=== PATIENT | male | born 1960 | race Caucasian/White ===

== ENCOUNTER 2018-07-15 12:39 | Observation (INO) | payer BC, OTHER ==
[2018-07-15] MEDS ORDERED: NS 0.9% 1000 ML* 1,000 ML IV ONE (12:48)
--- NOTE | 2018-07-15 12:48 | ED ---
Complex/Multi-Sys Presentation - HPI Summary HPI Summary: Patient is a 57 y/o M w/ c/o body aches, chest "ache" for the past three days. He describes present Sx as "like the flu times 100". Patient also notes that he felt constipated this morning. He endorses tremors, chills, diaphoresis which has progressively worsened since Sx onset three days ago. He states oral temp taken at home was 99 F. He denies sore throat, rhinorrhea, and cough. Patient endorses some abdominal pain and decreased appetite. No diarrhea or rashes reported. PMHx of mesothelioma, last chemo was in April. Oncologist is in [place]. On triage, pain is rated 4/10, nothing is noted aggravate/alleviate Sx. Home medications and allergies are reviewed. - History Of Current Complaint Time Seen by Provider: 07/15/18 12:42 Hx Obtained From: Patient Onset/Duration: Lasting Days - three days, Still Present, Worse Since Timing: Constant, Days - three days Severity Currently: Moderate - 4/10 Severity Initially: Mild Character: Dull - "aches" Aggravating Factor(s): nothing Alleviating Factor(s): nothing Associated Signs And Symptoms: Positive: Chest Pain - "ache", Abdominal Pain, Diaphoresis, Other - POSITIVE - BODY ACHES, CONSTIPATION, TREMORS, CHILLS, DECREASED APPETITE; NEGATIVE - SORE THROAT, RHINORRHEA, RASHES. Negative: Cough , Diarrhea, Fever - Allergies/Home Medications Allergies/Adverse Reactions: Allergies Allergy/AdvReac Type Severity Reaction Status Date / Time No Known Allergies Allergy Verified 06/17/16 14:02 Home Medications: Home Medications ALPRAZolam TAB* [Xanax TAB*] 2 mg PO DAILY PRN 07/15/18 [History Confirmed 07/15] Docusate CAP* [Colace Cap*] 100 mg PO DAILY PRN 07/15/18 [History Confirmed 11/27] Hydromorphone HCl [Dilaudid] 4 - 6 mg PO Q4HR PRN 07/15/18 [History Confirmed ] Meclizine TAB* [Antivert 12.5 TAB*] 25 mg PO TID PRN 07/15/18 [History Confirmed 07/15/18] OLANzapine TAB* [Zyprexa 5 MG TAB*] 5 mg PO DAILY 07/15/18 [History Confirmed ] Omeprazole CAP* [Prilosec CAP* 20 MG] 40 mg PO BID 07/15/18 [History Confirmed 07/15/18] Rivaroxaban TAB(*) [Xarelto 20 mg] 20 mg PO DAILY 07/15/18 [History Confirmed ] fentaNYL PATCHs 100 MCG/HR* [Duragesic Patch 100 Mcg/Hr *] 100 mcg TRANSDERM Q72H 07/15/18 [History Confirmed 07/15/18] PMH/Surg Hx/FS Hx/Imm Hx Endocrine/Hematology History: Denies: Hx Diabetes, Hx Thyroid Disease Cardiovascular History: Denies: Hx Hypertension, Hx Pacemaker/ICD Respiratory History: Denies: Hx Asthma History: Denies: Hx Dialysis, Hx Renal Disease Sensory History: Denies: Hx Hearing Aid Psychiatric History: Denies: Hx Panic Disorder - Cancer History Cancer Type, Location and Year: Mesothelioma - Surgical History Surgery Procedure, Year, and Place: APPENDECTOMY - Family History Known Family History: Positive: Hypertension, Other - No FHx aneurysm, DVT Negative: Cardiac Disease, Diabetes - Social History Alcohol Use: Occasionally Substance Use Type: Reports: None Smoking Status (MU): Never Smoked Tobacco Review of Systems Positive: Chills, Skin Diaphoresis, Other - POSITIVE - BODY ACHES, TREMORS . Negative: Fever Positive: Nasal Discharge - NEGATIVE - RHINORRHEA . Negative: Sore Throat Positive: Chest Pain - ACHES Negative: Cough Positive: Abdominal Pain, Other - POSITIVE - DECREASED APPETITE . Negative: Diarrhea Negative: Rash All Other Systems Reviewed And Are Negative: Yes Physical Exam - Summary Physical Exam Summary: Appearance: Pale-appearing, Well-nourished, lying in bed Skin: Warm, dry, no obvious rash Eyes: sclera anicteric, no conjunctival pallor ENT: mucous membranes moist, pharynx appears normal Neck: Supple, nontender Respiratory: Clear to auscultation, no signs of respiratory distress Cardiovascular: Normal S1, S2. No murmurs. Normal distal pulses in tibial and radial bilaterally. Abdomen: Soft, nontender, normal active bowel sounds present Musculoskeletal: Normal, Strength/ROM Intact Neurological: A&Ox3, awake and alert, mentation is normal, speech is fluent and appropriate Psychiatric: affect is normal, does not appear anxious or depressed Triage Information Reviewed: Yes Vital Signs On Initial Exam: Initial Vitals Temp Pulse Resp BP Pulse Ox 98.3 F 88 16 140/84 98 07/15/18 12:45 07/15/18 12:45 07/15/18 12:45 07/15/18 12:45 07/15/18 12:45 Vital Signs Reviewed: Yes Diagnostics - Laboratory Result Diagrams: 07/16/18 05:00 07/16/18 05:00 Lab Statement: Any lab studies that have been ordered have been reviewed, and results considered in the medical decision making process. - Radiology CXR Radiology Interpretation Completed By: Radiologist Summary of Radiographic Findings: IMPRESSION: There is likely some right pleural effusion with some scarring in the right. lung base. Surgical clips are noted in the right hilum. Central line is in the superior. vena cava. This report was reviewed by ED physician. - EKG 1300 Cardiac Rate: NL - rate of 88 bpm EKG Rhythm: Sinus Rhythm Summary of EKG Findings: Normal EKG: NSR at 88 BPM, P waves, QRS complex, and T waves are within normal limits, T waves and intervals are normal, no ischemic changes. This is a normal EKG Re-Evaluation - Re-Evaluation First Eval Re-Evaluation Time: 14:48 Comment: Results of labs and tests were discussed. Second Eval Re-Evaluation Time: 16:05 Change: Worse Comment: Patient is incapable of ambulation at this time, patient to be admitted. He notes that he was diagnosed with mesothelioma in April, was treated at [facility]. He states treatment was going well at first but he eventually developed a fever. Patient was admitted to [facility] and treated there. Complex Multi-Symp Course/Dx Course Of Treatment: Patient is a 57 y/o M w/ c/o body aches, chest "ache" for the past three days. He describes present Sx as "like the flu times 100". Patient also notes that he felt constipated this morning. He endorses tremors, chills, diaphoresis which has progressively worsened since Sx onset three days ago. He states oral temp taken at home was 99 F. He denies sore throat, rhinorrhea, and cough. Patient endorses some abdominal pain and decreased appetite. No diarrhea or rashes reported. PMHx of mesothelioma, last chemo was in April. Oncologist is in [place]. On physical exam, patient is noted to be pale-appearing. CXR IMPRESSION: There is likely some right pleural effusion with some scarring in the right. lung base. Surgical clips are noted in the right hilum. Central line is in the superior. vena cava. Normal EKG: NSR at 88 BPM, P waves, QRS complex, and T waves are within normal limits, T waves and intervals are normal, no ischemic changes. This is a normal EKG. Labs showed RBC 3.42, Hgb 10.4, Hct 32, RDW 18, absolute lymphs 0.5, creatinine 1.33, glucose 107, lactic acid 1.1, alk phos 113, globulin 4.1, albumin/globulin 0.9. UA was negative. Influenza A, B was negative. 1605 - Patient is incapable of ambulation at this time, patient to be admitted. He notes that he was diagnosed with mesothelioma in April, was treated at [facility]. He states treatment was going well at first but he eventually developed a fever. Patient was admitted to [facility] and treated there. Patient's case was discussed with Dr. Fernandez at 1622, Dr. Fernandez accepts for admission. 173 - , patient's oncologist, was reached. He recommends Chest CT and checking iron of patient. - Diagnoses Provider Diagnoses: Generalized weakness, Failure to thrive in adult, Mesothelioma - Physician Notifications Discussed Care Of Patient With: Leia Fernandez Time Discussed With Above Provider: 16:22 Instructed by Provider To: Other - Patient's case was discussed with Dr. Fernandez at 1622, Dr. Fernandez accepts for admission. 173 - , patient's oncologist, was reached. He recommends Chest CT and checking iron of patient. Discharge - Sign-Out/Discharge Documenting (check all that apply): Patient Departure - admit - Discharge Plan Condition: Good Disposition: ADMITTED TO [facility] - Billing Disposition and Condition Condition: GOOD Disposition: Admitted to [facility] - Attestation Statements Document Initiated by Scribe: Yes Documenting Scribe: LADY ROBLES Provider For Whom Scribe is Documenting (Include Credential): SHAREE LOWE MD Scribe Attestation: I, LADY ROBLES , scribed for SHAREE LOWE MD on 07/16/18 at 1009. Scribe Documentation Reviewed: Yes Provider Attestation: The documentation as recorded by the scribeLADY accurately reflects the service I personally performed and the decisions made by me, SHAREE LOWE MD Status of Scribe Document: Viewed
--- OUTSIDE RECORDS SUMMARY | 2018-07-15 12:59 | XMS REPORT ---
:1960 External Reference #:[id number] Author Organization [facility] 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 Bridgett uAstin PA Primary Care Physician Unavailable Payers Type Date Identification Numbers Payment Provider Subscriber Commercial Policy Number: [id number] [facility] Alber Pollack PayID: [id number] [address] [place] [address] Problems Date Description Provider Status Onset: 09/20/2017 Heartburn Angelo Nuñez MD Active Onset: 09/20/2017 Gastrointestinal tract finding Angelo Nuñez MD Active Onset: 09/20/2017 Screening for malignant neoplasm of Angelo Nuñez MD Active colon Onset: 09/20/2017 Right upper quadrant pain Angelo Nuñez MD Active Onset: 09/27/2017 Malignant mesothelioma of pleura Jasiel Sofia DO Active Onset: 09/27/2017 Anxiety state Jasiel Sofia DO Active Onset: 09/27/2017 Pleural effusion, not elsewhere Jasiel Sofia DO Active classified Onset: 09/27/2017 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) Onset: 10/23/2017 Vitamin B deficiency Jasiel Sofia DO Active Onset: 10/23/2017 Nausea and vomiting Jasiel Sofia DO Active Onset: 10/23/2017 Chemotherapy-induced neutropenia Jasiel Sofia DO Active Onset: 10/23/2017 Anemia Jasiel Sofia DO Active Onset: 10/30/2017 Stomatitis Jasiel Sofia DO Active Onset: 12/16/2017 Neoplastic pleural effusion Jasiel Sofia DO Active Onset: 01/17/2018 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 Jasiel Sofia DO Active Onset: 01/27/2018 Dehydration Jasiel Sofia DO Active Onset: 01/30/2018 Stomatitis due to cytotoxic therapy Jasiel Sofia DO Active Onset: 02/19/2018 Acute renal failure syndrome Jasiel Sofia DO Active Onset: 02/19/2018 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 Onset: 05/22/2018 Abscess of lung Jasiel Sofia DO Active Onset: 06/04/2018 Iron deficiency Jasiel Sofia DO Active Onset: 06/09/2018 Mood disorder Jasiel Sofia DO Active Onset: 06/24/2018 Pulmonary embolism Jasiel Sofia DO Active Onset: 06/24/2018 Long-term current use of anticoagulant Jasiel Sofia DO Active Onset: 06/24/2018 Dizziness and giddiness Jasiel Sofia DO Active Family History Date Family Member(s) Problem(s) Comments General Non Contributory First Brother Malignant Lymphoma (Clinical) Social History Type Date Description Comments Marital Status Single Home Environment Lives Alone Occupation Currently Working [employer] Work Status Currently Working Smokeless Tobacco Never Used Smokeless Tobacco ETOH Use Rarely consumes alcohol Smoking Patient denies history of smoking Recreational Drug Use Denies Drug Use Daily Caffeine Consumes on average 4 cups of regular coffee per day Exercise Type/Frequency Exercises sporadically Allergies, Adverse Reactions, Alerts Date Description Reaction Status Severity Comments 09/06/2017 NKDA active Medications Medication Date Status Form Strength Qnty SIG Indications Ordering Provider Meclizine HCL 06/24/ Active Tablets 25mg 120ta 1 tablet by R42 Mele Sofia bs mouth every 8 Jasiel hours when DO necessary dizziness or vertigo Fentanyl 06/24/ Active Patches 100mcg/HR 10uni 1 patch every G89.3 Mele Sofia 72HR ts 72 hours DO Jasiel Zyprexa 06/09/ Active Tablets 5mg 30tab 1 tablet by F06.31 Bismark 2017 s mouth Jasiel, everyday DO Fentanyl 05/22/ Active Patches 100mcg/HR 10uni 1 patch every G89.3 Bismark2017 72HR ts 72 hours Jasiel, DO Dilaudid 05/22/ Active Tablets 4mg 120ta 1-2 tablet G89.3 [email or web address] bs by mouth Jasiel, every 4 hours DO as needed for pain Alprazolam 03/03/ Active Tablets 1mg 75tab 1/2 tablet po Bismark2017 s qAM,1 tab po Jasiel, prn anxiety DO in the afternoon, 1 po qhs Docusate Sodium 10/25/ Active Capsules 100mg 60cap take 1 2017 s capsule by Lauren mouth twice DO daily as needed for constipation Zofran Odt 10/23/ Active Tablets 8mg 30tab 1 on the , 2017 Dispers s tongue every Lauren, 8 hours as DO needed for nausea Compazine 10/23/ Active Tablets 10mg 90tab 10 mg by Bismark 2017 s mouth q6prn Jasiel, for nausea DO Omeprazole 09/13/ Active Capsules 40mg 60cap take [address]arian[address] pinedo twice daily. MD Jerald Vancomycin HCL / Active Solution 1gm once daily Unknown 0000 Rec Xarelto / Active Tablets 20mg 30tab take 1 tablet Karpenko, 0000 s by mouth once Jasiel, daily With DO Dinner Gabapentin / Active Capsules 300mg 90cap Take One Karpenko, 0000 s Capsule Jasiel, (300MG) 3 DO (Three) Times A Day( per pt 2 times) Hydromorphone / Active Tablets 4mg Take 1 To 1 Unknown HCL 0000 And 1/2 Tablets (4-6MG Total) Every 4 (Four) Hours as Need Levaquin 06/16/ Hx Tablets 500mg 7tabs 1 by mouth J90 Bismark 2017 - every day Jasiel, 06/23/ DO 2017 Magnesium Oxide 02/24/ Hx Tablets 400mg 60tab 1 tablet by Bismark 2017 - s mouth twice a Jasiel, 06/24/ day DO 2017 Ciprofloxacin 01/30/ Hx Tablets 500mg 14tab 1 tablet by K12.31 BERENICE Sofia 2017 - s mouth twice a Jasiel, day DO 2017 Fluconazole 01/30/ Hx Tablets 100mg 7tabs 1 tablet by K12.31 Bismark, 2017 - mouth daily Jasiel, 2017 Zyprexa 12/27/ Hx Tablets 5mg 30tab 1 tablet PO Bismark, 2017 - s qday Jasiel, 2017 Zoloft 12/27/ Hx Tablets 50mg 30tab 1 tablet by Bismark, 2017 - s mouth daily Jasiel, 2017 Haloperidol 11/19/ Hx Tablets 1mg 90tab prn 1 tablet Bismark, 2017 - s by mouth Jasiel, 06/09/ every 6 hours DO 2017 when necessary for hiccups Sertraline HCL 11/18/ Hx Tablets 50mg 30tab 1 by mouth Lawrence, 2017 - s every day Lauren, 2017 Oxycodone HCL 10/23/ Hx Tablets 10mg 120ta 1 tablet by Bismark, 2017 - bs mouth every Jasiel, 06/24/ 6-8 hours as DO 2017 needed pain Oxycontin 10/23/ Hx Tab ER 20mg 60tab 1 tablet PO Q Bismark, 2017 - 12H s 12Hrs Jasiel, 12/09/ Abuse-Det 2017 Xanax 14/ Hx Tablets 1mg 60tab 1 tablet by F06.4 Lawrence, 2017 - s mouth every 8 Lauren, 02/24/ hours as DO 2017 needed anxiety Folic Acid 10/23/ Hx Tablets 1mg 30tab 1 by mouth Bismark 2017 - s every day Jasiel, 2017 Lorazepam 10/23/ Hx Tablets 0.5mg 90tab take 1 tablet Bimsark 2017 - s by mouth Jasiel, 03/03/ three times a DO 2017 day as needed for nausea after chemo Tramadol HCL 09/27/ Hx Tablets 50mg 90tab Take 1 tablet C45.0 Dariana 2017 - s by mouth MD Jerald 10/09/ every 8 hours 2017 as needed for moderate pain. Tussionex 09/27/ Hx Suer 10-8mg/5M 115ml 1 teaspoon by Vern Sofiakinemarga 2018 - L mouth q12prn Jasiel, Extended 10/09/ cough DO Release 2017 [place] 09/27/ Hx Tablets 10-325mg 120ta 1 tablet by Bismark 2018 - bs mouth every 6 Jasiel, 02/24/ hours when DO 2018 necessary pain Xanax 09/27/ Hx Tablets 0.5mg 90tab 1 tablet by Bismark 2018 - s mouth every 8 Jasiel, 12/12/ hours as DO 2018 needed for anxiety Pleural Fluid 09/06/ Hx J90 [place], Cytology 2017 MD Jerald Omeprazole / Hx Capsules 10mg 1 tab by Unknown 0000 - DR mouth every day 2017 Fentanyl / Hx Patches 75mcg/HR Apply One Unknown 0000 - 72HR Patch Every 3 2017 Furosemide / Hx Tablets 40mg Take 1 Tablet Unknown 0000 - (40MG) Every Morning 2017 Medications Administered in Office Medication Date Status Form Strength Qnty SIG Indications Ordering Provider Vitamin B12 Administered Injection Oncology Injection 1000 018 Nurse mcg/Ml Theraputic Or Administered Injection Oncology Diagnostic 018 Nurse Injection Vital Signs Date Vital Result Comment 06/24/2018 BP Systolic 109 mmHg BP Diastolic 72 mmHg Body Temperature 97.8 F Heart Rate 96 /min Respiratory Rate 18 /min O2 % BldC Oximetry 95 % Pain Level 4 06/23/2018 BP Systolic Lying Down Resting Right Arm 122 mmHg P 94 BP Diastolic Lying Down Resting Right Arm 80 mmHg P 94 BP Systolic Sitting Resting Right Arm 135 mmHg P 94 BP Diastolic Sitting Resting Right Arm 75 mmHg P 94 BP Systolic Standing Resting Right Arm 114 mmHg P 112 BP Diastolic Standing Resting Right Arm 72 mmHg P 112 Body Temperature 98.6 F Respiratory Rate 20 /min Weight 172.00 lb O2 % BldC Oximetry 96 % Pain Level 7 right ribs 06/23/2018 BP Systolic Lying Down Resting Right Arm 132 mmHg P 98 BP Diastolic Lying Down Resting Right Arm 77 mmHg P 98 BP Systolic Sitting Resting Right Arm 135 mmHg P 99 BP Diastolic Sitting Resting Right Arm 75 mmHg P 99 BP Systolic Standing Resting Right Arm 98 mmHg P 112 BP Diastolic Standing Resting Right Arm 56 mmHg P 112 Body Temperature 9.2 F Respiratory Rate 20 /min Weight 172.00 lb O2 % BldC Oximetry 95 % Pain Level 0 06/09/2018 BP Systolic Sitting Left Arm 102 mmHg BP Diastolic Sitting Left Arm 72 mmHg Heart Rate 102 /min Respiratory Rate 14 /min Weight 178.00 lb O2 % BldC Oximetry 94 % Room air 05/22/2018 BP Systolic 111 mmHg BP Diastolic 69 mmHg Body Temperature 97.4 F Heart Rate 98 /min Weight 181.50 lb O2 % BldC Oximetry 99 % Pain Level 0 04/04/2018 BP Systolic 116 mmHg BP Diastolic 67 mmHg Body Temperature 97.1 F Heart Rate 88 /min Respiratory Rate 20 /min Height 72 inches 6'0" Weight 195.00 lb BMI (Body Mass Index) 26.4 kg/m2 BSA (Body Surface Area) 2.11 m2 [place] body weight in kilograms 81 O2 % BldC Oximetry 99 % Ra Pain Level 0 03/31/2018 BP Systolic 104 mmHg Left BP Diastolic 74 mmHg Left Body Temperature 97.8 F Heart Rate 80 /min Respiratory Rate 20 /min Weight 198.25 lb O2 % BldC Oximetry 99 % Pain Level 0 03/28/2018 BP Systolic 119 mmHg Left BP Diastolic 73 mmHg Left Body Temperature 97.8 F Heart Rate 91 /min Respiratory Rate 19 /min Weight 199.00 lb O2 % BldC Oximetry 100 % Pain Level 0 03/24/2018 BP Systolic 122 mmHg Left BP Diastolic 67 mmHg Left Body Temperature 97.8 F Heart Rate 76 /min Respiratory Rate 20 /min Weight 195.38 lb O2 % BldC Oximetry 98 % Pain Level 3 Low Back 03/18/2018 BP Systolic 119 mmHg BP Diastolic 79 mmHg Body Temperature 97.2 F Heart Rate 73 /min Respiratory Rate 18 /min Weight 196.00 lb O2 % BldC Oximetry 100 % Pain Level 3 lower back 03/14/2018 BP Systolic 117 mmHg Left BP Diastolic 67 mmHg Left Body Temperature 97.5 F Heart Rate 85 /min Respiratory Rate 20 /min Weight 195.38 lb O2 % BldC Oximetry 100 % Ra Pain Level 2 Back 03/12/2018 BP Systolic 107 mmHg Left BP Diastolic 83 mmHg Left Body Temperature 97.3 F Heart Rate 86 /min Respiratory Rate 20 /min O2 % BldC Oximetry 95 % Pain Level 4 Back 03/06/2018 BP Systolic Sitting Right Arm 123 mmHg 0758 BP Diastolic Sitting Right Arm 83 mmHg 0758 BP Systolic Lying Down Resting Right Arm 128 mmHg 0756 BP Diastolic Lying Down Resting Right Arm 80 mmHg 0756 BP Systolic Standing Resting Right Arm 119 mmHg 0800 BP Diastolic Standing Resting Right Arm 87 mmHg 0800 03/06/2018 BP Systolic 108 mmHg BP Diastolic 66 mmHg Body Temperature 98.0 F Heart Rate 85 /min Respiratory Rate 18 /min Weight 199.50 lb O2 % BldC Oximetry 97 % Pain Level 0 03/03/2018 BP Systolic 139 mmHg L BP Diastolic 85 mmHg L Body Temperature 98.2 F Heart Rate 76 /min Respiratory Rate 20 /min Weight 201.25 lb O2 % BldC Oximetry 99 % Pain Level 0 02/27/2018 BP Systolic 109 mmHg Left BP Diastolic 78 mmHg Left Body Temperature 98.0 F Heart Rate 83 /min Respiratory Rate 20 /min Weight 199.12 lb Pain Level 0 02/24/2018 BP Systolic 132 mmHg BP Diastolic 83 mmHg Body Temperature 97.7 F Heart Rate 89 /min Respiratory Rate 20 /min Weight 199.12 lb O2 % BldC Oximetry 97 % Pain Level 0 02/18/2018 BP Systolic 112 mmHg Left BP Diastolic 62 mmHg Left Body Temperature 98.2 F Heart Rate 82 /min Respiratory Rate 20 /min Weight 201.38 lb O2 % BldC Oximetry 98 % Pain Level 0 02/17/2018 BP Systolic 115 mmHg Left BP Diastolic 73 mmHg Left Body Temperature 98.0 F Heart Rate 92 /min Respiratory Rate 20 /min Weight 199.12 lb O2 % BldC Oximetry 97 % Pain Level 0 02/14/2018 BP Systolic 130 mmHg BP Diastolic 74 mmHg Body Temperature 98.6 F Heart Rate 92 /min Respiratory Rate 20 /min Weight 203.25 lb O2 % BldC Oximetry 97 % Pain Level 0 02/13/2018 BP Systolic 111 mmHg BP Diastolic 68 mmHg Body Temperature 98.6 F Heart Rate 92 /min Respiratory Rate 18 /min Weight 204.25 lb O2 % BldC Oximetry 95 % Pain Level 0 02/10/2018 BP Systolic 129 mmHg Left BP Diastolic 73 mmHg Left Body Temperature 97.8 F Heart Rate 85 /min Respiratory Rate 20 /min Weight 201.12 lb O2 % BldC Oximetry 97 % Pain Level 0 01/30/2018 BP Systolic 129 mmHg BP Diastolic 78 mmHg Body Temperature 96.6 F Heart Rate 70 /min Respiratory Rate 16 /min Weight 197.38 lb O2 % BldC Oximetry 99 % Pain Level 0 01/27/2018 BP Systolic 98 mmHg BP Diastolic 61 mmHg Body Temperature 96.7 F Heart Rate 83 /min Respiratory Rate 16 /min Weight 199.00 lb O2 % BldC Oximetry 98 % 01/23/2018 BP Systolic 119 mmHg BP Diastolic 71 mmHg Body Temperature 98.2 F Heart Rate 97 /min Respiratory Rate 18 /min Weight 202.50 lb O2 % BldC Oximetry 97 % Pain Level 0 01/20/2018 BP Systolic 123 mmHg Right BP Diastolic 73 mmHg Right Body Temperature 97.8 F Heart Rate 83 /min Respiratory Rate 20 /min Weight 200.50 lb O2 % BldC Oximetry 98 % Pain Level 0 01/17/2018 BP Systolic 128 mmHg BP Diastolic 89 mmHg Body Temperature 96.4 F Heart Rate 84 /min Respiratory Rate 16 /min Weight 199.00 lb O2 % BldC Oximetry 100 % 01/09/2018 BP Systolic 108 mmHg BP Diastolic 71 mmHg Body Temperature 97.9 F Heart Rate 80 /min Respiratory Rate 18 /min Weight 194.38 lb O2 % BldC Oximetry 97 % Pain Level 2 12/30/2017 BP Systolic 120 mmHg Left BP Diastolic 82 mmHg Left Body Temperature 98.0 F Heart Rate 80 /min Respiratory Rate 20 /min Weight 200.12 lb O2 % BldC Oximetry 96 % Pain Level 0 12/16/2017 BP Systolic 117 mmHg BP Diastolic 74 mmHg Body Temperature 96.8 F Heart Rate 82 /min Weight 197.00 lb O2 % BldC Oximetry 98 % 12/12/2017 BP Systolic 124 mmHg Left BP Diastolic 75 mmHg Left Body Temperature 98.2 F Heart Rate 94 /min Respiratory Rate 20 /min Weight 198.50 lb O2 % BldC Oximetry 98 % Pain Level 0 12/09/2017 BP Systolic 114 mmHg BP Diastolic 72 mmHg Body Temperature 98.2 F Heart Rate 85 /min Respiratory Rate 18 /min Weight 195.12 lb O2 % BldC Oximetry 97 % Pain Level 0 11/25/2017 BP Systolic 114 mmHg BP Diastolic 73 mmHg Body Temperature 97.8 F Heart Rate 89 /min Respiratory Rate 16 /min Weight 197.00 lb O2 % BldC Oximetry 95 % Pain Level 0 11/21/2017 BP Systolic 110 mmHg Left BP Diastolic 68 mmHg Left Body Temperature 98.2 F Heart Rate 95 /min Respiratory Rate 18 /min Weight 199.12 lb O2 % BldC Oximetry 99 % Pain Level 0 11/18/2017 BP Systolic 114 mmHg BP Diastolic 82 mmHg Body Temperature 98.0 F Heart Rate 91 /min Respiratory Rate 18 /min Weight 196.25 lb O2 % BldC Oximetry 97 % Pain Level 0 10/30/2017 BP Systolic 113 mmHg BP Diastolic 70 mmHg Body Temperature 98.2 F Heart Rate 90 /min Respiratory Rate 17 /min Weight 192.00 lb O2 % BldC Oximetry 97 % Pain Level 0 10/25/2017 BP Systolic 118 mmHg BP Diastolic 85 mmHg Body Temperature 98.0 F Heart Rate 105 /min Respiratory Rate 18 /min Height 72.5 inches 6'0.50" Weight 201.00 lb BMI (Body Mass Index) 26.9 kg/m2 BSA (Body Surface Area) 2.15 m2 [place] body weight in kilograms 82 O2 % BldC Oximetry 95 % Pain Level 3 10/22/2017 BP Systolic 128 mmHg BP Diastolic 88 mmHg Height 72 inches 6'0" Weight 201.00 lb BMI (Body Mass Index) 27.3 kg/m2 BSA (Body Surface Area) 2.14 m2 [place] body weight in kilograms 81 2017 BP Systolic 133 mmHg BP Diastolic 89 mmHg Body Temperature 98.5 F Heart Rate 84 /min Respiratory Rate 16 /min Weight 203.00 lb O2 % BldC Oximetry 98 % Pain Level 8 nerve pain 09/30/2017 BP Systolic 122 mmHg BP Diastolic 82 mmHg Height 72 inches 6'0" Weight 203.00 lb BMI (Body Mass Index) 27.5 kg/m2 BSA (Body Surface Area) 2.14 m2 [place] body weight in kilograms 81 09/27/2017 BP Systolic Sitting Left Arm 126 mmHg BP Diastolic Sitting Left Arm 82 mmHg Heart Rate 90 /min Respiratory Rate 16 /min Weight 207.00 lb O2 % BldC Oximetry 95 % Ora 09/20/2017 BP Systolic Sitting Left Arm 100 mmHg BP Diastolic Sitting Left Arm 70 mmHg Heart Rate 100 /min Respiratory Rate 16 /min Height 72 inches 6'0" Weight 207.38 lb BMI (Body Mass Index) 28.1 kg/m2 BSA (Body Surface Area) 2.16 m2 [place] body weight in kilograms 81 09/06/2017 BP Systolic Sitting Right Arm 122 mmHg BP Diastolic Sitting Right Arm 78 mmHg Heart Rate 87 /min Respiratory Rate 14 /min Weight 206.00 lb O2 % BldC Oximetry 94 % Room air Results Test Date Test Result H/L Range Note CBC W/Automated Diff 06/23/2018 White Blood Count 5.4 K/uL 3.4-10.5 1 Red Blood Count 2.99 M/uL Low 4.20-5.80 1 Hemoglobin 9.0 gm/dL Low 12.8-17.0 1 Hematocrit 29.6 % Low 38.0-48.0 1 Mean Cell Volume 99.0 fl High 80.0-96.0 1 Mean Corpuscular HGB 30.1 pg 27.0-33.0 1 Mean Corpuscular HGB Conc 30.4 g/dL Low 31.7-36.0 1 Platelet Count 264 K/uL 155-360 1 Red Cell Distri Width SD 57.4 fl High 36-51 1 Red Cell Distri Width %CV 16.3 % High 11.6-15.8 1 Mean Platelet Volume 9.9 fL 6.6-10.6 1 Neut% 74.5 % High 33.0-73.0 1 Lymph % 8.6 % Low 20.0-42.0 1 [place] % 13.4 % High 0.0-10.0 1 Eo% 2.9 % 0.0-6.6 1 Bas% 0.6 % 0.0-1.1 1 Neut# 4.05 K/uL 1.8-7.0 1 Lymph # 0.47 K/uL Low 1.0-4.0 1 [place] # 0.73 K/uL 0.0-0.8 1 Eos # 0.16 K/uL 0.0-0.5 1 Baso # 0.03 K/uL 0.0-0.1 1 Comprehensive Metabolic Panel 06/23/2018 Glucose 252 mg/dL High 74-106 1 BUN 19 mg/dL High 7-18 1 Creatinine 2.0 mg/dL High 0.6-1.3 1 Glom Filtration Rate, Estimate 37 mL/min >60 1 If 45 mL/min >60 1, 2 BUN/Creat 9.5 ratio 1 Sodium 133 mmol/L Low 136-145 1 Potassium 3.6 mmol/L 3.5-5.1 1 Chloride 94 mmol/L Low 98-107 1 Carbon Dioxide 32 mmol/L 21-32 1 Anion Gap 7 mEq/L Low 8-16 1 Calcium 8.8 mg/dL 8.5-10.1 1 Total Protein 8.1 g/dL 6.4-8.2 1 Albumin 2.8 g/dL Low 3.4-5.0 1 Globulin 5.3 g/dL High 1.9-4.3 1 Alb/Glob 0.5 ratio 1 Bilirubin,Total 0.3 mg/dL 0.2-1.0 1 Sgot/Ast 14 U/L Low 15-37 1, 3 SGPT/Alt 10 U/L Low 12-78 1, 4 Alkaline Phosphatase 118 U/L High 45-117 1 Iron-Tibc-%Sat 06/23/2018 Serum Iron 20 g/dL Low 65-175 1 Total Iron Binding Capacity 199 g/dL Low 250-450 1 Transferrin %Saturation 10 % Low 12-57 1 Laboratory test finding 06/23/2018 Ferritin 826 ng/mL High 26-388 1 Magnesium 2.1 mg/dL 1.8-2.4 1 CBC W/Automated Diff 06/05/2018 White Blood Count 4.3 K/uL 3.4-10.5 5 Red Blood Count 2.61 M/uL Low 4.20-5.80 5 Hemoglobin 8.1 gm/dL Low 12.8-17.0 5 Hematocrit 26.7 % Low 38.0-48.0 5 Mean Cell Volume 102.3 fl High 80.0-96.0 5 Mean Corpuscular HGB 31.0 pg 27.0-33.0 5 Mean Corpuscular HGB Conc 30.3 g/dL Low 31.7-36.0 5 Platelet Count 303 K/uL 155-360 5 Red Cell Distri Width SD 60.2 fl High 36-51 5 Red Cell Distri Width %CV 16.6 % High 11.6-15.8 5 Mean Platelet Volume 9.6 fL 6.6-10.6 5 Neut% 59.6 % 33.0-73.0 5 Lymph % 17.6 % Low 20.0-42.0 5 [place] % 18.1 % High 0.0-10.0 5 Eo% 4.0 % 0.0-6.6 5 Bas% 0.7 % 0.0-1.1 5 Neut# 2.53 K/uL 1.8-7.0 5 Lymph # 0.75 K/uL Low 1.0-4.0 5 [place] # 0.77 K/uL 0.0-0.8 5 Eos # 0.17 K/uL 0.0-0.5 5 Baso # 0.03 K/uL 0.0-0.1 5 Aot Request 06/05/2018 Aot Request Test(s) added 5, 6 Tests to be added: CRP to admission <SEE NOTE> 5, 7 Basic Metabolic Panel 06/05/2018 Glucose 97 mg/dL 74-106 5 BUN 14 mg/dL 7-18 5 Creatinine 1.7 mg/dL High 0.6-1.3 5 Glom Filtration Rate, Estimate 45 mL/min >60 5 If 54 mL/min >60 5, 8 BUN/Creat 8.2 ratio 5 Sodium 138 mmol/L 136-145 5 Potassium 3.8 mmol/L 3.5-5.1 5 Chloride 98 mmol/L 98-107 5 Carbon Dioxide 32 mmol/L 21-32 5 Anion Gap 8 mEq/L 8-16 5 Calcium 9.1 mg/dL 8.5-10.1 5 Laboratory test 06/05/2018 C-Reactive 72.8 mg/L High <3.0 5 finding Protein,Quant Blood Culture 06/04/2018 Blood Culture Aerobic NO GROWTH: 5, 9 FINAL <SEE NOTE> Blood Culture Anaerobic NO GROWTH: FINAL <SEE NOTE> 5, 10 Blood Culture 06/04/2018 Blood Culture Aerobic NO GROWTH: FINAL <SEE NOTE> 5, 11 Blood Culture Anaerobic NO GROWTH: FINAL <SEE NOTE> 5, 12 CBC W/Automated Diff 05/22/2018 White Blood Count 8.7 K/uL 3.4-10.5 13 Red Blood Count 2.97 M/uL Low 4.20-5.80 13 Hemoglobin 9.5 gm/dL Low 12.8-17.0 13 Hematocrit 30.4 % Low 38.0-48.0 13 Mean Cell Volume 102.4 fl High 80.0-96.0 13 Mean Corpuscular HGB 32.0 pg 27.0-33.0 13 Mean Corpuscular HGB Conc 31.3 g/dL Low 31.7-36.0 13 Platelet Count 438 K/uL High 155-360 13 Red Cell Distri Width SD 60.4 fl High 36-51 13 Red Cell Distri Width %CV 16.6 % High 11.6-15.8 13 Mean Platelet Volume 10.0 fL 6.6-10.6 13 Neut% 74.9 % High 33.0-73.0 13 Lymph % 10.3 % Low 20.0-42.0 13 [place] % 13.1 % High 0.0-10.0 13 Eo% 1.0 % 0.0-6.6 13 Bas% 0.7 % 0.0-1.1 13 Neut# 6.50 K/uL 1.8-7.0 13 Lymph # 0.89 K/uL Low 1.0-4.0 13 [place] # 1.14 K/uL High 0.0-0.8 13 Eos # 0.09 K/uL 0.0-0.5 13 Baso # 0.06 K/uL 0.0-0.1 13 Comprehensive Metabolic Panel 05/22/2018 Glucose 101 mg/dL 74-106 13 BUN 18 mg/dL 7-18 13 Creatinine 1.9 mg/dL High 0.6-1.3 13 Glom Filtration Rate, Estimate 39 mL/min >60 13 If 48 mL/min >60 13, 14 BUN/Creat 9.4 ratio 13 Sodium 137 mmol/L 136-145 13 Potassium 4.6 mmol/L 3.5-5.1 13 Chloride 97 mmol/L Low 98-107 13 Carbon Dioxide 31 mmol/L 21-32 13 Anion Gap 9 mEq/L 8-16 13 Calcium 9.8 mg/dL 8.5-10.1 13 Total Protein 8.6 g/dL High 6.4-8.2 13 Albumin 2.8 g/dL Low 3.4-5.0 13 Globulin 5.8 g/dL High 1.9-4.3 13 Alb/Glob 0.5 ratio 13 Bilirubin,Total 0.3 mg/dL 0.2-1.0 13 Sgot/Ast 18 U/L 15-37 13 SGPT/Alt 17 U/L 12-78 13 Alkaline Phosphatase 161 U/L High 45-117 13 Iron-Tibc-%Sat 05/22/2018 Serum Iron 23 g/dL Low 65-175 13 Total Iron Binding Capacity 204 g/dL Low 250-450 13 Transferrin %Saturation 11 % Low 12-57 13 Laboratory test finding 04/02/2018 Point of Care Glucose 93 mg/dL 70-100 15 Ua RFX Micro & Culture II 03/31/2018 Urine Color YELLOW Yellow 16 Urine Clarity CLEAR Clear 16 Urine Glucose - Dipstick NEGATIVE mg/dL Negative 16 Urine Bilirubin - Dipstick NEGATIVE Negative 16 Urine Ketone NEGATIVE mg/dL Negative 16 Urine Specific [place] 1.015 1.010-1.030 16 Urine Blood NEGATIVE Negative 16 Urine PH 6.0 Low 6.5-7.5 16 Urine Protein - Dipstick NEGATIVE mg/dL Negative 16 Urine Urobilinogen - Dipstick 0.2 E.U./dL 0.2-1.0 16 Urine Nitrite - Dipstick NEGATIVE Negative 16 Urine Leuk Esterase NEGATIVE Negative 16 Basic Metabolic Panel 03/31/2018 Glucose 77 mg/dL 74-106 16 BUN 26 mg/dL High 7-18 16 Creatinine 1.2 mg/dL 0.6-1.3 16 Glom Filtration Rate, Estimate >60 mL/min >60 16 If >60 mL/min >60 16, 17 BUN/Creat 21.6 ratio 16 Sodium 144 mmol/L 136-145 16 Potassium 5.0 mmol/L 3.5-5.1 16 Chloride 107 mmol/L 98-107 16 Carbon Dioxide 26 mmol/L 21-32 16 Anion Gap 11 mEq/L 8-16 16 Calcium 8.6 mg/dL 8.5-10.1 16 CBS W/Automated Diff 03/24/2018 White Blood Count 6.0 K/uL 3.4-10.5 16 Red Blood Count 2.86 M/uL Low 4.20-5.80 16 Hemoglobin 10.6 gm/dL Low 12.8-17.0 16 Hematocrit 32.9 % Low 38.0-48.0 16 Mean Cell Volume 115.0 fl High 80.0-96.0 16 Mean Corpuscular HGB 37.1 pg High 27.0-33.0 16 Mean Corpuscular HGB Conc 32.2 g/dL 31.7-36.0 16 Platelet Count 216 K/uL 155-360 16 Red Cell Distri Width SD 56.6 fl High 36-51 16 Red Cell Distri Width %CV 14.1 % 11.6-15.8 16 Mean Platelet Volume 10.9 fL High 6.6-10.6 16 Neut% 70.7 % 33.0-73.0 16 Lymph % 11.8 % Low 20.0-42.0 16 [place] % 16.0 % High 0.0-10.0 16 Eo% 1.2 % 0.0-6.6 16 Bas% 0.3 % 0.0-1.1 16 Neut# 4.24 K/uL 1.8-7.0 16 Lymph # 0.71 K/uL Low 1.0-4.0 16 [place] # 0.96 K/uL High 0.0-0.8 16 Eos # 0.07 K/uL 0.0-0.5 16 Baso # 0.02 K/uL 0.0-0.1 16 RBC Morphology Only 03/24/2018 Anisocytosis 1+ 16 Macrocytosis 1+ 16 Toxic Granulation 0-1+ 16 Comment . 16 Comprehensive Metabolic Panel 03/24/2018 Glucose 81 mg/dL 74-106 16 BUN 21 mg/dL High 7-18 16 Creatinine 1.5 mg/dL High 0.6-1.3 16 Glom Filtration Rate, Estimate 52 mL/min >60 16 If >60 mL/min >60 16, 18 BUN/Creat 14.0 ratio 16 Sodium 144 mmol/L 136-145 16 Potassium 4.6 mmol/L 3.5-5.1 16 Chloride 109 mmol/L High 98-107 16 Carbon Dioxide 29 mmol/L 21-32 16 Anion Gap 6 mEq/L Low 8-16 16 Calcium 8.5 mg/dL 8.5-10.1 16 Total Protein 7.1 g/dL 6.4-8.2 16 Albumin 3.2 g/dL Low 3.4-5.0 16 Globulin 3.9 g/dL 1.9-4.3 16 Alb/Glob 0.8 ratio 16 Bilirubin,Total 0.1 mg/dL Low 0.2-1.0 16 Sgot/Ast 13 U/L Low 15-37 16, 19 SGPT/Alt 21 U/L 12-78 16 Alkaline Phosphatase 142 U/L High 45-117 16 Laboratory test 03/24/2018 Magnesium 2.1 mg/dL 1.8-2.4 16 finding Slide Review 03/24/2018 Slide Review (SEE NOTE) 16, 20 Laboratory test 03/24/2018 Path Review: <pending> 16 finding Xray 03/12/2018 Ultrasound, Venous <pending> Doppler Arm/Leg Unilateral Limited CBS W/Automated Diff 03/12/2018 White Blood Count 13.8 K/uL High 3.4-10.5 21 Red Blood Count 2.94 M/uL Low 4.20-5.80 21 Hemoglobin 11.0 gm/dL Low 12.8-17.0 21 Hematocrit 33.1 % Low 38.0-48.0 21 Mean Cell Volume 112.6 fl High 80.0-96.0 21 Mean Corpuscular HGB 37.4 pg High 27.0-33.0 21 Mean Corpuscular HGB Conc 33.2 g/dL 31.7-36.0 21 Platelet Count 178 K/uL 155-360 21 Red Cell Distri Width SD 53.7 fl High 36-51 21 Red Cell Distri Width %CV 13.4 % 11.6-15.8 21 Mean Platelet Volume 11.3 fL High 6.6-10.6 21 Neut% 86.1 % High 33.0-73.0 21 Lymph % 3.9 % Low 20.0-42.0 21 [place] % 9.6 % 0.0-10.0 21 Eo% 0.2 % 0.0-6.6 21 Bas% 0.2 % 0.0-1.1 21 Neut# 11.87 K/uL High 1.8-7.0 21 Lymph # 0.54 K/uL Low 1.0-4.0 21 [place] # 1.33 K/uL High 0.0-0.8 21 Eos # 0.03 K/uL 0.0-0.5 21 Baso # 0.03 K/uL 0.0-0.1 21 Comprehensive Metabolic Panel 03/12/2018 Glucose 110 mg/dL High 74-106 21 BUN 20 mg/dL High 7-18 21 Creatinine 1.4 mg/dL High 0.6-1.3 21 Glom Filtration Rate, Estimate 56 mL/min >60 21 If >60 mL/min >60 21, 22 BUN/Creat 14.2 ratio 21 Sodium 142 mmol/L 136-145 21 Potassium 4.9 mmol/L 3.5-5.1 21 Chloride 108 mmol/L High 98-107 21 Carbon Dioxide 26 mmol/L 21-32 21 Anion Gap 8 mEq/L 8-16 21 Calcium 9.1 mg/dL 8.5-10.1 21 Total Protein 7.4 g/dL 6.4-8.2 21 Albumin 3.5 g/dL 3.4-5.0 21 Globulin 3.9 g/dL 1.9-4.3 21 Alb/Glob 0.9 ratio 21 Bilirubin,Total 0.4 mg/dL 0.2-1.0 21 Sgot/Ast 21 U/L 15-37 21 SGPT/Alt 21 U/L 12-78 21 Alkaline Phosphatase 234 U/L High 45-117 21 Laboratory test finding 03/12/2018 Magnesium 1.9 mg/dL 1.8-2.4 21, 23 Slide Review 03/12/2018 Slide Review DIFF ORDERED 21 Laboratory test finding 03/12/2018 Path Review: <pending> 21, 24 Differential-WBC 03/12/2018 Total Cells Counted 100 #CELLS 21 Confirm Band% 4 % 0-8 21 Neutrophils% 80 % High 33-73 21 Lymph% 4 % Low 20-42 21 Monocyte% 10 % 0-10 21 Eosinophil% 1 % 0-5 21 Basophil% 1 % 0-2 21 Platelet Estimate NORMAL 21 Anisocytosis 0-1+ 21 Macrocytosis 1+ 21 Xray 03/06/2018 CT, Head/Brain Without Contrast <pending> Differential-WBC Confirm 03/06/2018 Total Cells Counted 100 #CELLS 25 Band% 5 % 0-8 25 Neutrophils% 92 % High 33-73 25 Lymph% 2 % Low 20-42 25 Monocyte% 1 % 0-10 25 Platelet Estimate NORMAL 25 Anisocytosis 1+ 25 Macrocytosis 2+ 25 Stomatocyte 0-1+ 25 Basic Metabolic Panel 03/06/2018 Glucose 111 mg/dL High 74-106 26 BUN 21 mg/dL High 7-18 26 Creatinine 1.6 mg/dL High 0.6-1.3 26 Glom Filtration Rate, Estimate 48 mL/min >60 26 If 58 mL/min >60 26, 27 BUN/Creat 13.1 ratio 26 Sodium 141 mmol/L 136-145 26 Potassium 4.4 mmol/L 3.5-5.1 26 Chloride 105 mmol/L 98-107 26 Carbon Dioxide 27 mmol/L 21-32 26 Anion Gap 9 mEq/L 8-16 26 Calcium 8.8 mg/dL 8.5-10.1 26 Laboratory test finding 03/06/2018 Path Review: <pending> 28, 29 Slide Review 03/06/2018 Slide Review DIFF ORDERED 28 Laboratory test finding 03/06/2018 Magnesium 1.7 mg/dL Low 1.8-2.4 30, 31 Comprehensive Metabolic 03/06/2018 Glucose 111 mg/dL High 74-106 30 Panel BUN 21 mg/dL High 7-18 30 Creatinine 1.6 mg/dL High 0.6-1.3 30 Glom Filtration Rate, Estimate 48 mL/min >60 30 If 58 mL/min >60 30, 32 BUN/Creat 13.1 ratio 30 Sodium 141 mmol/L 136-145 30 Potassium 4.4 mmol/L 3.5-5.1 30 Chloride 105 mmol/L 98-107 30 Carbon Dioxide 27 mmol/L 21-32 30 Anion Gap 9 mEq/L 8-16 30 Calcium 8.8 mg/dL 8.5-10.1 30 Total Protein 7.1 g/dL 6.4-8.2 30 Albumin 3.2 g/dL Low 3.4-5.0 30 Globulin 3.9 g/dL 1.9-4.3 30 Alb/Glob 0.8 ratio 30 Bilirubin,Total 0.3 mg/dL 0.2-1.0 30 Sgot/Ast 19 U/L 15-37 30 SGPT/Alt 17 U/L 12-78 30 Alkaline Phosphatase 164 U/L High 45-117 30 CBS W/Automated Diff 03/06/2018 White Blood Count 60.5 K/uL High 3.4-10.5 33 Red Blood Count 3.07 M/uL Low 4.20-5.80 33 Hemoglobin 11.6 gm/dL Low 12.8-17.0 33 Hematocrit 35.0 % Low 38.0-48.0 33 Mean Cell Volume 114.0 fl High 80.0-96.0 33 Mean Corpuscular HGB 37.8 pg High 27.0-33.0 33 Mean Corpuscular HGB Conc 33.1 g/dL 31.7-36.0 33 Platelet Count 342 K/uL 155-360 33 Red Cell Distri Width SD 60.2 fl High 36-51 33 Red Cell Distri Width %CV 14.8 % 11.6-15.8 33 Mean Platelet Volume 11.0 fL High 6.6-10.6 33 Neut% 96.8 % High 33.0-73.0 33 Lymph % 1.4 % Low 20.0-42.0 33 [place] % 1.5 % 0.0-10.0 33 Eo% 0.1 % 0.0-6.6 33 Bas% 0.2 % 0.0-1.1 33 Neut# 58.56 K/uL High 1.8-7.0 33 Lymph # 0.87 K/uL Low 1.0-4.0 33 [place] # 0.90 K/uL High 0.0-0.8 33 Eos # 0.05 K/uL 0.0-0.5 33 Baso # 0.12 K/uL High 0.0-0.1 33 Differential-WBC Confirm 03/03/2018 Total Cells Counted 100 #CELLS 34 Band% 1 % 0-8 34 Neutrophils% 71 % 33-73 34 Lymph% 15 % Low 20-42 34 Monocyte% 11 % High 0-10 34 Eosinophil% 1 % 0-5 34 Basophil% 1 % 0-2 34 Platelet Estimate NORMAL 34 Anisocytosis 0-1+ 34 Macrocytosis 2+ 34 Comprehensive Metabolic Panel 03/03/2018 Glucose 108 mg/dL High 74-106 34 BUN 15 mg/dL 7-18 34 Creatinine 1.6 mg/dL High 0.6-1.3 34 Glom Filtration Rate, Estimate 48 mL/min >60 34 If 58 mL/min >60 34, 35 BUN/Creat 9.3 ratio 34 Sodium 142 mmol/L 136-145 34 Potassium 4.4 mmol/L 3.5-5.1 34 Chloride 108 mmol/L High 98-107 34 Carbon Dioxide 28 mmol/L 21-32 34 Anion Gap 6 mEq/L Low 8-16 34 Calcium 8.9 mg/dL 8.5-10.1 34 Total Protein 7.2 g/dL 6.4-8.2 34 Albumin 3.1 g/dL Low 3.4-5.0 34 Globulin 4.1 g/dL 1.9-4.3 34 Alb/Glob 0.8 ratio 34 Bilirubin,Total 0.1 mg/dL Low 0.2-1.0 34 Sgot/Ast 12 U/L Low 15-37 34, 36 SGPT/Alt 13 U/L 12-78 34 Alkaline Phosphatase 136 U/L High 45-117 34 Laboratory test finding 03/03/2018 Path Review: <pending> 34 CBS W/Automated Diff 03/03/2018 White Blood Count 5.6 K/uL 3.4-10.5 34 Red Blood Count 3.16 M/uL Low 4.20-5.80 34 Hemoglobin 11.7 gm/dL Low 12.8-17.0 34 Hematocrit 35.3 % Low 38.0-48.0 34 Mean Cell Volume 111.7 fl High 80.0-96.0 34 Mean Corpuscular HGB 37.0 pg High 27.0-33.0 34 Mean Corpuscular HGB Conc 33.1 g/dL 31.7-36.0 34 Platelet Count 266 K/uL 155-360 34 Red Cell Distri Width SD 57.1 fl High 36-51 34 Red Cell Distri Width %CV 14.5 % 11.6-15.8 34 Mean Platelet Volume 10.3 fL 6.6-10.6 34 Neut% 70.5 % 33.0-73.0 34 Lymph % 12.7 % Low 20.0-42.0 34 [place] % 14.5 % High 0.0-10.0 34 Eo% 1.8 % 0.0-6.6 34 Bas% 0.5 % 0.0-1.1 34 Neut# 3.93 K/uL 1.8-7.0 34 Lymph # 0.71 K/uL Low 1.0-4.0 34 [place] # 0.81 K/uL High 0.0-0.8 34 Eos # 0.10 K/uL 0.0-0.5 34 Baso # 0.03 K/uL 0.0-0.1 34 Slide Review 03/03/2018 Slide Review DIFF ORDERED 34 Laboratory test finding 03/03/2018 Magnesium 1.6 mg/dL Low 1.8-2.4 34 Basic Metabolic Panel 02/27/2018 Glucose 106 mg/dL 74-106 37 BUN 19 mg/dL High 7-18 37 Creatinine 1.7 mg/dL High 0.6-1.3 37 Glom Filtration Rate, Estimate 45 mL/min >60 37 If 54 mL/min >60 37, 38 BUN/Creat 11.1 ratio 37 Sodium 144 mmol/L 136-145 37 Potassium 4.7 mmol/L 3.5-5.1 37 Chloride 111 mmol/L High 98-107 37 Carbon Dioxide 27 mmol/L 21-32 37 Anion Gap 6 mEq/L Low 8-16 37 Calcium 8.8 mg/dL 8.5-10.1 37 Laboratory test finding 02/27/2018 Magnesium 1.6 mg/dL Low 1.8-2.4 37, 39 Differential-WBC Confirm 02/24/2018 Total Cells Counted 100 #CELLS 40 Band% 12 % High 0-8 40 Neutrophils% 62 % 33-73 40 Lymph% 12 % Low 20-42 40 Monocyte% 11 % High 0-10 40 Eosinophil% 3 % 0-5 40 Platelet Estimate NORMAL 40 Anisocytosis 1+ 40 Macrocytosis 2+ 40 Toxic Granulation 2+ 40 Path Review: 02/24/2018 Path Review: INDICATED,SLIDE <SEE 40, 41 NOTE> CBS W/Automated 02/24/2018 White Blood 6.6 K/uL 3.4-10.5 40 Diff Count Red Blood Count 3.09 M/uL Low 4.20-5.80 40 Hemoglobin 11.5 gm/dL Low 12.8-17.0 40 Hematocrit 34.2 % Low 38.0-48.0 40 Mean Cell Volume 110.7 fl High 80.0-96.0 40 Mean Corpuscular HGB 37.2 pg High 27.0-33.0 40 Mean Corpuscular HGB Conc 33.6 g/dL 31.7-36.0 40 Platelet Count 143 K/uL Low 155-360 40 Red Cell Distri Width SD 58.8 fl High 36-51 40 Red Cell Distri Width %CV 15.0 % 11.6-15.8 40 Mean Platelet Volume 11.7 fL High 6.6-10.6 40 Neut% 69.0 % 33.0-73.0 40 Lymph % 14.3 % Low 20.0-42.0 40 [place] % 14.9 % High 0.0-10.0 40 Eo% 1.5 % 0.0-6.6 40 Bas% 0.3 % 0.0-1.1 40 Neut# 4.54 K/uL 1.8-7.0 40 Lymph # 0.94 K/uL Low 1.0-4.0 40 [place] # 0.98 K/uL High 0.0-0.8 40 Eos # 0.10 K/uL 0.0-0.5 40 Baso # 0.02 K/uL 0.0-0.1 40 Comprehensive Metabolic Panel 02/24/2018 Glucose 106 mg/dL 74-106 40 BUN 17 mg/dL 7-18 40 Creatinine 1.7 mg/dL High 0.6-1.3 40 Glom Filtration Rate, Estimate 45 mL/min >60 40 If 54 mL/min >60 40, 42 BUN/Creat 10.0 ratio 40 Sodium 143 mmol/L 136-145 40 Potassium 4.7 mmol/L 3.5-5.1 40 Chloride 108 mmol/L High 98-107 40 Carbon Dioxide 28 mmol/L 21-32 40 Anion Gap 7 mEq/L Low 8-16 40 Calcium 8.6 mg/dL 8.5-10.1 40 Total Protein 7.1 g/dL 6.4-8.2 40 Albumin 3.3 g/dL Low 3.4-5.0 40 Globulin 3.8 g/dL 1.9-4.3 40 Alb/Glob 0.9 ratio 40 Bilirubin,Total 0.2 mg/dL 0.2-1.0 40 Sgot/Ast 12 U/L Low 15-37 40, 43 SGPT/Alt 14 U/L 12-78 40 Alkaline Phosphatase 168 U/L High 45-117 40 Laboratory test finding 02/24/2018 Magnesium 1.5 mg/dL Low 1.8-2.4 40 Slide Review 02/24/2018 Slide Review DIFF ORDERED 40 Comprehensive Metabolic Panel 02/19/2018 Glucose 102 mg/dL 74-106 44 BUN 15 mg/dL 7-18 44 Creatinine 1.4 mg/dL High 0.6-1.3 44 Glom Filtration Rate, Estimate 56 mL/min >60 44 If >60 mL/min >60 44, 45 BUN/Creat 10.7 ratio 44 Sodium 143 mmol/L 136-145 44 Potassium 4.7 mmol/L 3.5-5.1 44 Chloride 109 mmol/L High 98-107 44 Carbon Dioxide 28 mmol/L 21-32 44 Anion Gap 6 mEq/L Low 8-16 44 Calcium 8.5 mg/dL 8.5-10.1 44 Total Protein 6.8 g/dL 6.4-8.2 44 Albumin 3.0 g/dL Low 3.4-5.0 44 Globulin 3.8 g/dL 1.9-4.3 44 Alb/Glob 0.8 ratio 44 Bilirubin,Total 0.2 mg/dL 0.2-1.0 44 Sgot/Ast 10 U/L Low 15-37 44, 46 SGPT/Alt 13 U/L 12-78 44 Alkaline Phosphatase 208 U/L High 45-117 44 Basic Metabolic Panel 02/18/2018 Glucose 108 mg/dL High 74-106 47 BUN 17 mg/dL 7-18 47 Creatinine 1.6 mg/dL High 0.6-1.3 47 Glom Filtration Rate, Estimate 48 mL/min >60 47 If 58 mL/min >60 47, 48 BUN/Creat 10.6 ratio 47 Sodium 143 mmol/L 136-145 47 Potassium 4.8 mmol/L 3.5-5.1 47 Chloride 107 mmol/L 98-107 47 Carbon Dioxide 31 mmol/L 21-32 47 Anion Gap 5 mEq/L Low 8-16 47 Calcium 8.6 mg/dL 8.5-10.1 47 Laboratory test finding 02/18/2018 Magnesium 1.7 mg/dL Low 1.8-2.4 47 Basic Metabolic Panel 02/17/2018 Glucose 115 mg/dL High 74-106 49 BUN 21 mg/dL High 7-18 49 Creatinine 1.7 mg/dL High 0.6-1.3 49 Glom Filtration Rate, Estimate 45 mL/min >60 49 If 54 mL/min >60 49, 50 BUN/Creat 12.3 ratio 49 Sodium 143 mmol/L 136-145 49 Potassium 4.4 mmol/L 3.5-5.1 49 Chloride 107 mmol/L 98-107 49 Carbon Dioxide 28 mmol/L 21-32 49 Anion Gap 8 mEq/L 8-16 49 Calcium 8.3 mg/dL Low 8.5-10.1 49 Laboratory test finding 02/17/2018 Magnesium 1.4 mg/dL Low 1.8-2.4 49 Basic Metabolic Panel 02/14/2018 Glucose 86 mg/dL 74-106 51 BUN 19 mg/dL High 7-18 51 Creatinine 1.5 mg/dL High 0.6-1.3 51 Glom Filtration Rate, Estimate 52 mL/min >60 51 If >60 mL/min >60 51, 52 BUN/Creat 12.6 ratio 51 Sodium 142 mmol/L 136-145 51 Potassium 4.4 mmol/L 3.5-5.1 51 Chloride 106 mmol/L 98-107 51 Carbon Dioxide 28 mmol/L 21-32 51 Anion Gap 8 mEq/L 8-16 51 Calcium 8.7 mg/dL 8.5-10.1 51 Laboratory test finding 02/14/2018 Magnesium 1.6 mg/dL Low 1.8-2.4 51 Basic Metabolic Panel 02/13/2018 Glucose 85 mg/dL 74-106 53 BUN 23 mg/dL High 7-18 53 Creatinine 1.6 mg/dL High 0.6-1.3 53 Glom Filtration Rate, Estimate 48 mL/min >60 53 If 58 mL/min >60 53, 54 BUN/Creat 14.3 ratio 53 Sodium 142 mmol/L 136-145 53 Potassium 4.4 mmol/L 3.5-5.1 53 Chloride 107 mmol/L 98-107 53 Carbon Dioxide 26 mmol/L 21-32 53 Anion Gap 9 mEq/L 8-16 53 Calcium 8.5 mg/dL 8.5-10.1 53 Laboratory test finding 02/13/2018 Magnesium 1.4 mg/dL Low 1.8-2.4 53 CBS W/Automated Diff 02/10/2018 White Blood Count 5.7 K/uL 3.4-10.5 55 Red Blood Count 3.37 M/uL Low 4.20-5.80 55 Hemoglobin 12.2 gm/dL Low 12.8-17.0 55 Hematocrit 36.9 % Low 38.0-48.0 55 Mean Cell Volume 109.5 fl High 80.0-96.0 55 Mean Corpuscular HGB 36.2 pg High 27.0-33.0 55 Mean Corpuscular HGB Conc 33.1 g/dL 31.7-36.0 55 Platelet Count 327 K/uL 155-360 55 Red Cell Distri Width SD 64.0 fl High 36-51 55 Red Cell Distri Width %CV 16.3 % High 11.6-15.8 55 Mean Platelet Volume 9.7 fL 6.6-10.6 55 Neut% 68.4 % 33.0-73.0 55 Lymph % 14.2 % Low 20.0-42.0 55 [place] % 14.7 % High 0.0-10.0 55 Eo% 1.6 % 0.0-6.6 55 Bas% 1.1 % 0.0-1.1 55 Neut# 3.87 K/uL 1.8-7.0 55 Lymph # 0.80 K/uL Low 1.0-4.0 55 [place] # 0.83 K/uL High 0.0-0.8 55 Eos # 0.09 K/uL 0.0-0.5 55 Baso # 0.06 K/uL 0.0-0.1 55 Comprehensive Metabolic Panel 02/10/2018 Glucose 88 mg/dL 74-106 55 BUN 21 mg/dL High 7-18 55 Creatinine 1.4 mg/dL High 0.6-1.3 55 Glom Filtration Rate, Estimate 56 mL/min >60 55 If >60 mL/min >60 55, 56 BUN/Creat 15.0 ratio 55 Sodium 143 mmol/L 136-145 55 Potassium 4.4 mmol/L 3.5-5.1 55 Chloride 110 mmol/L High 98-107 55 Carbon Dioxide 28 mmol/L 21-32 55 Anion Gap 5 mEq/L Low 8-16 55 Calcium 8.6 mg/dL 8.5-10.1 55 Total Protein 7.3 g/dL 6.4-8.2 55 Albumin 3.1 g/dL Low 3.4-5.0 55 Globulin 4.2 g/dL 1.9-4.3 55 Alb/Glob 0.7 ratio 55 Bilirubin,Total 0.1 mg/dL Low 0.2-1.0 55 Sgot/Ast 10 U/L Low 15-37 55, 57 SGPT/Alt 11 U/L Low 12-78 55, 58 Alkaline Phosphatase 141 U/L High 45-117 55 Laboratory test finding 02/10/2018 Magnesium 1.6 mg/dL Low 1.8-2.4 55 Slide Review . 55, 59 Xray 01/20/2018 PET Scan <pending> CBS W/Automated Diff 01/20/2018 White Blood Count 5.3 K/uL 3.4-10.5 60 Red Blood Count 3.22 M/uL Low 4.20-5.80 60 Hemoglobin 11.6 gm/dL Low 12.8-17.0 60 Hematocrit 34.3 % Low 38.0-48.0 60 Mean Cell Volume 106.5 fl High 80.0-96.0 60 Mean Corpuscular HGB 36.0 pg High 27.0-33.0 60 Mean Corpuscular HGB Conc 33.8 g/dL 31.7-36.0 60 Platelet Count 223 K/uL 155-360 60 Red Cell Distri Width SD 67.1 fl High 36-51 60 Red Cell Distri Width %CV 17.2 % High 11.6-15.8 60 Mean Platelet Volume 10.4 fL 6.6-10.6 60 Neut% 68.7 % 33.0-73.0 60 Lymph % 11.6 % Low 20.0-42.0 60 [place] % 17.8 % High 0.0-10.0 60 Eo% 1.3 % 0.0-6.6 60 Bas% 0.6 % 0.0-1.1 60 Neut# 3.62 K/uL 1.8-7.0 60 Lymph # 0.61 K/uL Low 1.0-4.0 60 [place] # 0.94 K/uL High 0.0-0.8 60 Eos # 0.07 K/uL 0.0-0.5 60 Baso # 0.03 K/uL 0.0-0.1 60 Comprehensive Metabolic Panel 01/20/2018 Glucose 68 mg/dL Low 74-106 60 BUN 18 mg/dL 7-18 60 Creatinine 1.3 mg/dL 0.6-1.3 60 Glom Filtration Rate, Estimate >60 mL/min >60 60 If >60 mL/min >60 60, 61 BUN/Creat 13.8 ratio 60 Sodium 142 mmol/L 136-145 60 Potassium 4.4 mmol/L 3.5-5.1 60 Chloride 108 mmol/L High 98-107 60 Carbon Dioxide 28 mmol/L 21-32 60 Anion Gap 6 mEq/L Low 8-16 60 Calcium 8.3 mg/dL Low 8.5-10.1 60 Total Protein 6.8 g/dL 6.4-8.2 60 Albumin 3.2 g/dL Low 3.4-5.0 60 Globulin 3.6 g/dL 1.9-4.3 60 Alb/Glob 0.9 ratio 60 Bilirubin,Total 0.3 mg/dL 0.2-1.0 60 Sgot/Ast 15 U/L 15-37 60 SGPT/Alt 16 U/L 12-78 60 Alkaline Phosphatase 121 U/L High 45-117 60 Laboratory test finding 01/20/2018 Magnesium 1.8 mg/dL 1.8-2.4 60, 62 Laboratory test finding 01/15/2018 Point of Care Glucose 87 mg/dL 70-100 63 CBS W/Automated Diff 12/30/2017 White Blood Count 8.0 K/uL 3.4-10.5 64 Red Blood Count 3.61 M/uL Low 4.20-5.80 64 Hemoglobin 12.5 gm/dL Low 12.8-17.0 64 Hematocrit 37.9 % Low 38.0-48.0 64 Mean Cell Volume 105.0 fl High 80.0-96.0 64 Mean Corpuscular HGB 34.6 pg High 27.0-33.0 64 Mean Corpuscular HGB Conc 33.0 g/dL 31.7-36.0 64 Platelet Count 314 K/uL 155-360 64 Red Cell Distri Width SD 62.3 fl High 36-51 64 Red Cell Distri Width %CV 16.7 % High 11.6-15.8 64 Mean Platelet Volume 10.1 fL 6.6-10.6 64 Neut% 73.9 % High 33.0-73.0 64 Lymph % 12.4 % Low 20.0-42.0 64 [place] % 11.6 % High 0.0-10.0 64 Eo% 1.5 % 0.0-6.6 64 Bas% 0.6 % 0.0-1.1 64 Neut# 5.92 K/uL 1.8-7.0 64 Lymph # 0.99 K/uL Low 1.0-4.0 64 [place] # 0.93 K/uL High 0.0-0.8 64 Eos # 0.12 K/uL 0.0-0.5 64 Baso # 0.05 K/uL 0.0-0.1 64 Comprehensive Metabolic Panel 12/30/2017 Glucose 117 mg/dL High 74-106 64 BUN 21 mg/dL High 7-18 64 Creatinine 1.3 mg/dL 0.6-1.3 64 Glom Filtration Rate, Estimate >60 mL/min >60 64 If >60 mL/min >60 64, 65 BUN/Creat 16.1 ratio 64 Sodium 141 mmol/L 136-145 64 Potassium 3.8 mmol/L 3.5-5.1 64 Chloride 107 mmol/L 98-107 64 Carbon Dioxide 26 mmol/L 21-32 64 Anion Gap 8 mEq/L 8-16 64 Calcium 8.6 mg/dL 8.5-10.1 64 Total Protein 7.1 g/dL 6.4-8.2 64 Albumin 3.2 g/dL Low 3.4-5.0 64 Globulin 3.9 g/dL 1.9-4.3 64 Alb/Glob 0.8 ratio 64 Bilirubin,Total 0.3 mg/dL 0.2-1.0 64 Sgot/Ast 11 U/L Low 15-37 64, 66 SGPT/Alt 13 U/L 12-78 64 Alkaline Phosphatase 132 U/L High 45-117 64 Laboratory test finding 12/30/2017 Magnesium 1.7 mg/dL Low 1.8-2.4 64 Slide Review DIFF ORDERED 64 Differential-WBC Confirm 12/30/2017 Total Cells Counted 100 #CELLS 64 Neutrophils% 77 % High 33-73 64 Lymph% 13 % Low 20-42 64 Atypical Lymph% 2 % 0-7 64 Monocyte% 7 % 0-10 64 Eosinophil% 1 % 0-5 64 Platelet Estimate NORMAL 64 RBC Morphology NORMAL 64 Differential Comment FEW PLATELET CLU <SEE NOTE> 64, 67 CBS W/Automated Diff 12/09/2017 White Blood Count 9.0 K/uL 3.4-10.5 68 Red Blood Count 3.96 M/uL Low 4.20-5.80 68 Hemoglobin 13.6 gm/dL 12.8-17.0 68 Hematocrit 40.6 % 38.0-48.0 68 Mean Cell Volume 102.5 fl High 80.0-96.0 68 Mean Corpuscular HGB 34.3 pg High 27.0-33.0 68 Mean Corpuscular HGB Conc 33.5 g/dL 31.7-36.0 68 Platelet Count 361 K/uL High 155-360 68 Red Cell Distri Width SD 55.3 fl High 36-51 68 Red Cell Distri Width %CV 15.2 % 11.6-15.8 68 Mean Platelet Volume 10.1 fL 6.6-10.6 68 Neut% 77.3 % High 33.0-73.0 68 Lymph % 9.8 % Low 20.0-42.0 68 [place] % 11.1 % High 0.0-10.0 68 Eo% 1.4 % 0.0-6.6 68 Bas% 0.4 % 0.0-1.1 68 Neut# 6.94 K/uL 1.8-7.0 68 Lymph # 0.88 K/uL Low 1.0-4.0 68 [place] # 1.00 K/uL High 0.0-0.8 68 Eos # 0.13 K/uL 0.0-0.5 68 Baso # 0.04 K/uL 0.0-0.1 68 Comprehensive Metabolic Panel 12/09/2017 Glucose 93 mg/dL 74-106 68 BUN 15 mg/dL 7-18 68 Creatinine 1.2 mg/dL 0.6-1.3 68 Glom Filtration Rate, Estimate >60 mL/min >60 68 If >60 mL/min >60 68, 69 BUN/Creat 12.5 ratio 68 Sodium 141 mmol/L 136-145 68 Potassium 4.0 mmol/L 3.5-5.1 68 Chloride 106 mmol/L 98-107 68 Carbon Dioxide 29 mmol/L 21-32 68 Anion Gap 6 mEq/L Low 8-16 68 Calcium 8.7 mg/dL 8.5-10.1 68 Total Protein 7.2 g/dL 6.4-8.2 68 Albumin 3.0 g/dL Low 3.4-5.0 68 Globulin 4.2 g/dL 1.9-4.3 68 Alb/Glob 0.7 ratio 68 Bilirubin,Total 0.2 mg/dL 0.2-1.0 68 Sgot/Ast 12 U/L Low 15-37 68, 70 SGPT/Alt 11 U/L Low 12-78 68, 71 Alkaline Phosphatase 131 U/L High 45-117 68 Laboratory test finding 12/09/2017 Magnesium 2.0 mg/dL 1.8-2.4 68 Slide Review (SEE NOTE) 68, 72 Xray 11/28/2017 CT, Chest, With Contrast Materials <pending> CT, Abdomen & Pelvis W Contrast <pending> CBS W/Automated Diff 11/25/2017 White Blood Count 18.3 K/uL High 3.4-10.5 73 Red Blood Count 4.13 M/uL Low 4.20-5.80 73 Hemoglobin 13.7 gm/dL 12.8-17.0 73 Hematocrit 41.9 % 38.0-48.0 73 Mean Cell Volume 101.5 fl High 80.0-96.0 73 Mean Corpuscular HGB 33.2 pg High 27.0-33.0 73 Mean Corpuscular HGB Conc 32.7 g/dL 31.7-36.0 73 Platelet Count 275 K/uL 155-360 73 Red Cell Distri Width SD 50.2 fl 36-51 73 Red Cell Distri Width %CV 14.1 % 11.6-15.8 73 Mean Platelet Volume 11.4 fL High 6.6-10.6 73 Neut% 84.3 % High 33.0-73.0 73 Lymph % 4.3 % Low 20.0-42.0 73 [place] % 10.6 % High 0.0-10.0 73 Eo% 0.5 % 0.0-6.6 73 Bas% 0.3 % 0.0-1.1 73 Neut# 15.42 K/uL High 1.8-7.0 73 Lymph # 0.79 K/uL Low 1.0-4.0 73 [place] # 1.95 K/uL High 0.0-0.8 73 Eos # 0.10 K/uL 0.0-0.5 73 Baso # 0.05 K/uL 0.0-0.1 73 Comprehensive Metabolic Panel 11/25/2017 Glucose 88 mg/dL 74-106 73 BUN 11 mg/dL 7-18 73 Creatinine 1.2 mg/dL 0.6-1.3 73 Glom Filtration Rate, Estimate >60 mL/min >60 73 If >60 mL/min >60 73, 74 BUN/Creat 9.1 ratio 73 Sodium 140 mmol/L 136-145 73 Potassium 4.1 mmol/L 3.5-5.1 73 Chloride 100 mmol/L 98-107 73 Carbon Dioxide 30 mmol/L 21-32 73 Anion Gap 10 mEq/L 8-16 73 Calcium 8.6 mg/dL 8.5-10.1 73 Total Protein 7.4 g/dL 6.4-8.2 73 Albumin 3.1 g/dL Low 3.4-5.0 73 Globulin 4.3 g/dL 1.9-4.3 73 Alb/Glob 0.7 ratio 73 Bilirubin,Total 0.3 mg/dL 0.2-1.0 73 Sgot/Ast 16 U/L 15-37 73 SGPT/Alt 20 U/L 12-78 73 Alkaline Phosphatase 234 U/L High 45-117 73 Slide Review 11/25/2017 Slide Review DIFF ORDERED 73 Differential-WBC Confirm 11/25/2017 Total Cells Counted 100 #CELLS 73 Band% 6 % 0-8 73 Neutrophils% 78 % High 33-73 73 Lymph% 5 % Low 20-42 73 Monocyte% 9 % 0-10 73 Eosinophil% 2 % 0-5 73 Platelet Estimate NORMAL 73 Macrocytosis 0-1+ 73 Dohle Bodies 0-1+ 73 CBS W/Automated Diff 11/18/2017 White Blood Count 7.1 K/uL 3.4-10.5 75 Red Blood Count 4.23 M/uL 4.20-5.80 75 Hemoglobin 13.9 gm/dL 12.8-17.0 75 Hematocrit 42.3 % 38.0-48.0 75 Mean Cell Volume 100.0 fl High 80.0-96.0 75 Mean Corpuscular HGB 32.9 pg 27.0-33.0 75 Mean Corpuscular HGB Conc 32.9 g/dL 31.7-36.0 75 Platelet Count 427 K/uL High 155-360 75 Red Cell Distri Width SD 47.3 fl 36-51 75 Red Cell Distri Width %CV 13.6 % 11.6-15.8 75 Mean Platelet Volume 9.7 fL 6.6-10.6 75 Neut% 75.3 % High 33.0-73.0 75 Lymph % 11.2 % Low 20.0-42.0 75 [place] % 12.0 % High 0.0-10.0 75 Eo% 0.7 % 0.0-6.6 75 Bas% 0.8 % 0.0-1.1 75 Neut# 5.33 K/uL 1.8-7.0 75 Lymph # 0.79 K/uL Low 1.0-4.0 75 [place] # 0.85 K/uL High 0.0-0.8 75 Eos # 0.05 K/uL 0.0-0.5 75 Baso # 0.06 K/uL 0.0-0.1 75 Comprehensive Metabolic Panel 11/18/2017 Glucose 83 mg/dL 74-106 75 BUN 13 mg/dL 7-18 75 Creatinine 1.0 mg/dL 0.6-1.3 75 Glom Filtration Rate, Estimate >60 mL/min >60 75 If >60 mL/min >60 75, 76 BUN/Creat 13.0 ratio 75 Sodium 141 mmol/L 136-145 75 Potassium 4.5 mmol/L 3.5-5.1 75 Chloride 108 mmol/L High 98-107 75 Carbon Dioxide 27 mmol/L 21-32 75 Anion Gap 6 mEq/L Low 8-16 75 Calcium 8.8 mg/dL 8.5-10.1 75 Total Protein 7.1 g/dL 6.4-8.2 75 Albumin 2.7 g/dL Low 3.4-5.0 75 Globulin 4.4 g/dL High 1.9-4.3 75 Alb/Glob 0.6 ratio 75 Bilirubin,Total 0.2 mg/dL 0.2-1.0 75 Sgot/Ast 15 U/L 15-37 75 SGPT/Alt 14 U/L 12-78 75 Alkaline Phosphatase 133 U/L High 45-117 75 Laboratory test finding 11/18/2017 Magnesium 1.7 mg/dL Low 1.8-2.4 75 Slide Review (SEE NOTE) 75, 77 CBS W/Automated Diff 10/30/2017 White Blood Count 14.8 K/uL High 3.4-10.5 78 Red Blood Count 4.69 M/uL 4.20-5.80 78 Hemoglobin 15.5 gm/dL 12.8-17.0 78 Hematocrit 45.3 % 38.0-48.0 78 Mean Cell Volume 96.6 fl High 80.0-96.0 78 Mean Corpuscular HGB 33.0 pg 27.0-33.0 78 Mean Corpuscular HGB Conc 34.2 g/dL 31.7-36.0 78 Platelet Count 276 K/uL 155-360 78 Red Cell Distri Width SD 43.0 fl 36-51 78 Red Cell Distri Width %CV 12.4 % 11.6-15.8 78 Mean Platelet Volume 10.8 fL High 6.6-10.6 78 Neut% 84.3 % High 33.0-73.0 78 Lymph % 5.4 % Low 20.0-42.0 78 [place] % 9.3 % 0.0-10.0 78 Eo% 0.8 % 0.0-6.6 78 Bas% 0.2 % 0.0-1.1 78 Neut# 12.49 K/uL High 1.8-7.0 78 Lymph # 0.80 K/uL Low 1.0-4.0 78 [place] # 1.38 K/uL High 0.0-0.8 78 Eos # 0.12 K/uL 0.0-0.5 78 Baso # 0.03 K/uL 0.0-0.1 78 Comprehensive Metabolic Panel 10/30/2017 Glucose 105 mg/dL 74-106 78 BUN 13 mg/dL 7-18 78 Creatinine 1.0 mg/dL 0.6-1.3 78 Glom Filtration Rate, Estimate >60 mL/min >60 78 If >60 mL/min >60 78, 79 BUN/Creat 13.0 ratio 78 Sodium 135 mmol/L Low 136-145 78 Potassium 3.6 mmol/L 3.5-5.1 78 Chloride 101 mmol/L 98-107 78 Carbon Dioxide 27 mmol/L 21-32 78 Anion Gap 7 mEq/L Low 8-16 78 Calcium 9.1 mg/dL 8.5-10.1 78 Total Protein 7.3 g/dL 6.4-8.2 78 Albumin 3.0 g/dL Low 3.4-5.0 78 Globulin 4.3 g/dL 1.9-4.3 78 Alb/Glob 0.7 ratio 78 Bilirubin,Total 0.5 mg/dL 0.2-1.0 78 Sgot/Ast 17 U/L 15-37 78 SGPT/Alt 37 U/L 12-78 78 Alkaline Phosphatase 203 U/L High 45-117 78 Slide Review 10/30/2017 Slide Review DIFF ORDERED 78 Differential-WBC Confirm 10/30/2017 Total Cells Counted 100 #CELLS 78 Band% 15 % High 0-8 78 Neutrophils% 67 % 33-73 78 Lymph% 5 % Low 20-42 78 Atypical Lymph% 2 % 0-7 78 Monocyte% 10 % 0-10 78 Eosinophil% 1 % 0-5 78 Platelet Estimate NORMAL 78 RBC Morphology NORMAL 78 Differential Comment LARGE PLATELETS <SEE NOTE> 78, 80 CBS W/Automated Diff 10/25/2017 White Blood Count 6.9 K/uL 3.4-10.5 81 Red Blood Count 4.54 M/uL 4.20-5.80 81 Hemoglobin 15.2 gm/dL 12.8-17.0 81 Hematocrit 44.8 % 38.0-48.0 81 Mean Cell Volume 98.7 fl High 80.0-96.0 81 Mean Corpuscular HGB 33.5 pg High 27.0-33.0 81 Mean Corpuscular HGB Conc 33.9 g/dL 31.7-36.0 81 Platelet Count 374 K/uL High 155-360 81 Red Cell Distri Width SD 44.7 fl 36-51 81 Red Cell Distri Width %CV 12.5 % 11.6-15.8 81 Mean Platelet Volume 9.6 fL 6.6-10.6 81 Neut% 72.9 % 33.0-73.0 81 Lymph % 10.8 % Low 20.0-42.0 81 [place] % 12.4 % High 0.0-10.0 81 Eo% 3.2 % 0.0-6.6 81 Bas% 0.7 % 0.0-1.1 81 Neut# 5.06 K/uL 1.8-7.0 81 Lymph # 0.75 K/uL Low 1.0-4.0 81 [place] # 0.86 K/uL High 0.0-0.8 81 Eos # 0.22 K/uL 0.0-0.5 81 Baso # 0.05 K/uL 0.0-0.1 81 Comprehensive Metabolic Panel 10/25/2017 Glucose 92 mg/dL 74-106 81 BUN 8 mg/dL 7-18 81 Creatinine 0.9 mg/dL 0.6-1.3 81 Glom Filtration Rate, Estimate >60 mL/min >60 81 If >60 mL/min >60 81, 82 BUN/Creat 8.8 ratio 81 Sodium 139 mmol/L 136-145 81 Potassium 4.0 mmol/L 3.5-5.1 81 Chloride 104 mmol/L 98-107 81 Carbon Dioxide 28 mmol/L 21-32 81 Anion Gap 7 mEq/L Low 8-16 81 Calcium 8.9 mg/dL 8.5-10.1 81 Total Protein 7.0 g/dL 6.4-8.2 81 Albumin 2.7 g/dL Low 3.4-5.0 81 Globulin 4.3 g/dL 1.9-4.3 81 Alb/Glob 0.6 ratio 81 Bilirubin,Total 0.3 mg/dL 0.2-1.0 81 Sgot/Ast 18 U/L 15-37 81 SGPT/Alt 21 U/L 12-78 81 Alkaline Phosphatase 149 U/L High 45-117 81 Laboratory test finding 10/25/2017 Magnesium 1.8 mg/dL 1.8-2.4 81 Protime 10/15/2017 Protime 12.6 seconds 12.0-14.4 83 Inr 0.9 0.9-1.1 83, 84 Laboratory test finding 10/03/2017 Point of Care Glucose 97 mg/dL 70-100 85 CBC 10/02/2017 White Blood Count 4.8 K/uL 3.4-10.5 86 Red Blood Count 4.34 M/uL 4.20-5.80 86 Hemoglobin 14.4 gm/dL 12.8-17.0 86 Hematocrit 43.7 % 38.0-48.0 86 Mean Cell Volume 100.7 fl High 80.0-96.0 86 Mean Corpuscular HGB 33.2 pg High 27.0-33.0 86 Mean Corpuscular HGB Conc 33.0 g/dL 31.7-36.0 86 Platelet Count 231 K/uL 155-360 86 Red Cell Distri Width %CV 13.0 % 11.6-15.8 86 Mean Platelet Volume 10.4 fL 6.6-10.6 86 Liver Function Tests 10/02/2017 Total Protein 6.8 g/dL 6.4-8.2 86 Albumin 2.6 g/dL Low 3.4-5.0 86 Globulin 4.2 g/dL 1.9-4.3 86 Alb/Glob 0.6 ratio 86 Bilirubin,Total 0.4 mg/dL 0.2-1.0 86 Bilirubin,Direct < 0.1 mg/dL 0.0-0.2 86 Bilirubin,Indirect 0.3 mg/dL 0.0-0.9 86 Sgot/Ast 11 U/L Low 15-37 86, 87 SGPT/Alt 16 U/L 12-78 86 Alkaline Phosphatase 106 U/L 45-117 86 Aot Request 10/02/2017 Aot Request Test(s) added 86, 88 Tests to be added: liver function t <SEE NOTE> 86, 89 Laboratory test finding 10/02/2017 Lipase 97 U/L 56-289 86 Troponin-I < 0.015 ng/mL 86, 90 Comprehensive Metabolic Panel 10/02/2017 Glucose 91 mg/dL 74-106 86 BUN 10 mg/dL 7-18 86 Creatinine 0.8 mg/dL 0.6-1.3 86 Glom Filtration Rate, Estimate >60 mL/min >60 86 If >60 mL/min >60 86, 91 BUN/Creat 12.5 ratio 86 Sodium 141 mmol/L 136-145 86 Potassium 4.0 mmol/L 3.5-5.1 86 Chloride 108 mmol/L High 98-107 86 Carbon Dioxide 29 mmol/L 21-32 86 Anion Gap 4 mEq/L Low 8-16 86 Calcium 8.5 mg/dL 8.5-10.1 86 Aot Request 10/01/2017 Aot Request Test(s) added 86, 92 Tests to be added: LFTS 86 Liver Function Tests 10/01/2017 Total Protein 7.0 g/dL 6.4-8.2 86 Albumin 2.8 g/dL Low 3.4-5.0 86 Globulin 4.2 g/dL 1.9-4.3 86 Alb/Glob 0.7 ratio 86 Bilirubin,Total 0.5 mg/dL 0.2-1.0 86 Bilirubin,Direct 0.1 mg/dL 0.0-0.2 86 Bilirubin,Indirect 0.4 mg/dL 0.0-0.9 86 Sgot/Ast 15 U/L 15-37 86 SGPT/Alt 20 U/L 12-78 86 Alkaline Phosphatase 110 U/L 45-117 86 Basic Metabolic Panel 10/01/2017 Glucose 129 mg/dL High 74-106 86 BUN 13 mg/dL 7-18 86 Creatinine 0.9 mg/dL 0.6-1.3 86 Glom Filtration Rate, Estimate >60 mL/min >60 86 If >60 mL/min >60 86, 93 BUN/Creat 14.4 ratio 86 Sodium 139 mmol/L 136-145 86 Potassium 4.3 mmol/L 3.5-5.1 86 Chloride 106 mmol/L 98-107 86 Carbon Dioxide 25 mmol/L 21-32 86 Anion Gap 8 mEq/L 8-16 86 Calcium 8.8 mg/dL 8.5-10.1 86 CBC 10/01/2017 White Blood Count 7.8 K/uL 3.4-10.5 86 Red Blood Count 4.45 M/uL 4.20-5.80 86 Hemoglobin 14.9 gm/dL 12.8-17.0 86 Hematocrit 44.0 % 38.0-48.0 86 Mean Cell Volume 98.9 fl High 80.0-96.0 86 Mean Corpuscular HGB 33.5 pg High 27.0-33.0 86 Mean Corpuscular HGB Conc 33.9 g/dL 31.7-36.0 86 Platelet Count 305 K/uL 155-360 86 Red Cell Distri Width %CV 12.6 % 11.6-15.8 86 Mean Platelet Volume 11.0 fL High 6.6-10.6 86 Laboratory test 09/30/2017 Troponin-I < 0.015 ng/mL 86, 94 finding Laboratory test 09/12/2017 Adenosine 2.1 U/L 0.0-9.4 95, 96 finding Deaminase,Pleural Pleural FLD Glucose 40 95, 97 Pleural FLD LDH 369 IU 95, 98 Pleural Fluid pH 7.4 Not Estab. 95, 99 Pleural FLD Total Protein 4.5 g/dL 95, 100 Pleural FLD cc/Diff 09/12/2017 Color RED 95 Pleural FLD Appearance BLOODY 95 Pleural FLD WBC 1720 /uL High 0-1000 95 Pleural FLD RBC 01212 /uL High 0-06404 95 Pleural FLD Poly 23 % 0-25 95 Pleural Fluid Lymphs 40 % 95 Pleural Fluid Monocytes 3 % 95 Pleural Fluid Eosinophils 3 % 95 Pleural FLD Other Cell 31 % 95, 101 Pleural FLD Diff Comment . 95, 102 Fluid Culture W/ Gram 09/12/2017 Gram Stain MODERATE WHITE B <SEE 95, 103 Stain NOTE> Gram Stain NO ORGANISMS SEE <SEE NOTE> 95, 104 Gram Stain FEW EPITHELIAL C <SEE NOTE> 95, 105 Fluid Culture NO GROWTH: FINAL <SEE NOTE> 95, 106 Protime 09/12/2017 Protime 12.8 seconds 12.0-14.4 107 Inr 1.0 0.9-1.1 107, 108 Anticoagulant Therapy? NO 107 Act Partial Thrombo 09/12/2017 Act Partial Thrombo 32.3 seconds 23.4- 35.0 107 Time Time Anticoagulant Therapy? NO 107 Blood hemoglobin 08/29/2017 Blood hemoglobin 15.3 12.8-17.0 measurement measurement (mass/volume) (mass/volume) Blood erythrocytes 08/29/2017 Blood erythrocytes 4.59 4.20-5.80 automated count automated count (number/volume) (number/volume) Basophils/leuk NFr Bld 08/29/2017 Basophils/leuk NFr Bld 0.5 0.0-1.1 Auto Auto BUN/Creat SerPl 08/29/2017 BUN/Creat SerPl 8.1 Automated erythrocyte 08/29/2017 Automated erythrocyte 100.7 High 80.0- 96.0 mean corpuscular volume mean corpuscular volume Automated erythrocyte 08/29/2017 Automated erythrocyte 33.1 31.7-36.0 mean corpuscular mean corpuscular hemoglobin hemoglobin concentration measurement (mass/volume) Automated erythrocyte 08/29/2017 Automated erythrocyte 33.3 High 27.0- 33.0 mean corpuscular mean corpuscular hemoglobin hemoglobin (mass per erythrocyte) Automated blood 08/29/2017 Automated blood 10.5 6.6-10.6 platelet mean volume platelet mean volume measurement measurement Automated blood 08/29/2017 Automated blood 271 155-360 platelet count platelet count Automated blood 08/29/2017 Automated blood 0.75 Low 1.0-4.0 lymphocyte count lymphocyte count (number/volume) (number/volume) Automated blood 08/29/2017 Automated blood 46.2 38.0-48.0 hematocrit (volume hematocrit (volume fraction) fraction) Automated blood 08/29/2017 Automated blood 0.09 0.0-0.5 eosinophil count eosinophil count Automated blood 08/29/2017 Automated blood 0.03 0.0-0.1 basophil count basophil count (count/volume) (count/volume) Anion Gap SerPl-sCnc 08/29/2017 Anion Gap SerPl-sCnc 7 Low 8-16 Lymphocytes/leuk NFr 08/29/2017 Lymphocytes/leuk NFr 13.3 Low 20.0-42.0 Bld Auto Bld Auto Monocytes/leuk NFr Bld 08/29/2017 Monocytes/leuk NFr Bld 9.9 0.0-10.0 Auto Auto Neutrophils # Bld Auto 08/29/2017 Neutrophils # Bld Auto 4.23 1.8-7.0 Neutrophils/leuk NFr 08/29/2017 Neutrophils/leuk NFr 74.7 High 33.0-73.0 Bld Auto Bld Auto Potassium SerPl-sCnc 08/29/2017 Potassium SerPl-sCnc 3.8 3.5-5.1 RDW RBC Auto 08/29/2017 RDW RBC Auto 47.4 36-51 RDW RBC Auto-Rto 08/29/2017 RDW RBC Auto-Rto 13.0 11.6-15.8 Serum carbon dioxide 08/29/2017 Serum carbon dioxide 27 21-32 measurement measurement Serum or plasma calcium 08/29/2017 Serum or plasma 8.6 8.5-10.1 measurement calcium measurement (mass/volume) (mass/volume) Serum or plasma 08/29/2017 Serum or plasma 1.1 0.6-1.3 creatinine measurement creatinine measurement (mass/volum (mass/volume) Serum or plasma glucose 08/29/2017 Serum or plasma 161 High 74-106 measurement glucose measurement (mass/volume) (mass/volume) Serum or plasma urea 08/29/2017 Serum or plasma urea 9 7-18 nitrogen measurement nitrogen measurement (mass/vo (mass/volume) Serum sodium 08/29/2017 Serum sodium 138 136-145 measurement measurement WBC # Bld Auto 08/29/2017 WBC # Bld Auto 5.7 3.4-10.5 Eosinophil/leuk NFr Bld 08/29/2017 Eosinophil/leuk NFr 1.6 0.0-6.6 Auto Bld Auto Chloride SerPl-sCnc 08/29/2017 Chloride SerPl-sCnc 104 98-107 Blood monocytes 08/29/2017 Blood monocytes 0.56 0.0-0.8 automated count automated count (number/volume) (number/volume) Aerobic blood culture 08/28/2017 Aerobic blood culture No Growth Anaerobic blood culture 08/28/2017 Anaerobic blood No Growth culture Bacteria identification 08/27/2017 Bacteria No Growth by sterile body fluid identification by cult sterile body fluid culture Cells type percentage 08/27/2017 Cells type percentage 17 Color of Pleural fluid 08/27/2017 Color of Pleural fluid Yellow Manual differential 08/27/2017 Manual differential . comment comment [Interpretation] in Jesse [Interpretation] in Body fluid Narrative Manual pleural fluid 08/27/2017 Manual pleural fluid 54 lymphocytes/100 lymphocytes/100 leukocytes leukocytes Manual pleural fluid 08/27/2017 Manual pleural fluid 29 monocytes/100 monocytes/100 leukocytes leukocytes Pleural fluid 08/27/2017 Pleural fluid Hazy appearance appearance Pleural fluid 08/27/2017 Pleural fluid 2076 High 0-1000 leukocytes count leukocytes count (number/volume) (number/volume) * Miscellaneous studies 08/27/2017 * Miscellaneous Test(s) (set) studies (set) added Alt SerPl-cCnc 08/27/2017 Alt SerPl-cCnc 30 12-78 Albumin/Glob SerPl 08/27/2017 Albumin/Glob SerPl 0.9 Globulin Ser Calc-mCnc 08/27/2017 Globulin Ser Calc-mCnc 4.3 1.9-4.3 Serum or plasma albumin 08/27/2017 Serum or plasma 3.7 3.4-5.0 measurement albumin measurement (mass/volume) (mass/volume) Serum or plasma 08/27/2017 Serum or plasma 112 45-117 alkaline phosphatase alkaline phosphatase measurement ( measurement (enzymatic activity/volume) Serum or plasma 08/27/2017 Serum or plasma 19 15-37 aspartate aspartate aminotransferase aminotransferase measure measurement (enzymatic activity/volume) Serum or plasma 08/27/2017 Serum or plasma 98 39-308 creatine kinase creatine kinase measurement (enzym measurement (enzymatic activity/volume) Serum or plasma lactate 08/27/2017 Serum or plasma 149 87-241 dehydrogenase lactate dehydrogenase measurement measurement (enzymatic activity/volume) Serum or plasma 08/27/2017 Serum or plasma 33.0 <125 natriuretic peptide B natriuretic peptide B prohormone N prohormone N-terminal measurement (mass/volume) Serum or plasma protein 08/27/2017 Serum or plasma 8.0 6.4-8.2 measurement protein measurement (mass/volume) (mass/volume) Serum or plasma total 08/27/2017 Serum or plasma total 0.8 0.2-1.0 bilirubin measurement bilirubin measurement (mass/ (mass/volume) Activated partial 08/27/2017 Activated partial 33.8 23.4-35.0 thromboplastin time thromboplastin time (aPTT) in pl (aPTT) in platelet poor plasma by coagulation assay Platelet poor plasma 08/27/2017 Platelet poor plasma 1.0 0.9-1.1 international international normalized rati normalized ratio (Inr) by coagulation assay (relative time) Prothrombin time (PT) 08/27/2017 Prothrombin time (PT) 13.3 12.0-14.4 in platelet poor plasma in platelet poor plasma 1 C45.0 E61.1 J85.1 J90 2 Note: Persistent reduction for 3 months or more in an eGFR <60 mL/min/1.73 m2 defines CKD. Patients with eGFR values >/=60 mL/min/1.73 m2 may also have CKD if evidence of persistent proteinuria is present. The original MDRD equation for estimated GFR is not valid for patients less than 18 years of age. Additional information may be found at [email or web address]. 3 Values below the stated reference ranges of AST and ALT can be seen in normal populations. Clinical correlation is suggested. 4 Values below the stated reference ranges of AST and ALT can be seen in normal populations. Clinical correlation is suggested. 5 FEVER 6 Tests: CRP to admission labs Instructions: 7 CRP to admission labs 8 Note: Persistent reduction for 3 months or more in an eGFR <60 mL/min/1.73 m2 defines CKD. Patients with eGFR values >/=60 mL/min/1.73 m2 may also have CKD if evidence of persistent proteinuria is present. The original MDRD equation for estimated GFR is not valid for patients less than 18 years of age. Additional information may be found at [email or web address]. 9 NO GROWTH: FINAL REPORT 10 NO GROWTH: FINAL REPORT 11 NO GROWTH: FINAL REPORT 12 NO GROWTH: FINAL REPORT 13 D64.9 14 Note: Persistent reduction for 3 months or more in an eGFR <60 mL/min/1.73 m2 defines CKD. Patients with eGFR values >/=60 mL/min/1.73 m2 may also have CKD if evidence of persistent proteinuria is present. The original MDRD equation for estimated GFR is not valid for patients less than 18 years of age. Additional information may be found at [email or web address]. 15 [employer]: [id number] 16 C45.0 J91.0 E86.0 E53.9 Z51.11 17 Note: Persistent reduction for 3 months or more in an eGFR <60 mL/min/1.73 m2 defines CKD. Patients with eGFR values >/=60 mL/min/1.73 m2 may also have CKD if evidence of persistent proteinuria is present. The original MDRD equation for estimated GFR is not valid for patients less than 18 years of age. Additional information may be found at [email or web address]. 18 Note: Persistent reduction for 3 months or more in an eGFR <60 mL/min/1.73 m2 defines CKD. Patients with eGFR values >/=60 mL/min/1.73 m2 may also have CKD if evidence of persistent proteinuria is present. The original MDRD equation for estimated GFR is not valid for patients less than 18 years of age. Additional information may be found at [email or web address]. 19 Values below the stated reference ranges of AST and ALT can be seen in normal populations. Clinical correlation is suggested. 20 Instrument flagged sample for slide review. Less than 10% Bands seen, no other immature WBC's seen. Platelet estimate=NORMAL 21 Z51.11 C45.0 J91.0E86.0 E53.9 22 Note: Persistent reduction for 3 months or more in an eGFR <60 mL/min/1.73 m2 defines CKD. Patients with eGFR values >/=60 mL/min/1.73 m2 may also have CKD if evidence of persistent proteinuria is present. The original MDRD equation for estimated GFR is not valid for patients less than 18 years of age. Additional information may be found at [email or web address]. 23 DRAWN FROM PORT 24 DRAWN FROM PORT 25 Z51.11 C45.0 J91.0 E86.0 E53.9 26 C45.0 E83.42 N17.9 27 Note: Persistent reduction for 3 months or more in an eGFR <60 mL/min/1.73 m2 defines CKD. Patients with eGFR values >/=60 mL/min/1.73 m2 may also have CKD if evidence of persistent proteinuria is present. The original MDRD equation for estimated GFR is not valid for patients less than 18 years of age. Additional information may be found at [email or web address]. 28 Z51.11 C45.0 J91.0 E86.0 E53.9 29 CALLED WBC TO FLORENCIA Silva AT 1020 03/06/18 by [facility].LIONEL 30 C45.0 E83.42 N17.9 31 STAT PER JIM DP CMP VS BMP 32 Note: Persistent reduction for 3 months or more in an eGFR <60 mL/min/1.73 m2 defines CKD. Patients with eGFR values >/=60 mL/min/1.73 m2 may also have CKD if evidence of persistent proteinuria is present. The original MDRD equation for estimated GFR is not valid for patients less than 18 years of age. Additional information may be found at [email or web address]. 33 Z51.11 C45.0 J91.0 E86.0 E53.9 34 C45.0 E86.0 J91.0 Z51.11 E53.9 35 Note: Persistent reduction for 3 months or more in an eGFR <60 mL/min/1.73 m2 defines CKD. Patients with eGFR values >/=60 mL/min/1.73 m2 may also have CKD if evidence of persistent proteinuria is present. The original MDRD equation for estimated GFR is not valid for patients less than 18 years of age. Additional information may be found at [email or web address]. 36 Values below the stated reference ranges of AST and ALT can be seen in normal populations. Clinical correlation is suggested. 37 C45.0 J91.0 Z51.11 E53.9 D64.9 38 Note: Persistent reduction for 3 months or more in an eGFR <60 mL/min/1.73 m2 defines CKD. Patients with eGFR values >/=60 mL/min/1.73 m2 may also have CKD if evidence of persistent proteinuria is present. The original MDRD equation for estimated GFR is not valid for patients less than 18 years of age. Additional information may be found at [email or web address]. 39 STAT JESIKA PEPE [phone] FAX [phone] PORT DRAW 40 C45.0 E86.0 E83.42 Z51.11 R11.0 E53.9 D64.9 41 INDICATED,SLIDE SENT Hematology Consultation Final Report Case# [id number] Review of peripheral blood smear shows very mild macrocytic anemia and mild absolute lymphocytopenia. No Pelgeroid neutrophils are present. No blasts or immature granulocytes are present. Rule out B12/folic acid deficiency. Absolute lymphocytopenia can be seen in corticosteroid therapy, viral infections and congestive heart failure. Gross Description Peripheral blood smear Clinical Data Cytopenias Sy Olivera MD, Pathologist Reported 02/25/2018 at 8:24 PM, Report electronically signed Performed at: [id number] [id number] 03/01/18 1126: PATH REVIEW: previously reported as: INDICATED,SLIDE SENT Amended result called to: Kathy Olson - 03/01/18 at 1126 42 Note: Persistent reduction for 3 months or more in an eGFR <60 mL/min/1.73 m2 defines CKD. Patients with eGFR values >/=60 mL/min/1.73 m2 may also have CKD if evidence of persistent proteinuria is present. The original MDRD equation for estimated GFR is not valid for patients less than 18 years of age. Additional information may be found at [email or web address]. 43 Values below the stated reference ranges of AST and ALT can be seen in normal populations. Clinical correlation is suggested. 44 C45.0 J91.0 E86.0 Z51.11 E53.9 D64.9 45 Note: Persistent reduction for 3 months or more in an eGFR <60 mL/min/1.73 m2 defines CKD. Patients with eGFR values >/=60 mL/min/1.73 m2 may also have CKD if evidence of persistent proteinuria is present. The original MDRD equation for estimated GFR is not valid for patients less than 18 years of age. Additional information may be found at [email or web address]. 46 Values below the stated reference ranges of AST and ALT can be seen in normal populations. Clinical correlation is suggested. 47 C45.0 E86.0 Z51.11 D64.9 48 Note: Persistent reduction for 3 months or more in an eGFR <60 mL/min/1.73 m2 defines CKD. Patients with eGFR values >/=60 mL/min/1.73 m2 may also have CKD if evidence of persistent proteinuria is present. The original MDRD equation for estimated GFR is not valid for patients less than 18 years of age. Additional information may be found at [email or web address]. 49 C45.0 E86.0 Z51.11 E53.9 D64.9 50 Note: Persistent reduction for 3 months or more in an eGFR <60 mL/min/1.73 m2 defines CKD. Patients with eGFR values >/=60 mL/min/1.73 m2 may also have CKD if evidence of persistent proteinuria is present. The original MDRD equation for estimated GFR is not valid for patients less than 18 years of age. Additional information may be found at [email or web address]. 51 C45.0 J91.0 E86.0 Z51.11 E53.9 D64.9 52 Note: Persistent reduction for 3 months or more in an eGFR <60 mL/min/1.73 m2 defines CKD. Patients with eGFR values >/=60 mL/min/1.73 m2 may also have CKD if evidence of persistent proteinuria is present. The original MDRD equation for estimated GFR is not valid for patients less than 18 years of age. Additional information may be found at [email or web address]. 53 C45.0 J91.0 E86.0 Z51.11 R11.0 54 Note: Persistent reduction for 3 months or more in an eGFR <60 mL/min/1.73 m2 defines CKD. Patients with eGFR values >/=60 mL/min/1.73 m2 may also have CKD if evidence of persistent proteinuria is present. The original MDRD equation for estimated GFR is not valid for patients less than 18 years of age. Additional information may be found at [email or web address]. 55 C45.0 J91.0 E86.0 Z51.11 E53.9 D64.9 56 Note: Persistent reduction for 3 months or more in an eGFR <60 mL/min/1.73 m2 defines CKD. Patients with eGFR values >/=60 mL/min/1.73 m2 may also have CKD if evidence of persistent proteinuria is present. The original MDRD equation for estimated GFR is not valid for patients less than 18 years of age. Additional information may be found at [email or web address]. 57 Values below the stated reference ranges of AST and ALT can be seen in normal populations. Clinical correlation is suggested. 58 Values below the stated reference ranges of AST and ALT can be seen in normal populations. Clinical correlation is suggested. 59 Instrument flagged sample for slide review. Less than 10% Bands seen, no other immature WBC's seen. RBC morphology essentially normal. Platelet estimate=NORMAL 60 C45.0 D70.1 J91.0 E53.9 Z51.11 E86.0 61 Note: Persistent reduction for 3 months or more in an eGFR <60 mL/min/1.73 m2 defines CKD. Patients with eGFR values >/=60 mL/min/1.73 m2 may also have CKD if evidence of persistent proteinuria is present. The original MDRD equation for estimated GFR is not valid for patients less than 18 years of age. Additional information may be found at [email or web address]. 62 STAT JESIKA PEPE NP 63 [employer]: [id number] 64 C45.0 D70.1 Z51.11 J91.0 65 Note: Persistent reduction for 3 months or more in an eGFR <60 mL/min/1.73 m2 defines CKD. Patients with eGFR values >/=60 mL/min/1.73 m2 may also have CKD if evidence of persistent proteinuria is present. The original MDRD equation for estimated GFR is not valid for patients less than 18 years of age. Additional information may be found at [email or web address]. 66 Values below the stated reference ranges of AST and ALT can be seen in normal populations. Clinical correlation is suggested. 67 FEW PLATELET CLUMPS 68 C45.0 E53.9 D70.1 E86.0 G89.3 69 Note: Persistent reduction for 3 months or more in an eGFR <60 mL/min/1.73 m2 defines CKD. Patients with eGFR values >/=60 mL/min/1.73 m2 may also have CKD if evidence of persistent proteinuria is present. The original MDRD equation for estimated GFR is not valid for patients less than 18 years of age. Additional information may be found at [email or web address]. 70 Values below the stated reference ranges of AST and ALT can be seen in normal populations. Clinical correlation is suggested. 71 Values below the stated reference ranges of AST and ALT can be seen in normal populations. Clinical correlation is suggested. 72 Instrument flagged sample for slide review. Less than 10% Bands seen, no other immature WBC's seen. RBC morphology essentially normal. Platelet estimate=NORMAL 73 C45.0 74 Note: Persistent reduction for 3 months or more in an eGFR <60 mL/min/1.73 m2 defines CKD. Patients with eGFR values >/=60 mL/min/1.73 m2 may also have CKD if evidence of persistent proteinuria is present. The original MDRD equation for estimated GFR is not valid for patients less than 18 years of age. Additional information may be found at [email or web address]. 75 C45.0 Z51.11 76 Note: Persistent reduction for 3 months or more in an eGFR <60 mL/min/1.73 m2 defines CKD. Patients with eGFR values >/=60 mL/min/1.73 m2 may also have CKD if evidence of persistent proteinuria is present. The original MDRD equation for estimated GFR is not valid for patients less than 18 years of age. Additional information may be found at [email or web address]. 77 Instrument flagged sample for slide review. Less than 10% Bands seen, no other immature WBC's seen. RBC morphology essentially normal. Platelet estimate=SLIGHT INCREASE 78 C45.0 79 Note: Persistent reduction for 3 months or more in an eGFR <60 mL/min/1.73 m2 defines CKD. Patients with eGFR values >/=60 mL/min/1.73 m2 may also have CKD if evidence of persistent proteinuria is present. The original MDRD equation for estimated GFR is not valid for patients less than 18 years of age. Additional information may be found at [email or web address]. 80 LARGE PLATELETS PRESENT. 81 C45.0 Z51.11 D70.01 82 Note: Persistent reduction for 3 months or more in an eGFR <60 mL/min/1.73 m2 defines CKD. Patients with eGFR values >/=60 mL/min/1.73 m2 may also have CKD if evidence of persistent proteinuria is present. The original MDRD equation for estimated GFR is not valid for patients less than 18 years of age. Additional information may be found at [email or web address]. 83 C45.0 84 THERAPEUTIC INR RANGE: 2.0 - 3.0 DVT, Pulmonary embolus, prophylaxis against venous thrombosis or systemic embolization in high risk patients. 2.5 - 3.5 Mechanical heart valves 85 [employer]: [id number] 87 Values below the stated reference ranges of AST and ALT can be seen in normal populations. Clinical correlation is suggested. 88 LIPASE ALREADY ORDERED FOR 0500 MORNING LABS Tests: liver function tests and lipase Instructions: 89 liver function tests and lipase 90 0.0 - 0.045 ng/mL: Normal 0.046 - 0.5 ng/mL: Suggestive 0.6 - 1.5 ng/mL: Consistent 91 Note: Persistent reduction for 3 months or more in an eGFR <60 mL/min/1.73 m2 defines CKD. Patients with eGFR values >/=60 mL/min/1.73 m2 may also have CKD if evidence of persistent proteinuria is present. The original MDRD equation for estimated GFR is not valid for patients less than 18 years of age. Additional information may be found at [email or web address]. 92 Tests: LFTS Instructions: 93 Note: Persistent reduction for 3 months or more in an eGFR <60 mL/min/1.73 m2 defines CKD. Patients with eGFR values >/=60 mL/min/1.73 m2 may also have CKD if evidence of persistent proteinuria is present. The original MDRD equation for estimated GFR is not valid for patients less than 18 years of age. Additional information may be found at www.kdoqi.org. 94 0.0 - 0.045 ng/mL: Normal 0.046 - 0.5 ng/mL: Suggestive 0.6 - 1.5 ng/mL: Consistent 95 J90 96 TEST INFORMATION: Adenosine Deaminase, Pleural Fluid Test developed and characteristics determined by [facility]. See Compliance Statement B: [employer] Performed at: [facility] [address] [id number] [place]: Axel Song MD, Phone: [phone] Performed at: [address] [id number] [place]: Kimberly Palomo MD, Phone: [phone] 97 : Peritoneal : Pleural : Synovial : : : : : : : Transudate : Exudate : : : : : : : : Not Estab. : Equal to simultaneously drawn plasma : : : : The method performance specifications have not been established for this test in body fluid. The test result should be integrated into clinical context for interpretation. The reference intervals and other method performance specifications have not been established for this test. The test result should be integrated into the clinical context for interpretation. Performed at: [address] [id number] [place]: Kimberly Palomo MD, Phone: [phone] 98 : Peritoneal : Pleural : Synovial : CSF : : : : : : : : Transudate: Exudate : : : : : : : : : : : Not Estab. : <200 U/L : >200 U/L : <240 U/L : Not Estab.: : : : : : The method performance specifications have not been established for this test in body fluid. The test result should be integrated into the clinical context for interpretation. The reference intervals and other method performance specifications have not been established for this test. The test result should be integrated into the clinical context for interpretation. 99 This test was developed and its performance characteristics determined by [facility]. It has not been cleared or approved by the Food and Drug Administration. 100 : Peritoneal : Pleural : Synovial : : : : : : Transudate : Exudate : : : : : : : : Not Estab. : <3 g/dL : >3 g/dL : <2.5 g/dL : : : : : The method performance specifications have not been established for this test in body fluid. The test result should be integrated into the clinical context for interpretation. The method performance specifications have not been established for this test in body fluid. The test result should be integrated into the clinical context for interpretation. 101 31% OTHER CELLS CONSISTS OF 5% MACROPHAGES AND 26% MESOTHELIAL CELLS. 102 DIFFERENTIAL CHECKED BY REPEAT COUNT LAB.EMM1 BINUCLEATED MESOTHELIAL CELLS AND LARGE CLUSTERS OF ABNORMAL CELLS PRESENT. Hematology Consultation Final Report Case# [id number] Final Diagnosis Specimen labeled pleural fluid, cytospin: -The specimen shows atypical cells, mesothelial cells, monocytes, lymphocytes, neutrophils and red blood cells. Comment: This case was correlated with cytology case ([id number]) which has a diagnosis of highly suspicious of malignant mesothelioma. GY 10/01/17 Gross Discription: Pleural fluid CORBIN SERRANO MD, Pathologist Reported 10/01/2017 at 9:19 PM, Report electronically signed Performed at: [facility] [place] [id number] 10/02/17 0748: COMMENT: previously reported as: . DIFFERENTIAL CHECKED BY REPEAT COUNT LAB.EMM1 BINUCLEATED MESOTHELIAL CELLS AND LARGE CLUSTERS OF ABNORMAL CELLS PRESENT. Amended result called to: n a - 10/02/17 at 0748 103 MODERATE WHITE BLOOD CELLS 104 NO ORGANISMS SEEN 105 FEW EPITHELIAL CELLS 106 NO GROWTH: FINAL REPORT 107 J90 Z01.812 108 THERAPEUTIC INR RANGE: 2.0 - 3.0 DVT, Pulmonary embolus, prophylaxis against venous thrombosis or systemic embolization in high risk patients. 2.5 - 3.5 Mechanical heart valves Procedures Date CPT Code Description Status 10/18/2017 37820 Theraputic Or Diagnostic Injection Completed 09/30/2017 84385 EKG Interpretation And Report Only Completed 09/30/2017 37450 Insertion Tunneled Cent Venous Cathr W Subcut Port 5 Completed Yrs Or Oldr 09/30/2017 19683 Insert indewelling tunneled pleural catheter with cuff Completed 09/24/2017 20561 EGD With Biopsy Completed Encounters Type Date Location Provider CPT E/M Dx Office Visit 06/24/2018 11:30a [place] [address] E61.1 I26.99 C45.0 J85.1 E86.0 Z79.01 G89.3 R42 Office Visit 06/16/2018 11:00a [place] [address] C45.0 E61.1 J85.1 J90 Office Visit 06/09/2018 10:15a Oncology Office Karpenko, [place] [address] C45.0 E61.1 J85.1 E86.0 F06.31 Office Visit 06/04/2018 1:00p [place] [address] C45.0 J85.1 E61.1 R11.2 G89.3 Office Visit 05/22/2018 2:30p [place] [address] C45.0 J91.0 J85.1 D64.9 G89.3 Office Visit 04/04/2018 8:30a [place] [address] C45.0 D70.1 E53.9 Office Visit 03/31/2018 10:00a Infusion Center Jesika Pepe, SHIPPING ASSOCIATE [address]4879 E86.0 R11.0 J91.0 C45.0 Office Visit 03/28/2018 8:00a Infusion Center Jesika Pepe, SHIPPING ASSOCIATE 54808 R11.0 C45.0 J91.0 E86.0 Office Visit 03/24/2018 7:30a Infusion Center Jesika Pepe, HEENA 479[address] Z51.11 C45.0 J91.0 N17.9 D70.1 Office Visit 03/18/2018 11:00a [place] [address] C45.0 J91.0 N17.9 D70.1 E86.0 R11.2 E53.9 Office Visit 03/14/2018 9:00a Infusion Center Jesika Pepe, HEENA [address]2872 R94.4 R11.0 C45.0 Office Visit 03/12/2018 12:00p Infusion Center Jesika Pepe, SHIPPING ASSOCIATE 77935 R94.4 R11.0 C45.0 I82.621 Office Visit 03/06/2018 7:30a Infusion Center Jesika Pepe, HEENA 18152 R94.4 C45.0 E83.42 R11.0 J91.0 W01.10xA Office Visit 03/03/2018 7:30a Infusion Center Jesika Pepe, HEENA [address]238 Z51.11 C45.0 E83.42 N17.9 J91.0 F06.4 R11.0 D70.1 Office Visit 02/27/2018 8:30a Infusion Center Jesika Pepe, SHIPPING ASSOCIATE 65211 C45.0 E83.42 R94.4 J91.0 R11.0 Office Visit 02/24/2018 8:00a [place] [address] N17.9 C45.0 E83.42 E86.0 J91.0 Office Visit 02/19/2018 8:00a [place] [address] N17.9 C45.0 E86.0 E83.42 Office Visit 02/18/2018 7:30a Infusion Center Jesika Pepe, SHIPPING ASSOCIATE 57407 R94.4 E83.42 C45.0 Office Visit 02/17/2018 7:00a Infusion Center Jesika Pepe, SHIPPING ASSOCIATE 99771 R94.4 R11.0 E83.42 C45.0 Office Visit 02/14/2018 12:30p Infusion Center Jesika Pepe, SHIPPING ASSOCIATE 15910 R94.4 E83.42 C45.0 Office Visit 02/13/2018 12:30p Infusion Center Jesika Pepe, SHIPPING ASSOCIATE 01180 R94.4 R11.2 Office Visit 02/10/2018 7:30a Infusion Center Jesika Pepe, SHIPPING ASSOCIATE 98838 Z51.11 C45.0 E83.42 R94.4 J91.0 Office Visit 01/30/2018 1:00p [place] [address] K12.31 C45.0 Office Visit 01/27/2018 9:45a [place] [address] C45.0 J91.0 F41.9 D70.1 E86.0 Office Visit 01/23/2018 9:30a Infusion Center Jesika Pepe, SHIPPING ASSOCIATE 97130 E86.0 R11.0 C45.0 Office Visit 01/20/2018 7:30a Infusion Center Jesika Pepe, SHIPPING ASSOCIATE 05827 Z51.11 C45.0 J91.0 D70.1 Office Visit 01/17/2018 10:00a [place] [address] C45.0 D70.1 F41.9 J91.0 E53.9 H54.3 Office Visit 01/09/2018 1:30p [place] [address] C45.0 D70.1 F41.9 J91.0 E53.9 Office Visit 12/30/2017 7:30a Infusion Center Jesika Pepe, SHIPPING ASSOCIATE 73292 Z51.11 C45.0 D70.1 R11.2 F41.9 J91.0 H53.8 E83.42 Office Visit 12/16/2017 2:45p [place] [address] C45.0 D70.1 E53.9 R11.2 F41.9 G89.3 J91.0 Office Visit 12/12/2017 9:00a Infusion Center Jesika Pepe, HEENA 60255 C45.0 R11.2 J91.0 E86.0 Office Visit 12/09/2017 7:30a Infusion Center Jesika Pepe, SHIPPING ASSOCIATE 65297 Z51.11 C45.0 D70.1 R11.0 F06.31 J90 K12.31 E53.9 Office Visit 11/25/2017 9:30a Oncology Office Jasiel Sofia, [address]000 E53.9 R11.2 C45.0 F41.9 D70.1 Office Visit 11/21/2017 11:30[place] [address] R11.0 F06.31 C45.0 K12.31 E86.0 Office Visit 11/18/2017 7:15a Infusion Center Jesika Pepe, SHIPPING ASSOCIATE 94187 Z51.11 C45.0 E53.9 F06.31 R11.2 K12.31 J90 Office Visit 10/30/2017 1:15p [place] [address] C45.0 E53.9 F41.9 R11.2 D70.1 G89.3 K12.30 Office Visit 10/25/2017 7:00a Infusion Center Jesika Pepe, SHIPPING ASSOCIATE 87260 Z51.11 C45.0 F41.9 R11.2 D70.1 G89.3 Office Visit 10/23/2017 10:00a [place] [address] C45.0 E53.9 F41.9 G89.3 R11.2 D70.1 D64.9 Office Visit 10/22/2017 11:30a Surgical Office Danie Huynh MD,FACS 32930 C45.0 Office Visit 2017 11:00a [place] [address] C45.0 F41.9 J90 G89.3 Office Visit 09/27/2017 2:00p [place] [address] C45.0 J90 G89.3 F41.9 Office Visit 09/27/2017 1:15p [place] [address] C45.0 R07.9 Office Visit 09/20/2017 9:15a GI Angelo Nuñ[place] [address] R12 R93.3 Z12.11 R10.11 Office Visit 09/06/2017 11:30a [place] [address] J90 R06.02 Z01.812 Office Visit 12/29/2015 12:45p [place] [address] I20.0 Plan of Care 06/23/2018 - Jesika Pepe, NPC45.9 Mesothelioma, unspecifiedComments:No active treatment at this time per Dr. Sofia. Continue to follow with Dr. WalshFollow up:As scheduled with Dr. UGALDE.99 Other pulmonary embolism without acute cor pulmonaleComments:Continues WsgnwsiU89.1 Abscess of lung with pneumoniaComments:Chest tube has been removed. Pt continues to IV antibiotics per infectious qjuupdsH48.1 Orthostatic hypotensionComments:Secondary to poor oral intake. 1000ml NS IV eekmjG58.00 Constipation, unspecifiedComments: Secondary to narcotics. Abdominal assessment benign. Continue current bowel regimen. Dulcolax given in infusion suite
--- OUTSIDE RECORDS SUMMARY | 2018-07-15 13:00 | XMS REPORT ---
:1960 External Reference #:[id number] Author Organization [facility] 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 Bridgett Austin PA Primary Care Physician Unavailable Payers Type Date Identification Numbers Payment Provider Subscriber Commercial Policy Number: [id number] [facility] Alber Pollack PayID: [id number] [address] [place] [address] Problems Date Description Provider Status Onset: 09/20/2017 [...] Home Environment Lives Alone Occupation Currently Working [employer] Work Status Currently Working Smokeless Tobacco [...] Tablets 5mg 30tab 1 tablet by F06.31 Bismark2017 s mouth Jasiel, everyday DO Fentanyl 05/22/ Active Patches 100mcg/HR 10uni 1 patch every G89.3 Bismark2017 72HR ts 72 hours Jasiel, DO Dilaudid 05/22/ Active Tablets 4mg 120ta 1-2 tablet G89.3 Rossy2017 bs by mouth Jasiel, every 4 hours DO as needed for pain Alprazolam 03/03/ Active Tablets 1mg 90tab 1 tablet by Bismark 2017 s mouth every 8 Jasiel, hours as DO needed for anxiety Docusate Sodium 10/25/ Active Capsules 100mg 60cap take 1 2017 s capsule by Lauren, mouth twice DO daily as needed for constipation Zofran Odt 10/23/ Active Tablets 8mg 30tab 1 on the 2017 Dispers s tongue every Lauren, 8 [...] Active Tablets 20mg 30tab take 1 tablet Karpen, 0000 s by mouth once , daily With DO Dinner Furosemide / Active Tablets 40mg Take 1 Tablet Unknown 0000 (40MG) Every Morning Gabapentin / Active Capsules 300mg 90cap Take One Karpenko, s Capsule Jasiel (300MG) 3 DO (Three) Times A Day( per pt 2 times) Hydromorphone / Active Tablets 4mg Take 1 To 1 Unknown HCL 0000 And 1/2 Tablets (4-6MG Total) Every 4 (Four) Hours as Need Levaquin 06/16/ Hx Tablets 500mg 7tabs 1 by mouth J90 Bismark2017 - every day Jasiel, 06/23/ DO 2017 [...] Hx Tablets 50mg 30tab 1 by mouth Lawrence 2017 - s every day Lauren, 2017 Oxycodone HCL 10/23/ Hx Tablets 10mg 120ta 1 tablet by Bismark 2017 - bs mouth every Jasiel, 06/24/ [...] - s every day Jasiel, 2017 Lorazepam 14/ Hx Tablets 0.5mg 90tab take 1 tablet Bismark 2017 - s by mouth Jasiel, 03/03/ three times a DO 2017 day as needed for nausea after chemo Tramadol HCL 09/27/ Hx Tablets 50mg 90tab Take 1 tablet C45.0 Dariana 2017 - s by mouth MD Jerald 10/09/ every 8 hours 2017 as needed for moderate pain. Tussionex 09/27/ Hx Suer 10-8mg/5M 115ml 1 teaspoon by Shelley Sofia 2018 - L mouth q12prn Jasiel, Extended 10/09/ cough DO Release 2017 [place] 09/27/ Hx Tablets 10-325mg 120ta 1 tablet by Bismark 2018 - bs mouth every 6 Jasiel, 02/24/ hours when DO 2018 necessary pain Xanax 09/27/ Hx Tablets 0.5mg 90tab 1 tablet by Bismark 2017 - s mouth every 8 Jasiel, 12/12/ hours as DO 2018 needed for anxiety Pleural Fluid 09/06/ Hx J90 [place], Cytology 2017 MD Jerald Omeprazole / Hx Capsules 10mg 1 tab by Unknown 0000 - DR mouth every day 2017 Fentanyl / Hx Patches 75mcg/HR Apply One Unknown 0000 - 72HR Patch Every 3 2017 Medications Administered in Office Medication Date [...] kg/m2 BSA (Body Surface Area) 2.11 m2 [place] body weight in kilograms 81 O2 % [...] kg/m2 BSA (Body Surface Area) 2.15 m2 [place] body weight in kilograms 82 O2 % BldC Oximetry 95 % Pain Level 3 10/22/2017 BP Systolic 128 mmHg BP Diastolic 88 mmHg Height 72 inches 6'0" Weight 201.00 lb BMI (Body Mass Index) 27.3 kg/m2 BSA (Body Surface Area) 2.14 m2 [place] body weight in kilograms 81 2017 BP [...] kg/m2 BSA (Body Surface Area) 2.14 m2 [place] body weight in kilograms 81 09/27/2017 BP [...] kg/m2 BSA (Body Surface Area) 2.16 m2 [place] body weight in kilograms 81 09/06/2017 BP [...] Lymph % 8.6 % Low 20.0-42.0 1 Fleming % 13.4 % High 0.0-10.0 1 Eo% 2.9 % 0.0-6.6 1 Bas% 0.6 % 0.0-1.1 1 Neut# 4.05 K/uL 1.8-7.0 1 Lymph # 0.47 K/uL Low 1.0-4.0 1 Fleming # 0.73 K/uL 0.0-0.8 1 Eos # [...] Lymph % 17.6 % Low 20.0-42.0 5 Fleming % 18.1 % High 0.0-10.0 5 Eo% 4.0 % 0.0-6.6 5 Bas% 0.7 % 0.0-1.1 5 Neut# 2.53 K/uL 1.8-7.0 5 Lymph # 0.75 K/uL Low 1.0-4.0 5 Fleming # 0.77 K/uL 0.0-0.8 5 Eos # [...] Lymph % 10.3 % Low 20.0-42.0 13 Fleming % 13.1 % High 0.0-10.0 13 Eo% 1.0 % 0.0-6.6 13 Bas% 0.7 % 0.0-1.1 13 Neut# 6.50 K/uL 1.8-7.0 13 Lymph # 0.89 K/uL Low 1.0-4.0 13 Fleming # 1.14 K/uL High 0.0-0.8 13 Eos [...] Ketone NEGATIVE mg/dL Negative 16 Urine Specific [place] 1.015 1.010-1.030 16 Urine Blood NEGATIVE Negative [...] Lymph % 11.8 % Low 20.0-42.0 16 Fleming % 16.0 % High 0.0-10.0 16 Eo% 1.2 % 0.0-6.6 16 Bas% 0.3 % 0.0-1.1 16 Neut# 4.24 K/uL 1.8-7.0 16 Lymph # 0.71 K/uL Low 1.0-4.0 16 Fleming # 0.96 K/uL High 0.0-0.8 16 Eos [...] Lymph % 3.9 % Low 20.0-42.0 21 Fleming % 9.6 % 0.0-10.0 21 Eo% 0.2 % 0.0-6.6 21 Bas% 0.2 % 0.0-1.1 21 Neut# 11.87 K/uL High 1.8-7.0 21 Lymph # 0.54 K/uL Low 1.0-4.0 21 Fleming # 1.33 K/uL High 0.0-0.8 21 Eos [...] Lymph % 1.4 % Low 20.0-42.0 33 Fleming % 1.5 % 0.0-10.0 33 Eo% 0.1 % 0.0-6.6 33 Bas% 0.2 % 0.0-1.1 33 Neut# 58.56 K/uL High 1.8-7.0 33 Lymph # 0.87 K/uL Low 1.0-4.0 33 Fleming # 0.90 K/uL High 0.0-0.8 33 Eos [...] Lymph % 12.7 % Low 20.0-42.0 34 Fleming % 14.5 % High 0.0-10.0 34 Eo% 1.8 % 0.0-6.6 34 Bas% 0.5 % 0.0-1.1 34 Neut# 3.93 K/uL 1.8-7.0 34 Lymph # 0.71 K/uL Low 1.0-4.0 34 Fleming # 0.81 K/uL High 0.0-0.8 34 Eos [...] Lymph % 14.3 % Low 20.0-42.0 40 Fleming % 14.9 % High 0.0-10.0 40 Eo% 1.5 % 0.0-6.6 40 Bas% 0.3 % 0.0-1.1 40 Neut# 4.54 K/uL 1.8-7.0 40 Lymph # 0.94 K/uL Low 1.0-4.0 40 Fleming # 0.98 K/uL High 0.0-0.8 40 Eos [...] Lymph % 14.2 % Low 20.0-42.0 55 Fleming % 14.7 % High 0.0-10.0 55 Eo% 1.6 % 0.0-6.6 55 Bas% 1.1 % 0.0-1.1 55 Neut# 3.87 K/uL 1.8-7.0 55 Lymph # 0.80 K/uL Low 1.0-4.0 55 Fleming # 0.83 K/uL High 0.0-0.8 55 Eos [...] Lymph % 11.6 % Low 20.0-42.0 60 Fleming % 17.8 % High 0.0-10.0 60 Eo% 1.3 % 0.0-6.6 60 Bas% 0.6 % 0.0-1.1 60 Neut# 3.62 K/uL 1.8-7.0 60 Lymph # 0.61 K/uL Low 1.0-4.0 60 Fleming # 0.94 K/uL High 0.0-0.8 60 Eos [...] Lymph % 12.4 % Low 20.0-42.0 64 Fleming % 11.6 % High 0.0-10.0 64 Eo% 1.5 % 0.0-6.6 64 Bas% 0.6 % 0.0-1.1 64 Neut# 5.92 K/uL 1.8-7.0 64 Lymph # 0.99 K/uL Low 1.0-4.0 64 Fleming # 0.93 K/uL High 0.0-0.8 64 Eos [...] Lymph % 9.8 % Low 20.0-42.0 68 Fleming % 11.1 % High 0.0-10.0 68 Eo% 1.4 % 0.0-6.6 68 Bas% 0.4 % 0.0-1.1 68 Neut# 6.94 K/uL 1.8-7.0 68 Lymph # 0.88 K/uL Low 1.0-4.0 68 Fleming # 1.00 K/uL High 0.0-0.8 68 Eos [...] Lymph % 4.3 % Low 20.0-42.0 73 Fleming % 10.6 % High 0.0-10.0 73 Eo% 0.5 % 0.0-6.6 73 Bas% 0.3 % 0.0-1.1 73 Neut# 15.42 K/uL High 1.8-7.0 73 Lymph # 0.79 K/uL Low 1.0-4.0 73 Fleming # 1.95 K/uL High 0.0-0.8 73 Eos [...] Lymph % 11.2 % Low 20.0-42.0 75 Fleming % 12.0 % High 0.0-10.0 75 Eo% 0.7 % 0.0-6.6 75 Bas% 0.8 % 0.0-1.1 75 Neut# 5.33 K/uL 1.8-7.0 75 Lymph # 0.79 K/uL Low 1.0-4.0 75 Fleming # 0.85 K/uL High 0.0-0.8 75 Eos [...] Lymph % 5.4 % Low 20.0-42.0 78 Fleming % 9.3 % 0.0-10.0 78 Eo% 0.8 % 0.0-6.6 78 Bas% 0.2 % 0.0-1.1 78 Neut# 12.49 K/uL High 1.8-7.0 78 Lymph # 0.80 K/uL Low 1.0-4.0 78 Fleming # 1.38 K/uL High 0.0-0.8 78 Eos [...] Lymph % 10.8 % Low 20.0-42.0 81 Fleming % 12.4 % High 0.0-10.0 81 Eo% 3.2 % 0.0-6.6 81 Bas% 0.7 % 0.0-1.1 81 Neut# 5.06 K/uL 1.8-7.0 81 Lymph # 0.75 K/uL Low 1.0-4.0 81 Fleming # 0.86 K/uL High 0.0-0.8 81 Eos [...] /uL High 0-1000 95 [place] [address] /uL High 0-76856 95 Pleural FLD Poly 23 % 0-25 [...] information may be found at [email or web address]. 15 Industrial Tractor Driver: [id number] 16 C45.0 J91.0 E86.0 E53.9 Z51.11 17 [...] TO FLORENCIA Silva AT 1020 03/06/18 by LAB.JEAN-PAULN 30 C45.0 E83.42 N17.9 31 STAT PER [...] found at [email or web address]. 39 STAT JESIKA PEPE PH [phone] FAX [phone] PORT DRAW 40 C45.0 E86.0 E83.42 Z51.11 R11.0 E53.9 D64.9 41 INDICATED,SLIDE SENT Hematology Consultation Final Report Case# [id number] Review of peripheral blood smear shows very [...] 8:24 PM, Report electronically signed Performed at: [facility] [id number] [place] [id number] 03/01/18 1126: PATH REVIEW: previously reported as: [...] [email or web address]. 62 STAT JESIKA PEPE NP 63 Industrial Tractor Driver: [id number] 64 C45.0 D70.1 Z51.11 J91.0 65 Note: [...] 2.5 - 3.5 Mechanical heart valves 85 Industrial Tractor Driver: [id number] 86 [id number] 87 Values below the stated reference ranges [...] Fluid Test developed and characteristics determined by [facility]. See Compliance Statement B: Blink for iPhone and Android.[employer]/ Performed at: [facility] [address] [id number] Tire Recapper: Axel Song MD, Phone: [phone] Performed at: [address] [id number] Tire Recapper: Kimberly Palomo MD, Phone: [phone] 97 : Peritoneal : Pleural : Synovial [...] the clinical context for interpretation. Performed at: [address] [id number] Tire Recapper: Kimberly Palomo MD, Phone: [phone] 98 : Peritoneal : Pleural : Synovial [...] developed and its performance characteristics determined by [facility]. It has not been cleared or approved [...] CELLS PRESENT. Hematology Consultation Final Report Case# [id number] Final Diagnosis Specimen labeled pleural fluid, cytospin: -The specimen shows atypical cells, mesothelial cells, monocytes, lymphocytes, neutrophils and red blood cells. Comment: This case was correlated with cytology case ([id number]) which has a diagnosis of highly suspicious of malignant mesothelioma. [place] 10/01/17 Gross Discription: Pleural fluid CORBIN SERRANO MD, Pathologist Reported 10/01/2017 at 9:19 PM, Report electronically signed Performed at: [facility] [id number] [place] [address] 10/02/17 0748: COMMENT: previously reported as: . [...] Procedures Date CPT Code Description Status 10/18/2017 45241 Theraputic Or Diagnostic Injection Completed 09/30/2017 29755 EKG Interpretation And Report Only Completed 09/30/2017 16169 Insertion Tunneled Cent Venous Cathr W Subcut Port 5 Completed Yrs Or Oldr 09/30/2017 60691 Insert indewelling tunneled pleural catheter with cuff Completed 09/24/2017 35257 EGD With Biopsy Completed Encounters Type Date Location Provider CPT E/M Dx Office Visit 06/16/2018 11:00a [place] [address] C45.0 E61.1 J85.1 J90 Office Visit 06/09/2018 10:15a [place] [address] C45.0 E61.1 J85.1 E86.0 F06.31 Office Visit 06/04/2018 1:00p [place] [address] C45.0 J85.1 E61.1 R11.2 G89.3 Office Visit 05/22/2018 2:30p [place] [address] C45.0 J91.0 J85.1 D64.9 G89.3 Office Visit 04/04/2018 8:30a [place] [address] C45.0 D70.1 E53.9 Office Visit 03/31/2018 10:00a Infusion Center Jesika Pepe, LOCATOR 32436 E86.0 R11.0 J91.0 C45.0 Office Visit 03/28/2018 8:00a Infusion Center Jesika Pepe, LOCATOR 79979 R11.0 C45.0 J91.0 E86.0 Office Visit 03/24/2018 7:30a Infusion Center Jesika Pepe, LOCATOR 16301 Z51.11 C45.0 J91.0 N17.9 D70.1 Office Visit 03/18/2018 11:00a Oncology Office Jasiel Sofia, [address]35 C45.0 J91.0 N17.9 D70.1 E86.0 R11.2 E53.9 Office Visit 03/14/2018 9:00a Infusion Center Jesika Pepe, LOCATOR 10516 R94.4 R11.0 C45.0 Office Visit 03/12/2018 12:00p Infusion Center Jesika Pepe, LOCATOR 75407 R94.4 R11.0 C45.0 I82.621 Office Visit 03/06/2018 7:30a Infusion Center Jesika Pepe, LOCATOR 78221 R94.4 C45.0 E83.42 R11.0 J91.0 W01.10xA Office Visit 03/03/2018 7:30a Infusion Center Jesika Pepe, LOCATOR 02214 Z51.11 C45.0 E83.42 N17.9 J91.0 F06.4 R11.0 D70.1 Office Visit 02/27/2018 8:30a Infusion Center Jesika Pepe, LOCATOR 68340 C45.0 E83.42 R94.4 J91.0 R11.0 Office Visit 02/24/2018 8:00a [place] [address] N17.9 C45.0 E83.42 E86.0 J91.0 Office Visit 02/19/2018 8:00a [place] [address] N17.9 C45.0 E86.0 E83.42 Office Visit 02/18/2018 7:30a Infusion Center Jesika Pepe, LOCATOR 10320 R94.4 E83.42 C45.0 Office Visit 02/17/2018 7:00a Infusion Center Jesika Pepe, LOCATOR 57828 R94.4 R11.0 E83.42 C45.0 Office Visit 02/14/2018 12:30p Infusion Center Jesika Pepe, LOCATOR 85942 R94.4 E83.42 C45.0 Office Visit 02/13/2018 12:30p Infusion Center Jesika Pepe, LOCATOR 10642 R94.4 R11.2 Office Visit 02/10/2018 7:30a Infusion Center Jesika Pepe, LOCATOR 87592 Z51.11 C45.0 E83.42 R94.4 J91.0 Office Visit 01/30/2018 1:00p [place] [address] K12.31 C45.0 Office Visit 01/27/2018 9:45a [place] [address] C45.0 J91.0 F41.9 D70.1 E86.0 Office Visit 01/23/2018 9:30a Infusion Center Jesika Pepe, LOCATOR 22920 E86.0 R11.0 C45.0 Office Visit 01/20/2018 7:30a Infusion Center Jesika Pepe, LOCATOR 56343 Z51.11 C45.0 J91.0 D70.1 Office Visit 01/17/2018 10:00a [place] [address] C45.0 D70.1 F41.9 J91.0 E53.9 H54.3 Office Visit 01/09/2018 1:30p [place] [address] C45.0 D70.1 F41.9 J91.0 E53.9 Office Visit 12/30/2017 7:30a Infusion Center Jesika Pepe, LOCATOR 62043 Z51.11 C45.0 D70.1 R11.2 F41.9 J91.0 H53.8 E83.42 Office Visit 12/16/2017 2:45p [place] [address] C45.0 D70.1 E53.9 R11.2 F41.9 G89.3 J91.0 Office Visit 12/12/2017 9:00a Infusion Center Jesika Pepe, LOCATOR 05869 C45.0 R11.2 J91.0 E86.0 Office Visit 12/09/2017 7:30a Infusion Center Jesika Pepe, LOCATOR 03314 Z51.11 C45.0 D70.1 R11.0 F06.31 J90 K12.31 E53.9 Office Visit 11/25/2017 9:30a Oncology Office Jasiel Sofia, [address] E53.9 R11.2 C45.0 F41.9 D70.1 Office Visit 11/21/2017 11:30a Infusion Center Jesika Pepe, LOCATOR 05084 R11.0 F06.31 C45.0 K12.31 E86.0 Office Visit 11/18/2017 7:15a Infusion Center Jesika Pepe, LOCATOR 76833 Z51.11 C45.0 E53.9 F06.31 R11.2 K12.31 J90 Office Visit 10/30/2017 1:15p [place] [address] C45.0 E53.9 F41.9 R11.2 D70.1 G89.3 K12.30 Office Visit 10/25/2017 7:00a Infusion Center Jesika Pepe, LOCATOR 34974 Z51.11 C45.0 F41.9 R11.2 D70.1 G89.3 Office Visit 10/23/2017 10:00a [place] [address] C45.0 E53.9 F41.9 G89.3 R11.2 D70.1 D64.9 Office Visit 10/22/2017 11:30a Surgical Office Danie Huynh MD,FACS 58004 C45.0 Office Visit 2017 11:00a [place] [address] C45.0 F41.9 J90 G89.3 Office Visit 09/27/2017 2:00p [place] [address] C45.0 J90 G89.3 F41.9 Office Visit 09/27/2017 1:15p [place] [address] C45.0 R07.9 Office Visit 09/20/2017 9:15a DANIEL Nuñ[place] [address] R12 R93.3 Z12.11 R10.11 Office Visit 09/06/2017 11:30a [place] [address] J90 R06.02 Z01.812 Office Visit 12/29/2015 12:45p [place] [address] I20.0 Plan of Care 06/24/2018 - Jasiel Sofia, DOE61.1 Iron deficiencyFollow up:Please set up for iron and I will see him that dayC45.0 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
--- OUTSIDE RECORDS SUMMARY | 2018-07-15 13:01 | XMS REPORT ---
:1960 External Reference #:[id number] Author Organization [facility] 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 Unavailable Bridgett Austin PA Primary Care Physician Unavailable Payers Type Date Identification Numbers Payment Provider Subscriber Commercial Policy Number: [id number] [facility] Alber Pollack PayID: [id number] [address] [place] [address] Problems Date Description Provider Status Onset: 09/20/2017 [...] Active Onset: 02/19/2018 Acute renal failure syndrome Jsaiel Sofia DO Active Onset: 02/19/2018 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 Onset: 05/22/2018 Abscess of lung Jasiel Sofia DO Active Onset: 06/04/2018 Iron deficiency Jasiel Sofia DO Active Onset: 06/09/2018 Mood disorder Jasiel Sofia DO Active Family History Date Family Member(s) Problem(s) Comments General Non Contributory First Brother Malignant Lymphoma (Clinical) Social History Type Date Description Comments Marital Status Single Home Environment Lives Alone Occupation Currently Working [employer] Work Status Currently Working Smokeless Tobacco Never [...] Form Strength Qnty SIG Indications Ordering Provider Levaquin 06/16/ Active Tablets 500mg 7tabs 1 by mouth J90 miriam, 2017 every day DO Jasiel Zyprexa 06/09/ Active Tablets 5mg 30tab 1 tablet by F06.31 Bismark, 2017 s mouth Jasiel, everyday DO Fentanyl 05/22/ Active Patches 100mcg/HR 10uni 1 patch every G89.3 [email or web address] 72HR ts 72 hours Jasiel, DO Dilaudid 05/22/ Active Tablets 4mg 120ta 1-2 tablet G89.3 Rossy, 2017 bs by mouth Jasiel every 4 hours DO as needed for pain Alprazolam 03/03/ Active Tablets 1mg 90tab 1 tablet by Mele Sofia s mouth every 8 Jasiel, hours as DO needed for anxiety Magnesium Oxide 02/24/ Active Tablets 400mg 60tab 1 tablet by Bismark 2017 s mouth twice a Jasiel, day DO Docusate Sodium 10/25/ Active Capsules 100mg 60cap take 1 Boufal2017 s capsule by Lauren mouth twice DO daily as needed for constipation Oxycodone HCL 10/23/ Active Tablets 10mg 120ta 1 tablet by Mele Sofia bs mouth every Jasiel, 6-8 hours as DO needed pain Folic Acid 10/23/ Active Tablets 1mg 30tab 1 by mouth Bismark 2017 s every day Jasiel, DO Zofran Odt 10/23/ Active Tablets 8mg 30tab 1 on the 2017 Dispers s tongue every Lauren, 8 hours as DO needed for nausea Compazine 10/23/ Active Tablets 10mg 90tab 10 mg by Mele Sofia s mouth q6prn Jasiel, for nausea DO Omeprazole 09/13/ Active Capsules 40mg 60cap take [address] twice daily. MD Jerald Vancomycin HCL / Active Solution 1gm once daily Unknown 0000 Rec Xarelto / Active Tablets 20mg take 1 tablet Unknown 0000 by mouth once daily With Dinner Furosemide / Active Tablets 40mg Take 1 Tablet Unknown 0000 (40MG) Every Morning Gabapentin / Active Capsules 300mg Take One Unknown 0000 Capsule (300MG) 3 (Three) Times A Day Hydromorphone / Active Tablets 4mg Take 1 To 1 Unknown HCL 0000 And 1/2 Tablets (4-6MG Total) Every 4 (Four) Hours as Need Ciprofloxacin 01/30/ Hx Tablets 500mg 14tab 1 tablet by K12.31 BERENICE Sofia 2017 - s mouth twice a Jasiel, 02/10/ day DO 2017 Fluconazole 01/30/ Hx Tablets 100mg 7tabs 1 tablet by K12.31 Mele Sofia - mouth daily Jasiel, 2017 Zyprexa 12/27/ Hx Tablets 5mg 30tab 1 tablet PO Mele Sofia - s qday Jasiel, 2017 Zoloft 12/27/ Hx Tablets 50mg 30tab 1 tablet by Mele Sofia - s mouth daily Jasiel, DO 2017 Haloperidol 11/19/ Hx Tablets 1mg 90tab prn 1 tablet Bismark 2017 - s by mouth Jasiel, 06/09/ every 6 hours DO 2017 when necessary for hiccups Sertraline HCL 11/18/ Hx Tablets 50mg 30tab 1 by mouth Lawrence 2017 - s every day Lauren, DO 2017 Oxycontin 10/23/ Hx Tab ER 20mg 60tab 1 tablet PO Q Bismark, 2017 - 12H s 12Hrs Jasiel, 12/09/ Abuse-Det DO 2017 Xanax 10/23/ Hx Tablets 1mg 60tab 1 tablet by F06.4 Lawrence 2017 - s mouth every 8 Lauren, 02/24/ hours as DO 2017 needed anxiety Lorazepam 10/23/ Hx Tablets 0.5mg 90tab take [...] Hx Suer 10-8mg/5M 115ml 1 teaspoon by Bismark Pennkinetic 2018 - L mouth q12prn Jasiel, Extended 10/09/ cough DO Release 2017 [place] 09/27/ Hx Tablets 10-325mg 120ta 1 tablet by Mele Sofia - bs mouth every 6 Jasiel, 02/24/ hours when DO 2017 necessary pain Xanax 09/27/ Hx Tablets 0.5mg 90tab 1 tablet by Bismark 2018 - s mouth every 8 Jasiel, 12/12/ hours as DO 2017 needed for anxiety Pleural Fluid 09/06/ Hx J90 Dariana, Cytology 2017 MD Jerald Omeprazole / Hx Capsules 10mg 1 tab by Unknown 0000 - DR mouth every 09/13/ day 2017 Fentanyl // Hx Patches 75mcg/HR Apply One Unknown 0000 - 72HR Patch Every 3 06/04/ 2018 Medications Administered in Office Medication Date Status Form Strength Qnty SIG Indications Ordering Provider Vitamin B12 Administered Injection Oncology Injection 1000 018 Nurse mcg/Ml Theraputic Or Administered Injection Oncology Diagnostic 018 Nurse Injection Vital Signs Date Vital Result Comment 06/09/2018 BP Systolic Sitting Left Arm 102 [...] kg/m2 BSA (Body Surface Area) 2.11 m2 [place] body weight in kilograms 81 O2 % [...] kg/m2 BSA (Body Surface Area) 2.15 m2 [place] body weight in kilograms 82 O2 % BldC Oximetry 95 % Pain Level 3 10/22/2017 BP Systolic 128 mmHg BP Diastolic 88 mmHg Height 72 inches 6'0" Weight 201.00 lb BMI (Body Mass Index) 27.3 kg/m2 BSA (Body Surface Area) 2.14 m2 [place] body weight in kilograms 81 2017 BP [...] kg/m2 BSA (Body Surface Area) 2.14 m2 [place] body weight in kilograms 81 09/27/2017 BP [...] kg/m2 BSA (Body Surface Area) 2.16 m2 [place] body weight in kilograms 81 09/06/2017 BP Systolic Sitting Right Arm 122 mmHg BP Diastolic Sitting Right Arm 78 mmHg Heart Rate 87 /min Respiratory Rate 14 /min Weight 206.00 lb O2 % BldC Oximetry 94 % Room air Results Test Date Test Result H/L Range Note CBC W/Automated Diff 06/05/2018 White Blood Count 4.3 K/uL 3.4-10.5 1 Red Blood Count 2.61 M/uL Low 4.20-5.80 1 Hemoglobin 8.1 gm/dL Low 12.8-17.0 1 Hematocrit 26.7 % Low 38.0-48.0 1 Mean Cell Volume 102.3 fl High 80.0-96.0 1 Mean Corpuscular HGB 31.0 pg 27.0-33.0 1 Mean Corpuscular HGB Conc 30.3 g/dL Low 31.7-36.0 1 Platelet Count 303 K/uL 155-360 1 Red Cell Distri Width SD 60.2 fl High 36-51 1 Red Cell Distri Width %CV 16.6 % High 11.6-15.8 1 Mean Platelet Volume 9.6 fL 6.6-10.6 1 Neut% 59.6 % 33.0-73.0 1 Lymph % 17.6 % Low 20.0-42.0 1 Brantley % 18.1 % High 0.0-10.0 1 Eo% 4.0 % 0.0-6.6 1 Bas% 0.7 % 0.0-1.1 1 Neut# 2.53 K/uL 1.8-7.0 1 Lymph # 0.75 K/uL Low 1.0-4.0 1 Brantley # 0.77 K/uL 0.0-0.8 1 Eos # 0.17 K/uL 0.0-0.5 1 Baso # 0.03 K/uL 0.0-0.1 1 Basic Metabolic Panel 06/05/2018 Glucose 97 mg/dL 74-106 1 BUN 14 mg/dL 7-18 1 Creatinine 1.7 mg/dL High 0.6-1.3 1 Glom Filtration Rate, Estimate 45 mL/min >60 1 If 54 mL/min >60 1, 2 BUN/Creat 8.2 ratio 1 Sodium 138 mmol/L 136-145 1 Potassium 3.8 mmol/L 3.5-5.1 1 Chloride 98 mmol/L 98-107 1 Carbon Dioxide 32 mmol/L 21-32 1 Anion Gap 8 mEq/L 8-16 1 Calcium 9.1 mg/dL 8.5-10.1 1 Laboratory test 06/05/2018 C-Reactive 72.8 mg/L High <3.0 1 finding Protein,Quant Aot Request 06/05/2018 Aot Request Test(s) added 1, 3 Tests to be added: CRP to admission <SEE NOTE> 1, 4 Blood Culture 06/04/2018 Blood Culture Aerobic NO GROWTH: FINAL <SEE NOTE> 1, 5 Blood Culture Anaerobic NO GROWTH: FINAL <SEE NOTE> 1, 6 Blood Culture 06/04/2018 Blood Culture Aerobic NO GROWTH: FINAL <SEE NOTE> 1, 7 Blood Culture Anaerobic NO GROWTH: FINAL <SEE NOTE> 1, 8 CBC W/Automated Diff 05/22/2018 White Blood Count 8.7 K/uL 3.4-10.5 9 Red Blood Count 2.97 M/uL Low 4.20-5.80 9 Hemoglobin 9.5 gm/dL Low 12.8-17.0 9 Hematocrit 30.4 % Low 38.0-48.0 9 Mean Cell Volume 102.4 fl High 80.0-96.0 9 Mean Corpuscular HGB 32.0 pg 27.0-33.0 9 Mean Corpuscular HGB Conc 31.3 g/dL Low 31.7-36.0 9 Platelet Count 438 K/uL High 155-360 9 Red Cell Distri Width SD 60.4 fl High 36-51 9 Red Cell Distri Width %CV 16.6 % High 11.6-15.8 9 Mean Platelet Volume 10.0 fL 6.6-10.6 9 Neut% 74.9 % High 33.0-73.0 9 Lymph % 10.3 % Low 20.0-42.0 9 Brantley % 13.1 % High 0.0-10.0 9 Eo% 1.0 % 0.0-6.6 9 Bas% 0.7 % 0.0-1.1 9 Neut# 6.50 K/uL 1.8-7.0 9 Lymph # 0.89 K/uL Low 1.0-4.0 9 Brantley # 1.14 K/uL High 0.0-0.8 9 Eos # 0.09 K/uL 0.0-0.5 9 Baso # 0.06 K/uL 0.0-0.1 9 Comprehensive Metabolic Panel 05/22/2018 Glucose 101 mg/dL 74-106 9 BUN 18 mg/dL 7-18 9 Creatinine 1.9 mg/dL High 0.6-1.3 9 Glom Filtration Rate, Estimate 39 mL/min >60 9 If 48 mL/min >60 9, 10 BUN/Creat 9.4 ratio 9 Sodium 137 mmol/L 136-145 9 Potassium 4.6 mmol/L 3.5-5.1 9 Chloride 97 mmol/L Low 98-107 9 Carbon Dioxide 31 mmol/L 21-32 9 Anion Gap 9 mEq/L 8-16 9 Calcium 9.8 mg/dL 8.5-10.1 9 Total Protein 8.6 g/dL High 6.4-8.2 9 Albumin 2.8 g/dL Low 3.4-5.0 9 Globulin 5.8 g/dL High 1.9-4.3 9 Alb/Glob 0.5 ratio 9 Bilirubin,Total 0.3 mg/dL 0.2-1.0 9 Sgot/Ast 18 U/L 15-37 9 SGPT/Alt 17 U/L 12-78 9 Alkaline Phosphatase 161 U/L High 45-117 9 Iron-Tibc-%Sat 05/22/2018 Serum Iron 23 g/dL Low 65-175 9 Total Iron Binding Capacity 204 g/dL Low 250-450 9 Transferrin %Saturation 11 % Low 12-57 9 Laboratory test finding 04/02/2018 Point of Care Glucose 93 mg/dL 70-100 11 Basic Metabolic Panel 03/31/2018 Glucose 77 mg/dL 74-106 12 BUN 26 mg/dL High 7-18 12 Creatinine 1.2 mg/dL 0.6-1.3 12 Glom Filtration Rate, Estimate >60 mL/min >60 12 If >60 mL/min >60 12, 13 BUN/Creat 21.6 ratio 12 Sodium 144 mmol/L 136-145 12 Potassium 5.0 mmol/L 3.5-5.1 12 Chloride 107 mmol/L 98-107 12 Carbon Dioxide 26 mmol/L 21-32 12 Anion Gap 11 mEq/L 8-16 12 Calcium 8.6 mg/dL 8.5-10.1 12 Ua RFX Micro & Culture II 03/31/2018 Urine Color YELLOW Yellow 12 Urine Clarity CLEAR Clear 12 Urine Glucose - Dipstick NEGATIVE mg/dL Negative 12 Urine Bilirubin - Dipstick NEGATIVE Negative 12 Urine Ketone NEGATIVE mg/dL Negative 12 Urine Specific [place] 1.015 1.010-1.030 12 Urine Blood NEGATIVE Negative 12 Urine PH 6.0 Low 6.5-7.5 12 Urine Protein - Dipstick NEGATIVE mg/dL Negative 12 Urine Urobilinogen - Dipstick 0.2 E.U./dL 0.2-1.0 12 Urine Nitrite - Dipstick NEGATIVE Negative 12 Urine Leuk Esterase NEGATIVE Negative 12 CBS W/Automated Diff 03/24/2018 White Blood Count 6.0 K/uL 3.4-10.5 12 Red Blood Count 2.86 M/uL Low 4.20-5.80 12 Hemoglobin 10.6 gm/dL Low 12.8-17.0 12 Hematocrit 32.9 % Low 38.0-48.0 12 Mean Cell Volume 115.0 fl High 80.0-96.0 12 Mean Corpuscular HGB 37.1 pg High 27.0-33.0 12 Mean Corpuscular HGB Conc 32.2 g/dL 31.7-36.0 12 Platelet Count 216 K/uL 155-360 12 Red Cell Distri Width SD 56.6 fl High 36-51 12 Red Cell Distri Width %CV 14.1 % 11.6-15.8 12 Mean Platelet Volume 10.9 fL High 6.6-10.6 12 Neut% 70.7 % 33.0-73.0 12 Lymph % 11.8 % Low 20.0-42.0 12 Brantley % 16.0 % High 0.0-10.0 12 Eo% 1.2 % 0.0-6.6 12 Bas% 0.3 % 0.0-1.1 12 Neut# 4.24 K/uL 1.8-7.0 12 Lymph # 0.71 K/uL Low 1.0-4.0 12 Brantley # 0.96 K/uL High 0.0-0.8 12 Eos # 0.07 K/uL 0.0-0.5 12 Baso # 0.02 K/uL 0.0-0.1 12 Comprehensive Metabolic Panel 03/24/2018 Glucose 81 mg/dL 74-106 12 BUN 21 mg/dL High 7-18 12 Creatinine 1.5 mg/dL High 0.6-1.3 12 Glom Filtration Rate, Estimate 52 mL/min >60 12 If >60 mL/min >60 12, 14 BUN/Creat 14.0 ratio 12 Sodium 144 mmol/L 136-145 12 Potassium 4.6 mmol/L 3.5-5.1 12 Chloride 109 mmol/L High 98-107 12 Carbon Dioxide 29 mmol/L 21-32 12 Anion Gap 6 mEq/L Low 8-16 12 Calcium 8.5 mg/dL 8.5-10.1 12 Total Protein 7.1 g/dL 6.4-8.2 12 Albumin 3.2 g/dL Low 3.4-5.0 12 Globulin 3.9 g/dL 1.9-4.3 12 Alb/Glob 0.8 ratio 12 Bilirubin,Total 0.1 mg/dL Low 0.2-1.0 12 Sgot/Ast 13 U/L Low 15-37 12, 15 SGPT/Alt 21 U/L 12-78 12 Alkaline Phosphatase 142 U/L High 45-117 12 Laboratory test finding 03/24/2018 Magnesium 2.1 mg/dL 1.8-2.4 12 Slide Review 03/24/2018 Slide Review (SEE NOTE) 12, 16 Laboratory test finding 03/24/2018 Path Review: <pending> 12 RBC Morphology Only 03/24/2018 Anisocytosis 1+ 12 Macrocytosis 1+ 12 Toxic Granulation 0-1+ 12 Comment . 12 Xray 03/12/2018 Ultrasound, Venous Doppler <pending> Arm/Leg Unilateral Limited Differential-WBC Confirm 03/12/2018 Total Cells Counted 100 #CELLS 17 Band% 4 % 0-8 17 Neutrophils% 80 % High 33-73 17 Lymph% 4 % Low 20-42 17 Monocyte% 10 % 0-10 17 Eosinophil% 1 % 0-5 17 Basophil% 1 % 0-2 17 Platelet Estimate NORMAL 17 Anisocytosis 0-1+ 17 Macrocytosis 1+ 17 CBS W/Automated Diff 03/12/2018 White Blood Count 13.8 K/uL High 3.4-10.5 17 Red Blood Count 2.94 M/uL Low 4.20-5.80 17 Hemoglobin 11.0 gm/dL Low 12.8-17.0 17 Hematocrit 33.1 % Low 38.0-48.0 17 Mean Cell Volume 112.6 fl High 80.0-96.0 17 Mean Corpuscular HGB 37.4 pg High 27.0-33.0 17 Mean Corpuscular HGB Conc 33.2 g/dL 31.7-36.0 17 Platelet Count 178 K/uL 155-360 17 Red Cell Distri Width SD 53.7 fl High 36-51 17 Red Cell Distri Width %CV 13.4 % 11.6-15.8 17 Mean Platelet Volume 11.3 fL High 6.6-10.6 17 Neut% 86.1 % High 33.0-73.0 17 Lymph % 3.9 % Low 20.0-42.0 17 Brantley % 9.6 % 0.0-10.0 17 Eo% 0.2 % 0.0-6.6 17 Bas% 0.2 % 0.0-1.1 17 Neut# 11.87 K/uL High 1.8-7.0 17 Lymph # 0.54 K/uL Low 1.0-4.0 17 Brantley # 1.33 K/uL High 0.0-0.8 17 Eos # 0.03 K/uL 0.0-0.5 17 Baso # 0.03 K/uL 0.0-0.1 17 Comprehensive Metabolic Panel 03/12/2018 Glucose 110 mg/dL High 74-106 17 BUN 20 mg/dL High 7-18 17 Creatinine 1.4 mg/dL High 0.6-1.3 17 Glom Filtration Rate, Estimate 56 mL/min >60 17 If >60 mL/min >60 17, 18 BUN/Creat 14.2 ratio 17 Sodium 142 mmol/L 136-145 17 Potassium 4.9 mmol/L 3.5-5.1 17 Chloride 108 mmol/L High 98-107 17 Carbon Dioxide 26 mmol/L 21-32 17 Anion Gap 8 mEq/L 8-16 17 Calcium 9.1 mg/dL 8.5-10.1 17 Total Protein 7.4 g/dL 6.4-8.2 17 Albumin 3.5 g/dL 3.4-5.0 17 Globulin 3.9 g/dL 1.9-4.3 17 Alb/Glob 0.9 ratio 17 Bilirubin,Total 0.4 mg/dL 0.2-1.0 17 Sgot/Ast 21 U/L 15-37 17 SGPT/Alt 21 U/L 12-78 17 Alkaline Phosphatase 234 U/L High 45-117 17 Laboratory test 03/12/2018 Magnesium 1.9 mg/dL 1.8-2.4 17, 19 finding Slide Review 03/12/2018 Slide Review DIFF ORDERED 17 Laboratory test 03/12/2018 Path Review: <pending> 17, 20 finding Xray 03/06/2018 CT, Head/Brain <pending> Without Contrast Basic Metabolic Panel 03/06/2018 Glucose 111 mg/dL High 74-106 21 BUN 21 mg/dL High 7-18 21 Creatinine 1.6 mg/dL High 0.6-1.3 21 Glom Filtration Rate, Estimate 48 mL/min >60 21 If 58 mL/min >60 21, 22 BUN/Creat 13.1 ratio 21 Sodium 141 mmol/L 136-145 21 Potassium 4.4 mmol/L 3.5-5.1 21 Chloride 105 mmol/L 98-107 21 Carbon Dioxide 27 mmol/L 21-32 21 Anion Gap 9 mEq/L 8-16 21 Calcium 8.8 mg/dL 8.5-10.1 21 Laboratory test finding 03/06/2018 Magnesium 1.7 mg/dL Low 1.8-2.4 21, 23 Comprehensive Metabolic Panel 03/06/2018 Glucose 111 mg/dL High 74-106 21 BUN 21 mg/dL High 7-18 21 Creatinine 1.6 mg/dL High 0.6-1.3 21 Glom Filtration Rate, Estimate 48 mL/min >60 21 If 58 mL/min >60 21, 24 BUN/Creat 13.1 ratio 21 Sodium 141 mmol/L 136-145 21 Potassium 4.4 mmol/L 3.5-5.1 21 Chloride 105 mmol/L 98-107 21 Carbon Dioxide 27 mmol/L 21-32 21 Anion Gap 9 mEq/L 8-16 21 Calcium 8.8 mg/dL 8.5-10.1 21 Total Protein 7.1 g/dL 6.4-8.2 21 Albumin 3.2 g/dL Low 3.4-5.0 21 Globulin 3.9 g/dL 1.9-4.3 21 Alb/Glob 0.8 ratio 21 Bilirubin,Total 0.3 mg/dL 0.2-1.0 21 Sgot/Ast 19 U/L 15-37 21 SGPT/Alt 17 U/L 12-78 21 Alkaline Phosphatase 164 U/L High 45-117 21 CBS W/Automated Diff 03/06/2018 White Blood Count 60.5 K/uL High 3.4-10.5 25 Red Blood Count 3.07 M/uL Low 4.20-5.80 25 Hemoglobin 11.6 gm/dL Low 12.8-17.0 25 Hematocrit 35.0 % Low 38.0-48.0 25 Mean Cell Volume 114.0 fl High 80.0-96.0 25 Mean Corpuscular HGB 37.8 pg High 27.0-33.0 25 Mean Corpuscular HGB Conc 33.1 g/dL 31.7-36.0 25 Platelet Count 342 K/uL 155-360 25 Red Cell Distri Width SD 60.2 fl High 36-51 25 Red Cell Distri Width %CV 14.8 % 11.6-15.8 25 Mean Platelet Volume 11.0 fL High 6.6-10.6 25 Neut% 96.8 % High 33.0-73.0 25 Lymph % 1.4 % Low 20.0-42.0 25 Brantley % 1.5 % 0.0-10.0 25 Eo% 0.1 % 0.0-6.6 25 Bas% 0.2 % 0.0-1.1 25 Neut# 58.56 K/uL High 1.8-7.0 25 Lymph # 0.87 K/uL Low 1.0-4.0 25 Brantley # 0.90 K/uL High 0.0-0.8 25 Eos # 0.05 K/uL 0.0-0.5 25 Baso # 0.12 K/uL High 0.0-0.1 25 Slide Review 03/06/2018 Slide Review DIFF ORDERED 25 Laboratory test finding 03/06/2018 Path Review: <pending> 25, 26 Differential-WBC Confirm 03/06/2018 Total Cells Counted 100 #CELLS 25 Band% 5 % 0-8 25 Neutrophils% 92 % High 33-73 25 Lymph% 2 % Low 20-42 25 Monocyte% 1 % 0-10 25 Platelet Estimate NORMAL 25 Anisocytosis 1+ 25 Macrocytosis 2+ 25 Stomatocyte 0-1+ 25 CBS W/Automated Diff 03/03/2018 White Blood Count 5.6 K/uL 3.4-10.5 27 Red Blood Count 3.16 M/uL Low 4.20-5.80 27 Hemoglobin 11.7 gm/dL Low 12.8-17.0 27 Hematocrit 35.3 % Low 38.0-48.0 27 Mean Cell Volume 111.7 fl High 80.0-96.0 27 Mean Corpuscular HGB 37.0 pg High 27.0-33.0 27 Mean Corpuscular HGB Conc 33.1 g/dL 31.7-36.0 27 Platelet Count 266 K/uL 155-360 27 Red Cell Distri Width SD 57.1 fl High 36-51 27 Red Cell Distri Width %CV 14.5 % 11.6-15.8 27 Mean Platelet Volume 10.3 fL 6.6-10.6 27 Neut% 70.5 % 33.0-73.0 27 Lymph % 12.7 % Low 20.0-42.0 27 Brantley % 14.5 % High 0.0-10.0 27 Eo% 1.8 % 0.0-6.6 27 Bas% 0.5 % 0.0-1.1 27 Neut# 3.93 K/uL 1.8-7.0 27 Lymph # 0.71 K/uL Low 1.0-4.0 27 Brantley # 0.81 K/uL High 0.0-0.8 27 Eos # 0.10 K/uL 0.0-0.5 27 Baso # 0.03 K/uL 0.0-0.1 27 Comprehensive Metabolic Panel 03/03/2018 Glucose 108 mg/dL High 74-106 27 BUN 15 mg/dL 7-18 27 Creatinine 1.6 mg/dL High 0.6-1.3 27 Glom Filtration Rate, Estimate 48 mL/min >60 27 If 58 mL/min >60 27, 28 BUN/Creat 9.3 ratio 27 Sodium 142 mmol/L 136-145 27 Potassium 4.4 mmol/L 3.5-5.1 27 Chloride 108 mmol/L High 98-107 27 Carbon Dioxide 28 mmol/L 21-32 27 Anion Gap 6 mEq/L Low 8-16 27 Calcium 8.9 mg/dL 8.5-10.1 27 Total Protein 7.2 g/dL 6.4-8.2 27 Albumin 3.1 g/dL Low 3.4-5.0 27 Globulin 4.1 g/dL 1.9-4.3 27 Alb/Glob 0.8 ratio 27 Bilirubin,Total 0.1 mg/dL Low 0.2-1.0 27 Sgot/Ast 12 U/L Low 15-37 27, 29 SGPT/Alt 13 U/L 12-78 27 Alkaline Phosphatase 136 U/L High 45-117 27 Laboratory test finding 03/03/2018 Magnesium 1.6 mg/dL Low 1.8-2.4 27 Slide Review 03/03/2018 Slide Review DIFF ORDERED 27 Laboratory test finding 03/03/2018 Path Review: <pending> 27 Differential-WBC Confirm 03/03/2018 Total Cells Counted 100 #CELLS 27 Band% 1 % 0-8 27 Neutrophils% 71 % 33-73 27 Lymph% 15 % Low 20-42 27 Monocyte% 11 % High 0-10 27 Eosinophil% 1 % 0-5 27 Basophil% 1 % 0-2 27 Platelet Estimate NORMAL 27 Anisocytosis 0-1+ 27 Macrocytosis 2+ 27 Basic Metabolic Panel 02/27/2018 Glucose 106 mg/dL 74-106 30 BUN 19 mg/dL High 7-18 30 Creatinine 1.7 mg/dL High 0.6-1.3 30 Glom Filtration Rate, Estimate 45 mL/min >60 30 If 54 mL/min >60 30, 31 BUN/Creat 11.1 ratio 30 Sodium 144 mmol/L 136-145 30 Potassium 4.7 mmol/L 3.5-5.1 30 Chloride 111 mmol/L High 98-107 30 Carbon Dioxide 27 mmol/L 21-32 30 Anion Gap 6 mEq/L Low 8-16 30 Calcium 8.8 mg/dL 8.5-10.1 30 Laboratory test finding 02/27/2018 Magnesium 1.6 mg/dL Low 1.8-2.4 30, 32 CBS W/Automated Diff 02/24/2018 White Blood Count 6.6 K/uL 3.4-10.5 33 Red Blood Count 3.09 M/uL Low 4.20-5.80 33 Hemoglobin 11.5 gm/dL Low 12.8-17.0 33 Hematocrit 34.2 % Low 38.0-48.0 33 Mean Cell Volume 110.7 fl High 80.0-96.0 33 Mean Corpuscular HGB 37.2 pg High 27.0-33.0 33 Mean Corpuscular HGB Conc 33.6 g/dL 31.7-36.0 33 Platelet Count 143 K/uL Low 155-360 33 Red Cell Distri Width SD 58.8 fl High 36-51 33 Red Cell Distri Width %CV 15.0 % 11.6-15.8 33 Mean Platelet Volume 11.7 fL High 6.6-10.6 33 Neut% 69.0 % 33.0-73.0 33 Lymph % 14.3 % Low 20.0-42.0 33 Brantley % 14.9 % High 0.0-10.0 33 Eo% 1.5 % 0.0-6.6 33 Bas% 0.3 % 0.0-1.1 33 Neut# 4.54 K/uL 1.8-7.0 33 Lymph # 0.94 K/uL Low 1.0-4.0 33 Brantley # 0.98 K/uL High 0.0-0.8 33 Eos # 0.10 K/uL 0.0-0.5 33 Baso # 0.02 K/uL 0.0-0.1 33 Comprehensive Metabolic Panel 02/24/2018 Glucose 106 mg/dL 74-106 33 BUN 17 mg/dL 7-18 33 Creatinine 1.7 mg/dL High 0.6-1.3 33 Glom Filtration Rate, Estimate 45 mL/min >60 33 If 54 mL/min >60 33, 34 BUN/Creat 10.0 ratio 33 Sodium 143 mmol/L 136-145 33 Potassium 4.7 mmol/L 3.5-5.1 33 Chloride 108 mmol/L High 98-107 33 Carbon Dioxide 28 mmol/L 21-32 33 Anion Gap 7 mEq/L Low 8-16 33 Calcium 8.6 mg/dL 8.5-10.1 33 Total Protein 7.1 g/dL 6.4-8.2 33 Albumin 3.3 g/dL Low 3.4-5.0 33 Globulin 3.8 g/dL 1.9-4.3 33 Alb/Glob 0.9 ratio 33 Bilirubin,Total 0.2 mg/dL 0.2-1.0 33 Sgot/Ast 12 U/L Low 15-37 33, 35 SGPT/Alt 14 U/L 12-78 33 Alkaline Phosphatase 168 U/L High 45-117 33 Laboratory test 02/24/2018 Magnesium 1.5 mg/dL Low 1.8-2.4 33 finding Slide Review 02/24/2018 Slide Review DIFF ORDERED 33 Path Review: 02/24/2018 Path Review: INDICATED,SLIDE 33, 36 <SEE NOTE> Differential-WBC 02/24/2018 Total Cells Counted 100 #CELLS 33 Confirm Band% 12 % High 0-8 33 Neutrophils% 62 % 33-73 33 Lymph% 12 % Low 20-42 33 Monocyte% 11 % High 0-10 33 Eosinophil% 3 % 0-5 33 Platelet Estimate NORMAL 33 Anisocytosis 1+ 33 Macrocytosis 2+ 33 Toxic Granulation 2+ 33 Comprehensive Metabolic Panel 02/19/2018 Glucose 102 mg/dL 74-106 37 BUN 15 mg/dL 7-18 37 Creatinine 1.4 mg/dL High 0.6-1.3 37 Glom Filtration Rate, Estimate 56 mL/min >60 37 If >60 mL/min >60 37, 38 BUN/Creat 10.7 ratio 37 Sodium 143 mmol/L 136-145 37 Potassium 4.7 mmol/L 3.5-5.1 37 Chloride 109 mmol/L High 98-107 37 Carbon Dioxide 28 mmol/L 21-32 37 Anion Gap 6 mEq/L Low 8-16 37 Calcium 8.5 mg/dL 8.5-10.1 37 Total Protein 6.8 g/dL 6.4-8.2 37 Albumin 3.0 g/dL Low 3.4-5.0 37 Globulin 3.8 g/dL 1.9-4.3 37 Alb/Glob 0.8 ratio 37 Bilirubin,Total 0.2 mg/dL 0.2-1.0 37 Sgot/Ast 10 U/L Low 15-37 37, 39 SGPT/Alt 13 U/L 12-78 37 Alkaline Phosphatase 208 U/L High 45-117 37 Basic Metabolic Panel 02/18/2018 Glucose 108 mg/dL High 74-106 40 BUN 17 mg/dL 7-18 40 Creatinine 1.6 mg/dL High 0.6-1.3 40 Glom Filtration Rate, Estimate 48 mL/min >60 40 If 58 mL/min >60 40, 41 BUN/Creat 10.6 ratio 40 Sodium 143 mmol/L 136-145 40 Potassium 4.8 mmol/L 3.5-5.1 40 Chloride 107 mmol/L 98-107 40 Carbon Dioxide 31 mmol/L 21-32 40 Anion Gap 5 mEq/L Low 8-16 40 Calcium 8.6 mg/dL 8.5-10.1 40 Laboratory test finding 02/18/2018 Magnesium 1.7 mg/dL Low 1.8-2.4 40 Basic Metabolic Panel 02/17/2018 Glucose 115 mg/dL High 74-106 42 BUN 21 mg/dL High 7-18 42 Creatinine 1.7 mg/dL High 0.6-1.3 42 Glom Filtration Rate, Estimate 45 mL/min >60 42 If 54 mL/min >60 42, 43 BUN/Creat 12.3 ratio 42 Sodium 143 mmol/L 136-145 42 Potassium 4.4 mmol/L 3.5-5.1 42 Chloride 107 mmol/L 98-107 42 Carbon Dioxide 28 mmol/L 21-32 42 Anion Gap 8 mEq/L 8-16 42 Calcium 8.3 mg/dL Low 8.5-10.1 42 Laboratory test finding 02/17/2018 Magnesium 1.4 mg/dL Low 1.8-2.4 42 Basic Metabolic Panel 02/14/2018 Glucose 86 mg/dL 74-106 44 BUN 19 mg/dL High 7-18 44 Creatinine 1.5 mg/dL High 0.6-1.3 44 Glom Filtration Rate, Estimate 52 mL/min >60 44 If >60 mL/min >60 44, 45 BUN/Creat 12.6 ratio 44 Sodium 142 mmol/L 136-145 44 Potassium 4.4 mmol/L 3.5-5.1 44 Chloride 106 mmol/L 98-107 44 Carbon Dioxide 28 mmol/L 21-32 44 Anion Gap 8 mEq/L 8-16 44 Calcium 8.7 mg/dL 8.5-10.1 44 Laboratory test finding 02/14/2018 Magnesium 1.6 mg/dL Low 1.8-2.4 44 Basic Metabolic Panel 02/13/2018 Glucose 85 mg/dL 74-106 46 BUN 23 mg/dL High 7-18 46 Creatinine 1.6 mg/dL High 0.6-1.3 46 Glom Filtration Rate, Estimate 48 mL/min >60 46 If 58 mL/min >60 46, 47 BUN/Creat 14.3 ratio 46 Sodium 142 mmol/L 136-145 46 Potassium 4.4 mmol/L 3.5-5.1 46 Chloride 107 mmol/L 98-107 46 Carbon Dioxide 26 mmol/L 21-32 46 Anion Gap 9 mEq/L 8-16 46 Calcium 8.5 mg/dL 8.5-10.1 46 Laboratory test finding 02/13/2018 Magnesium 1.4 mg/dL Low 1.8-2.4 46 CBS W/Automated Diff 02/10/2018 White Blood Count 5.7 K/uL 3.4-10.5 48 Red Blood Count 3.37 M/uL Low 4.20-5.80 48 Hemoglobin 12.2 gm/dL Low 12.8-17.0 48 Hematocrit 36.9 % Low 38.0-48.0 48 Mean Cell Volume 109.5 fl High 80.0-96.0 48 Mean Corpuscular HGB 36.2 pg High 27.0-33.0 48 Mean Corpuscular HGB Conc 33.1 g/dL 31.7-36.0 48 Platelet Count 327 K/uL 155-360 48 Red Cell Distri Width SD 64.0 fl High 36-51 48 Red Cell Distri Width %CV 16.3 % High 11.6-15.8 48 Mean Platelet Volume 9.7 fL 6.6-10.6 48 Neut% 68.4 % 33.0-73.0 48 Lymph % 14.2 % Low 20.0-42.0 48 Brantley % 14.7 % High 0.0-10.0 48 Eo% 1.6 % 0.0-6.6 48 Bas% 1.1 % 0.0-1.1 48 Neut# 3.87 K/uL 1.8-7.0 48 Lymph # 0.80 K/uL Low 1.0-4.0 48 Brantley # 0.83 K/uL High 0.0-0.8 48 Eos # 0.09 K/uL 0.0-0.5 48 Baso # 0.06 K/uL 0.0-0.1 48 Comprehensive Metabolic Panel 02/10/2018 Glucose 88 mg/dL 74-106 48 BUN 21 mg/dL High 7-18 48 Creatinine 1.4 mg/dL High 0.6-1.3 48 Glom Filtration Rate, Estimate 56 mL/min >60 48 If >60 mL/min >60 48, 49 BUN/Creat 15.0 ratio 48 Sodium 143 mmol/L 136-145 48 Potassium 4.4 mmol/L 3.5-5.1 48 Chloride 110 mmol/L High 98-107 48 Carbon Dioxide 28 mmol/L 21-32 48 Anion Gap 5 mEq/L Low 8-16 48 Calcium 8.6 mg/dL 8.5-10.1 48 Total Protein 7.3 g/dL 6.4-8.2 48 Albumin 3.1 g/dL Low 3.4-5.0 48 Globulin 4.2 g/dL 1.9-4.3 48 Alb/Glob 0.7 ratio 48 Bilirubin,Total 0.1 mg/dL Low 0.2-1.0 48 Sgot/Ast 10 U/L Low 15-37 48, 50 SGPT/Alt 11 U/L Low 12-78 48, 51 Alkaline Phosphatase 141 U/L High 45-117 48 Laboratory test finding 02/10/2018 Magnesium 1.6 mg/dL Low 1.8-2.4 48 Slide Review . 48, 52 CBS W/Automated Diff 01/20/2018 White Blood Count 5.3 K/uL 3.4-10.5 53 Red Blood Count 3.22 M/uL Low 4.20-5.80 53 Hemoglobin 11.6 gm/dL Low 12.8-17.0 53 Hematocrit 34.3 % Low 38.0-48.0 53 Mean Cell Volume 106.5 fl High 80.0-96.0 53 Mean Corpuscular HGB 36.0 pg High 27.0-33.0 53 Mean Corpuscular HGB Conc 33.8 g/dL 31.7-36.0 53 Platelet Count 223 K/uL 155-360 53 Red Cell Distri Width SD 67.1 fl High 36-51 53 Red Cell Distri Width %CV 17.2 % High 11.6-15.8 53 Mean Platelet Volume 10.4 fL 6.6-10.6 53 Neut% 68.7 % 33.0-73.0 53 Lymph % 11.6 % Low 20.0-42.0 53 Brantley % 17.8 % High 0.0-10.0 53 Eo% 1.3 % 0.0-6.6 53 Bas% 0.6 % 0.0-1.1 53 Neut# 3.62 K/uL 1.8-7.0 53 Lymph # 0.61 K/uL Low 1.0-4.0 53 Brantley # 0.94 K/uL High 0.0-0.8 53 Eos # 0.07 K/uL 0.0-0.5 53 Baso # 0.03 K/uL 0.0-0.1 53 Xray 01/20/2018 PET Scan <pending> Comprehensive Metabolic Panel 01/20/2018 Glucose 68 mg/dL Low 74-106 53 BUN 18 mg/dL 7-18 53 Creatinine 1.3 mg/dL 0.6-1.3 53 Glom Filtration Rate, Estimate >60 mL/min >60 53 If >60 mL/min >60 53, 54 BUN/Creat 13.8 ratio 53 Sodium 142 mmol/L 136-145 53 Potassium 4.4 mmol/L 3.5-5.1 53 Chloride 108 mmol/L High 98-107 53 Carbon Dioxide 28 mmol/L 21-32 53 Anion Gap 6 mEq/L Low 8-16 53 Calcium 8.3 mg/dL Low 8.5-10.1 53 Total Protein 6.8 g/dL 6.4-8.2 53 Albumin 3.2 g/dL Low 3.4-5.0 53 Globulin 3.6 g/dL 1.9-4.3 53 Alb/Glob 0.9 ratio 53 Bilirubin,Total 0.3 mg/dL 0.2-1.0 53 Sgot/Ast 15 U/L 15-37 53 SGPT/Alt 16 U/L 12-78 53 Alkaline Phosphatase 121 U/L High 45-117 53 Laboratory test finding 01/20/2018 Magnesium 1.8 mg/dL 1.8-2.4 53, 55 Laboratory test finding 01/15/2018 Point of Care Glucose 87 mg/dL 70-100 56 CBS W/Automated Diff 12/30/2017 White Blood Count 8.0 K/uL 3.4-10.5 57 Red Blood Count 3.61 M/uL Low 4.20-5.80 57 Hemoglobin 12.5 gm/dL Low 12.8-17.0 57 Hematocrit 37.9 % Low 38.0-48.0 57 Mean Cell Volume 105.0 fl High 80.0-96.0 57 Mean Corpuscular HGB 34.6 pg High 27.0-33.0 57 Mean Corpuscular HGB Conc 33.0 g/dL 31.7-36.0 57 Platelet Count 314 K/uL 155-360 57 Red Cell Distri Width SD 62.3 fl High 36-51 57 Red Cell Distri Width %CV 16.7 % High 11.6-15.8 57 Mean Platelet Volume 10.1 fL 6.6-10.6 57 Neut% 73.9 % High 33.0-73.0 57 Lymph % 12.4 % Low 20.0-42.0 57 Brantley % 11.6 % High 0.0-10.0 57 Eo% 1.5 % 0.0-6.6 57 Bas% 0.6 % 0.0-1.1 57 Neut# 5.92 K/uL 1.8-7.0 57 Lymph # 0.99 K/uL Low 1.0-4.0 57 Brantley # 0.93 K/uL High 0.0-0.8 57 Eos # 0.12 K/uL 0.0-0.5 57 Baso # 0.05 K/uL 0.0-0.1 57 Comprehensive Metabolic Panel 12/30/2017 Glucose 117 mg/dL High 74-106 57 BUN 21 mg/dL High 7-18 57 Creatinine 1.3 mg/dL 0.6-1.3 57 Glom Filtration Rate, Estimate >60 mL/min >60 57 If >60 mL/min >60 57, 58 BUN/Creat 16.1 ratio 57 Sodium 141 mmol/L 136-145 57 Potassium 3.8 mmol/L 3.5-5.1 57 Chloride 107 mmol/L 98-107 57 Carbon Dioxide 26 mmol/L 21-32 57 Anion Gap 8 mEq/L 8-16 57 Calcium 8.6 mg/dL 8.5-10.1 57 Total Protein 7.1 g/dL 6.4-8.2 57 Albumin 3.2 g/dL Low 3.4-5.0 57 Globulin 3.9 g/dL 1.9-4.3 57 Alb/Glob 0.8 ratio 57 Bilirubin,Total 0.3 mg/dL 0.2-1.0 57 Sgot/Ast 11 U/L Low 15-37 57, 59 SGPT/Alt 13 U/L 12-78 57 Alkaline Phosphatase 132 U/L High 45-117 57 Laboratory test finding 12/30/2017 Magnesium 1.7 mg/dL Low 1.8-2.4 57 Slide Review DIFF ORDERED 57 Differential-WBC Confirm 12/30/2017 Total Cells Counted 100 #CELLS 57 Neutrophils% 77 % High 33-73 57 Lymph% 13 % Low 20-42 57 Atypical Lymph% 2 % 0-7 57 Monocyte% 7 % 0-10 57 Eosinophil% 1 % 0-5 57 Platelet Estimate NORMAL 57 RBC Morphology NORMAL 57 Differential Comment FEW PLATELET CLU <SEE NOTE> 57, 60 CBS W/Automated Diff 12/09/2017 White Blood Count 9.0 K/uL 3.4-10.5 61 Red Blood Count 3.96 M/uL Low 4.20-5.80 61 Hemoglobin 13.6 gm/dL 12.8-17.0 61 Hematocrit 40.6 % 38.0-48.0 61 Mean Cell Volume 102.5 fl High 80.0-96.0 61 Mean Corpuscular HGB 34.3 pg High 27.0-33.0 61 Mean Corpuscular HGB Conc 33.5 g/dL 31.7-36.0 61 Platelet Count 361 K/uL High 155-360 61 Red Cell Distri Width SD 55.3 fl High 36-51 61 Red Cell Distri Width %CV 15.2 % 11.6-15.8 61 Mean Platelet Volume 10.1 fL 6.6-10.6 61 Neut% 77.3 % High 33.0-73.0 61 Lymph % 9.8 % Low 20.0-42.0 61 Brantley % 11.1 % High 0.0-10.0 61 Eo% 1.4 % 0.0-6.6 61 Bas% 0.4 % 0.0-1.1 61 Neut# 6.94 K/uL 1.8-7.0 61 Lymph # 0.88 K/uL Low 1.0-4.0 61 Brantley # 1.00 K/uL High 0.0-0.8 61 Eos # 0.13 K/uL 0.0-0.5 61 Baso # 0.04 K/uL 0.0-0.1 61 Comprehensive Metabolic Panel 12/09/2017 Glucose 93 mg/dL 74-106 61 BUN 15 mg/dL 7-18 61 Creatinine 1.2 mg/dL 0.6-1.3 61 Glom Filtration Rate, Estimate >60 mL/min >60 61 If >60 mL/min >60 61, 62 BUN/Creat 12.5 ratio 61 Sodium 141 mmol/L 136-145 61 Potassium 4.0 mmol/L 3.5-5.1 61 Chloride 106 mmol/L 98-107 61 Carbon Dioxide 29 mmol/L 21-32 61 Anion Gap 6 mEq/L Low 8-16 61 Calcium 8.7 mg/dL 8.5-10.1 61 Total Protein 7.2 g/dL 6.4-8.2 61 Albumin 3.0 g/dL Low 3.4-5.0 61 Globulin 4.2 g/dL 1.9-4.3 61 Alb/Glob 0.7 ratio 61 Bilirubin,Total 0.2 mg/dL 0.2-1.0 61 Sgot/Ast 12 U/L Low 15-37 61, 63 SGPT/Alt 11 U/L Low 12-78 61, 64 Alkaline Phosphatase 131 U/L High 45-117 61 Laboratory test finding 12/09/2017 Magnesium 2.0 mg/dL 1.8-2.4 61 Slide Review (SEE NOTE) 61, 65 Xray 11/28/2017 CT, Chest, With Contrast Materials <pending> CT, Abdomen & Pelvis W Contrast <pending> CBS W/Automated Diff 11/25/2017 White Blood Count 18.3 K/uL High 3.4-10.5 66 Red Blood Count 4.13 M/uL Low 4.20-5.80 66 Hemoglobin 13.7 gm/dL 12.8-17.0 66 Hematocrit 41.9 % 38.0-48.0 66 Mean Cell Volume 101.5 fl High 80.0-96.0 66 Mean Corpuscular HGB 33.2 pg High 27.0-33.0 66 Mean Corpuscular HGB Conc 32.7 g/dL 31.7-36.0 66 Platelet Count 275 K/uL 155-360 66 Red Cell Distri Width SD 50.2 fl 36-51 66 Red Cell Distri Width %CV 14.1 % 11.6-15.8 66 Mean Platelet Volume 11.4 fL High 6.6-10.6 66 Neut% 84.3 % High 33.0-73.0 66 Lymph % 4.3 % Low 20.0-42.0 66 Brantley % 10.6 % High 0.0-10.0 66 Eo% 0.5 % 0.0-6.6 66 Bas% 0.3 % 0.0-1.1 66 Neut# 15.42 K/uL High 1.8-7.0 66 Lymph # 0.79 K/uL Low 1.0-4.0 66 Brantley # 1.95 K/uL High 0.0-0.8 66 Eos # 0.10 K/uL 0.0-0.5 66 Baso # 0.05 K/uL 0.0-0.1 66 Comprehensive Metabolic Panel 11/25/2017 Glucose 88 mg/dL 74-106 66 BUN 11 mg/dL 7-18 66 Creatinine 1.2 mg/dL 0.6-1.3 66 Glom Filtration Rate, Estimate >60 mL/min >60 66 If >60 mL/min >60 66, 67 BUN/Creat 9.1 ratio 66 Sodium 140 mmol/L 136-145 66 Potassium 4.1 mmol/L 3.5-5.1 66 Chloride 100 mmol/L 98-107 66 Carbon Dioxide 30 mmol/L 21-32 66 Anion Gap 10 mEq/L 8-16 66 Calcium 8.6 mg/dL 8.5-10.1 66 Total Protein 7.4 g/dL 6.4-8.2 66 Albumin 3.1 g/dL Low 3.4-5.0 66 Globulin 4.3 g/dL 1.9-4.3 66 Alb/Glob 0.7 ratio 66 Bilirubin,Total 0.3 mg/dL 0.2-1.0 66 Sgot/Ast 16 U/L 15-37 66 SGPT/Alt 20 U/L 12-78 66 Alkaline Phosphatase 234 U/L High 45-117 66 Slide Review 11/25/2017 Slide Review DIFF ORDERED 66 Differential-WBC Confirm 11/25/2017 Total Cells Counted 100 #CELLS 66 Band% 6 % 0-8 66 Neutrophils% 78 % High 33-73 66 Lymph% 5 % Low 20-42 66 Monocyte% 9 % 0-10 66 Eosinophil% 2 % 0-5 66 Platelet Estimate NORMAL 66 Macrocytosis 0-1+ 66 Dohle Bodies 0-1+ 66 CBS W/Automated Diff 11/18/2017 White Blood Count 7.1 K/uL 3.4-10.5 68 Red Blood Count 4.23 M/uL 4.20-5.80 68 Hemoglobin 13.9 gm/dL 12.8-17.0 68 Hematocrit 42.3 % 38.0-48.0 68 Mean Cell Volume 100.0 fl High 80.0-96.0 68 Mean Corpuscular HGB 32.9 pg 27.0-33.0 68 Mean Corpuscular HGB Conc 32.9 g/dL 31.7-36.0 68 Platelet Count 427 K/uL High 155-360 68 Red Cell Distri Width SD 47.3 fl 36-51 68 Red Cell Distri Width %CV 13.6 % 11.6-15.8 68 Mean Platelet Volume 9.7 fL 6.6-10.6 68 Neut% 75.3 % High 33.0-73.0 68 Lymph % 11.2 % Low 20.0-42.0 68 Brantley % 12.0 % High 0.0-10.0 68 Eo% 0.7 % 0.0-6.6 68 Bas% 0.8 % 0.0-1.1 68 Neut# 5.33 K/uL 1.8-7.0 68 Lymph # 0.79 K/uL Low 1.0-4.0 68 Brantley # 0.85 K/uL High 0.0-0.8 68 Eos # 0.05 K/uL 0.0-0.5 68 Baso # 0.06 K/uL 0.0-0.1 68 Comprehensive Metabolic Panel 11/18/2017 Glucose 83 mg/dL 74-106 68 BUN 13 mg/dL 7-18 68 Creatinine 1.0 mg/dL 0.6-1.3 68 Glom Filtration Rate, Estimate >60 mL/min >60 68 If >60 mL/min >60 68, 69 BUN/Creat 13.0 ratio 68 Sodium 141 mmol/L 136-145 68 Potassium 4.5 mmol/L 3.5-5.1 68 Chloride 108 mmol/L High 98-107 68 Carbon Dioxide 27 mmol/L 21-32 68 Anion Gap 6 mEq/L Low 8-16 68 Calcium 8.8 mg/dL 8.5-10.1 68 Total Protein 7.1 g/dL 6.4-8.2 68 Albumin 2.7 g/dL Low 3.4-5.0 68 Globulin 4.4 g/dL High 1.9-4.3 68 Alb/Glob 0.6 ratio 68 Bilirubin,Total 0.2 mg/dL 0.2-1.0 68 Sgot/Ast 15 U/L 15-37 68 SGPT/Alt 14 U/L 12-78 68 Alkaline Phosphatase 133 U/L High 45-117 68 Laboratory test finding 11/18/2017 Magnesium 1.7 mg/dL Low 1.8-2.4 68 Slide Review (SEE NOTE) 68, 70 Comprehensive Metabolic Panel 10/30/2017 Glucose 105 mg/dL 74-106 71 BUN 13 mg/dL 7-18 71 Creatinine 1.0 mg/dL 0.6-1.3 71 Glom Filtration Rate, Estimate >60 mL/min >60 71 If >60 mL/min >60 71, 72 BUN/Creat 13.0 ratio 71 Sodium 135 mmol/L Low 136-145 71 Potassium 3.6 mmol/L 3.5-5.1 71 Chloride 101 mmol/L 98-107 71 Carbon Dioxide 27 mmol/L 21-32 71 Anion Gap 7 mEq/L Low 8-16 71 Calcium 9.1 mg/dL 8.5-10.1 71 Total Protein 7.3 g/dL 6.4-8.2 71 Albumin 3.0 g/dL Low 3.4-5.0 71 Globulin 4.3 g/dL 1.9-4.3 71 Alb/Glob 0.7 ratio 71 Bilirubin,Total 0.5 mg/dL 0.2-1.0 71 Sgot/Ast 17 U/L 15-37 71 SGPT/Alt 37 U/L 12-78 71 Alkaline Phosphatase 203 U/L High 45-117 71 Slide Review 10/30/2017 Slide Review DIFF ORDERED 71 Differential-WBC Confirm 10/30/2017 Total Cells Counted 100 #CELLS 71 Band% 15 % High 0-8 71 Neutrophils% 67 % 33-73 71 Lymph% 5 % Low 20-42 71 Atypical Lymph% 2 % 0-7 71 Monocyte% 10 % 0-10 71 Eosinophil% 1 % 0-5 71 Platelet Estimate NORMAL 71 RBC Morphology NORMAL 71 Differential Comment LARGE PLATELETS <SEE NOTE> 71, 73 CBS W/Automated Diff 10/30/2017 White Blood Count 14.8 K/uL High 3.4-10.5 71 Red Blood Count 4.69 M/uL 4.20-5.80 71 Hemoglobin 15.5 gm/dL 12.8-17.0 71 Hematocrit 45.3 % 38.0-48.0 71 Mean Cell Volume 96.6 fl High 80.0-96.0 71 Mean Corpuscular HGB 33.0 pg 27.0-33.0 71 Mean Corpuscular HGB Conc 34.2 g/dL 31.7-36.0 71 Platelet Count 276 K/uL 155-360 71 Red Cell Distri Width SD 43.0 fl 36-51 71 Red Cell Distri Width %CV 12.4 % 11.6-15.8 71 Mean Platelet Volume 10.8 fL High 6.6-10.6 71 Neut% 84.3 % High 33.0-73.0 71 Lymph % 5.4 % Low 20.0-42.0 71 Brantley % 9.3 % 0.0-10.0 71 Eo% 0.8 % 0.0-6.6 71 Bas% 0.2 % 0.0-1.1 71 Neut# 12.49 K/uL High 1.8-7.0 71 Lymph # 0.80 K/uL Low 1.0-4.0 71 Brantley # 1.38 K/uL High 0.0-0.8 71 Eos # 0.12 K/uL 0.0-0.5 71 Baso # 0.03 K/uL 0.0-0.1 71 CBS W/Automated Diff 10/25/2017 White Blood Count 6.9 K/uL 3.4-10.5 74 Red Blood Count 4.54 M/uL 4.20-5.80 74 Hemoglobin 15.2 gm/dL 12.8-17.0 74 Hematocrit 44.8 % 38.0-48.0 74 Mean Cell Volume 98.7 fl High 80.0-96.0 74 Mean Corpuscular HGB 33.5 pg High 27.0-33.0 74 Mean Corpuscular HGB Conc 33.9 g/dL 31.7-36.0 74 Platelet Count 374 K/uL High 155-360 74 Red Cell Distri Width SD 44.7 fl 36-51 74 Red Cell Distri Width %CV 12.5 % 11.6-15.8 74 Mean Platelet Volume 9.6 fL 6.6-10.6 74 Neut% 72.9 % 33.0-73.0 74 Lymph % 10.8 % Low 20.0-42.0 74 Brantley % 12.4 % High 0.0-10.0 74 Eo% 3.2 % 0.0-6.6 74 Bas% 0.7 % 0.0-1.1 74 Neut# 5.06 K/uL 1.8-7.0 74 Lymph # 0.75 K/uL Low 1.0-4.0 74 Brantley # 0.86 K/uL High 0.0-0.8 74 Eos # 0.22 K/uL 0.0-0.5 74 Baso # 0.05 K/uL 0.0-0.1 74 Comprehensive Metabolic Panel 10/25/2017 Glucose 92 mg/dL 74-106 74 BUN 8 mg/dL 7-18 74 Creatinine 0.9 mg/dL 0.6-1.3 74 Glom Filtration Rate, Estimate >60 mL/min >60 74 If >60 mL/min >60 74, 75 BUN/Creat 8.8 ratio 74 Sodium 139 mmol/L 136-145 74 Potassium 4.0 mmol/L 3.5-5.1 74 Chloride 104 mmol/L 98-107 74 Carbon Dioxide 28 mmol/L 21-32 74 Anion Gap 7 mEq/L Low 8-16 74 Calcium 8.9 mg/dL 8.5-10.1 74 Total Protein 7.0 g/dL 6.4-8.2 74 Albumin 2.7 g/dL Low 3.4-5.0 74 Globulin 4.3 g/dL 1.9-4.3 74 Alb/Glob 0.6 ratio 74 Bilirubin,Total 0.3 mg/dL 0.2-1.0 74 Sgot/Ast 18 U/L 15-37 74 SGPT/Alt 21 U/L 12-78 74 Alkaline Phosphatase 149 U/L High 45-117 74 Laboratory test finding 10/25/2017 Magnesium 1.8 mg/dL 1.8-2.4 74 Protime 10/15/2017 Protime 12.6 seconds 12.0-14.4 76 Inr 0.9 0.9-1.1 76, 77 Laboratory test finding 10/03/2017 Point of Care 97 mg/dL 70-100 78 Glucose Aot Request 10/02/2017 Aot Request Test(s) added 79, 80 Tests to be added: liver function t <SEE NOTE> 79, 81 Laboratory test finding 10/02/2017 Lipase 97 U/L 56-289 79 Troponin-I < 0.015 ng/mL 79, 82 Comprehensive Metabolic Panel 10/02/2017 Glucose 91 mg/dL 74-106 79 BUN 10 mg/dL 7-18 79 Creatinine 0.8 mg/dL 0.6-1.3 79 Glom Filtration Rate, Estimate >60 mL/min >60 79 If >60 mL/min >60 79, 83 BUN/Creat 12.5 ratio 79 Sodium 141 mmol/L 136-145 79 Potassium 4.0 mmol/L 3.5-5.1 79 Chloride 108 mmol/L High 98-107 79 Carbon Dioxide 29 mmol/L 21-32 79 Anion Gap 4 mEq/L Low 8-16 79 Calcium 8.5 mg/dL 8.5-10.1 79 Liver Function Tests 10/02/2017 Total Protein 6.8 g/dL 6.4-8.2 79 Albumin 2.6 g/dL Low 3.4-5.0 79 Globulin 4.2 g/dL 1.9-4.3 79 Alb/Glob 0.6 ratio 79 Bilirubin,Total 0.4 mg/dL 0.2-1.0 79 Bilirubin,Direct < 0.1 mg/dL 0.0-0.2 79 Bilirubin,Indirect 0.3 mg/dL 0.0-0.9 79 Sgot/Ast 11 U/L Low 15-37 79, 84 SGPT/Alt 16 U/L 12-78 79 Alkaline Phosphatase 106 U/L 45-117 79 CBC 10/02/2017 White Blood Count 4.8 K/uL 3.4-10.5 79 Red Blood Count 4.34 M/uL 4.20-5.80 79 Hemoglobin 14.4 gm/dL 12.8-17.0 79 Hematocrit 43.7 % 38.0-48.0 79 Mean Cell Volume 100.7 fl High 80.0-96.0 79 Mean Corpuscular HGB 33.2 pg High 27.0-33.0 79 Mean Corpuscular HGB Conc 33.0 g/dL 31.7-36.0 79 Platelet Count 231 K/uL 155-360 79 Red Cell Distri Width %CV 13.0 % 11.6-15.8 79 Mean Platelet Volume 10.4 fL 6.6-10.6 79 CBC 10/01/2017 White Blood Count 7.8 K/uL 3.4-10.5 79 Red Blood Count 4.45 M/uL 4.20-5.80 79 Hemoglobin 14.9 gm/dL 12.8-17.0 79 Hematocrit 44.0 % 38.0-48.0 79 Mean Cell Volume 98.9 fl High 80.0-96.0 79 Mean Corpuscular HGB 33.5 pg High 27.0-33.0 79 Mean Corpuscular HGB Conc 33.9 g/dL 31.7-36.0 79 Platelet Count 305 K/uL 155-360 79 Red Cell Distri Width %CV 12.6 % 11.6-15.8 79 Mean Platelet Volume 11.0 fL High 6.6-10.6 79 Basic Metabolic Panel 10/01/2017 Glucose 129 mg/dL High 74-106 79 BUN 13 mg/dL 7-18 79 Creatinine 0.9 mg/dL 0.6-1.3 79 Glom Filtration Rate, Estimate >60 mL/min >60 79 If >60 mL/min >60 79, 85 BUN/Creat 14.4 ratio 79 Sodium 139 mmol/L 136-145 79 Potassium 4.3 mmol/L 3.5-5.1 79 Chloride 106 mmol/L 98-107 79 Carbon Dioxide 25 mmol/L 21-32 79 Anion Gap 8 mEq/L 8-16 79 Calcium 8.8 mg/dL 8.5-10.1 79 Liver Function Tests 10/01/2017 Total Protein 7.0 g/dL 6.4-8.2 79 Albumin 2.8 g/dL Low 3.4-5.0 79 Globulin 4.2 g/dL 1.9-4.3 79 Alb/Glob 0.7 ratio 79 Bilirubin,Total 0.5 mg/dL 0.2-1.0 79 Bilirubin,Direct 0.1 mg/dL 0.0-0.2 79 Bilirubin,Indirect 0.4 mg/dL 0.0-0.9 79 Sgot/Ast 15 U/L 15-37 79 SGPT/Alt 20 U/L 12-78 79 Alkaline Phosphatase 110 U/L 45-117 79 Aot Request 10/01/2017 Aot Request Test(s) added 79, 86 Tests to be added: LFTS 79 Laboratory test 09/30/2017 Troponin-I < 0.015 ng/mL 79, 87 finding Act Partial Thrombo 09/12/2017 Act Partial Thrombo 32.3 seconds 23.4- 35.0 88 Time Time Anticoagulant Therapy? NO 88 Protime 09/12/2017 Protime 12.8 seconds 12.0-14.4 88 Inr 1.0 0.9-1.1 88, 89 Anticoagulant Therapy? NO 88 Fluid Culture W/ Gram 09/12/2017 Gram Stain MODERATE WHITE B <SEE 90, 91 Stain NOTE> Gram Stain NO ORGANISMS SEE <SEE NOTE> 90, 92 Gram Stain FEW EPITHELIAL C <SEE NOTE> 90, 93 Fluid Culture NO GROWTH: FINAL <SEE NOTE> 90, 94 Pleural FLD cc/Diff 09/12/2017 Color RED 90 Pleural FLD Appearance BLOODY 90 Pleural FLD WBC 1720 /uL High 0-1000 90 Pleural FLD RBC 20259 /uL High 0-32120 90 Pleural FLD Poly 23 % 0-25 90 Pleural Fluid Lymphs 40 % 90 Pleural Fluid Monocytes 3 % 90 Pleural Fluid Eosinophils 3 % 90 Pleural FLD Other Cell 31 % 90, 95 Pleural FLD Diff Comment . 90, 96 Laboratory test 09/12/2017 Adenosine Deaminase,Pleural 2.1 U/L 0.0-9.4 90, 97 finding Pleural FLD Glucose 40 90, 98 Pleural FLD LDH 369 IU 90, 99 Pleural Fluid pH 7.4 Not Estab. 90, 100 Pleural FLD Total Protein 4.5 g/dL 90, 101 WBC # Bld Auto 08/29/2017 WBC # Bld Auto 5.7 3.4-10.5 Anion Gap SerPl-sCnc 08/29/2017 Anion Gap SerPl-sCnc 7 Low 8-16 Automated blood 08/29/2017 Automated blood 0.03 0.0-0.1 basophil count basophil count (count/volume) (count/volume) Automated blood 08/29/2017 Automated blood 0.09 0.0-0.5 eosinophil count eosinophil count Automated blood 08/29/2017 Automated blood 46.2 38.0-48.0 hematocrit (volume hematocrit (volume fraction) fraction) Automated blood 08/29/2017 Automated blood 0.75 Low 1.0-4.0 lymphocyte count lymphocyte count (number/volume) (number/volume) Automated blood 08/29/2017 Automated blood 271 155-360 platelet count platelet count Automated blood 08/29/2017 Automated blood 10.5 6.6-10.6 platelet mean volume platelet mean volume measurement measurement Automated erythrocyte 08/29/2017 Automated erythrocyte 33.3 High 27.0- 33.0 mean corpuscular mean corpuscular hemoglobin hemoglobin (mass per erythrocyte) Automated erythrocyte 08/29/2017 Automated erythrocyte 33.1 31.7-36.0 mean corpuscular mean corpuscular hemoglobin hemoglobin concentration measurement (mass/volume) Automated erythrocyte 08/29/2017 Automated erythrocyte 100.7 High 80.0- 96.0 mean corpuscular volume mean corpuscular volume BUN/Creat SerPl 08/29/2017 BUN/Creat SerPl 8.1 Basophils/leuk NFr Bld 08/29/2017 Basophils/leuk NFr Bld 0.5 0.0-1.1 Auto Auto Blood erythrocytes 08/29/2017 Blood erythrocytes 4.59 4.20-5.80 automated count automated count (number/volume) (number/volume) Blood hemoglobin 08/29/2017 Blood hemoglobin 15.3 12.8-17.0 measurement measurement (mass/volume) (mass/volume) Blood monocytes 08/29/2017 Blood monocytes 0.56 0.0-0.8 automated count automated count (number/volume) (number/volume) Chloride SerPl-sCnc 08/29/2017 Chloride SerPl-sCnc 104 98-107 Eosinophil/leuk NFr Bld 08/29/2017 Eosinophil/leuk NFr 1.6 0.0-6.6 Auto Bld Auto Lymphocytes/leuk NFr 08/29/2017 Lymphocytes/leuk NFr 13.3 Low [...] 08/29/2017 Serum sodium 138 136-145 measurement measurement Anaerobic blood culture 08/28/2017 Anaerobic blood No Growth culture Aerobic blood culture 08/28/2017 Aerobic blood culture No Growth Bacteria identification 08/27/2017 Bacteria No Growth by [...] poor plasma in platelet poor plasma 1 FEVER 2 Note: Persistent reduction for 3 months or more in an eGFR <60 mL/min/1.73 m2 defines CKD. Patients with eGFR values >/=60 mL/min/1.73 m2 may also have CKD if evidence of persistent proteinuria is present. The original MDRD equation for estimated GFR is not valid for patients less than 18 years of age. Additional information may be found at [email or web address]. 3 Tests: CRP to admission labs Instructions: 4 CRP to admission labs 5 NO GROWTH: FINAL REPORT 6 NO GROWTH: FINAL REPORT 7 NO GROWTH: FINAL REPORT 8 NO GROWTH: FINAL REPORT 9 D64.9 10 Note: Persistent reduction for 3 months or more in an eGFR <60 mL/min/1.73 m2 defines CKD. Patients with eGFR values >/=60 mL/min/1.73 m2 may also have CKD if evidence of persistent proteinuria is present. The original MDRD equation for estimated GFR is not valid for patients less than 18 years of age. Additional information may be found at [email or web address]. 11 [employer] Worker: [id number] 12 C45.0 J91.0 E86.0 E53.9 Z51.11 13 Note: Persistent reduction for 3 months or more in an eGFR <60 mL/min/1.73 m2 defines CKD. Patients with eGFR values >/=60 mL/min/1.73 m2 may also have CKD if evidence of persistent proteinuria is present. The original MDRD equation for estimated GFR is not valid for patients less than 18 years of age. Additional information may be found at [email or web address]. 14 Note: Persistent reduction for 3 months or more in an eGFR <60 mL/min/1.73 m2 defines CKD. Patients with eGFR values >/=60 mL/min/1.73 m2 may also have CKD if evidence of persistent proteinuria is present. The original MDRD equation for estimated GFR is not valid for patients less than 18 years of age. Additional information may be found at [email or web address]. 15 Values below the stated reference ranges of AST and ALT can be seen in normal populations. Clinical correlation is suggested. 16 Instrument flagged sample for slide review. Less than 10% Bands seen, no other immature WBC's seen. Platelet estimate=NORMAL 17 Z51.11 C45.0 J91.0E86.0 E53.9 18 Note: Persistent reduction for 3 months or more in an eGFR <60 mL/min/1.73 m2 defines CKD. Patients with eGFR values >/=60 mL/min/1.73 m2 may also have CKD if evidence of persistent proteinuria is present. The original MDRD equation for estimated GFR is not valid for patients less than 18 years of age. Additional information may be found at [email or web address]. 19 DRAWN FROM PORT 20 DRAWN FROM PORT 21 C45.0 E83.42 N17.9 22 Note: Persistent reduction for 3 months or more in an eGFR <60 mL/min/1.73 m2 defines CKD. Patients with eGFR values >/=60 mL/min/1.73 m2 may also have CKD if evidence of persistent proteinuria is present. The original MDRD equation for estimated GFR is not valid for patients less than 18 years of age. Additional information may be found at [email or web address]. 23 STAT PER JIM DP CMP VS BMP 24 Note: Persistent reduction for 3 months or more in an eGFR <60 mL/min/1.73 m2 defines CKD. Patients with eGFR values >/=60 mL/min/1.73 m2 may also have CKD if evidence of persistent proteinuria is present. The original MDRD equation for estimated GFR is not valid for patients less than 18 years of age. Additional information may be found at [email or web address]. 25 Z51.11 C45.0 J91.0 E86.0 E53.9 26 CALLED WBC TO FLORENCIA Silva AT 1020 03/06/18 by [facility].LIONEL 27 C45.0 E86.0 J91.0 Z51.11 E53.9 28 Note: Persistent reduction for 3 months or more in an eGFR <60 mL/min/1.73 m2 defines CKD. Patients with eGFR values >/=60 mL/min/1.73 m2 may also have CKD if evidence of persistent proteinuria is present. The original MDRD equation for estimated GFR is not valid for patients less than 18 years of age. Additional information may be found at [email or web address]. 29 Values below the stated reference ranges of AST and ALT can be seen in normal populations. Clinical correlation is suggested. 30 C45.0 J91.0 Z51.11 E53.9 D64.9 31 Note: Persistent reduction for 3 months or more in an eGFR <60 mL/min/1.73 m2 defines CKD. Patients with eGFR values >/=60 mL/min/1.73 m2 may also have CKD if evidence of persistent proteinuria is present. The original MDRD equation for estimated GFR is not valid for patients less than 18 years of age. Additional information may be found at [email or web address]. 32 STAT JESIKA PEPE PH [phone] FAX [phone] PORT DRAW 33 C45.0 E86.0 E83.42 Z51.11 R11.0 E53.9 D64.9 34 Note: Persistent reduction for 3 months or more in an eGFR <60 mL/min/1.73 m2 defines CKD. Patients with eGFR values >/=60 mL/min/1.73 m2 may also have CKD if evidence of persistent proteinuria is present. The original MDRD equation for estimated GFR is not valid for patients less than 18 years of age. Additional information may be found at [email or web address]. 35 Values below the stated reference ranges of AST and ALT can be seen in normal populations. Clinical correlation is suggested. 36 INDICATED,SLIDE SENT Hematology Consultation Final Report Case# [id number] Review of peripheral blood smear shows very [...] 8:24 PM, Report electronically signed Performed at: [facility] [id number] [place] [address] 03/01/18 1126: PATH REVIEW: previously reported as: INDICATED,SLIDE SENT Amended result called to: N A - 03/01/18 at 1126 37 C45.0 J91.0 E86.0 Z51.11 E53.9 D64.9 38 Note: Persistent reduction [...] information may be found at [email or web address]. 39 Values below the stated reference ranges of AST and ALT can be seen in normal populations. Clinical correlation is suggested. 40 C45.0 E86.0 Z51.11 D64.9 41 Note: Persistent reduction for 3 months or more in an eGFR <60 mL/min/1.73 m2 defines CKD. Patients with eGFR values >/=60 mL/min/1.73 m2 may also have CKD if evidence of persistent proteinuria is present. The original MDRD equation for estimated GFR is not valid for patients less than 18 years of age. Additional information may be found at [email or web address]. 42 C45.0 E86.0 Z51.11 E53.9 D64.9 43 Note: Persistent reduction for 3 months or more in an eGFR <60 mL/min/1.73 m2 defines CKD. Patients with eGFR values >/=60 mL/min/1.73 m2 may also have CKD if evidence of persistent proteinuria is present. The original MDRD equation for estimated GFR is not valid for patients less than 18 years of age. Additional information may be found at [email or web address]. 44 C45.0 J91.0 E86.0 Z51.11 E53.9 D64.9 [...] information may be found at [email or web address]. 46 C45.0 J91.0 E86.0 Z51.11 R11.0 47 Note: Persistent reduction for 3 months or more in an eGFR <60 mL/min/1.73 m2 defines CKD. Patients with eGFR values >/=60 mL/min/1.73 m2 may also have CKD if evidence of persistent proteinuria is present. The original MDRD equation for estimated GFR is not valid for patients less than 18 years of age. Additional information may be found at [email or web address]. 48 C45.0 J91.0 E86.0 Z51.11 E53.9 D64.9 49 Note: Persistent reduction for 3 months or more in an eGFR <60 mL/min/1.73 m2 defines CKD. Patients with eGFR values >/=60 mL/min/1.73 m2 may also have CKD if evidence of persistent proteinuria is present. The original MDRD equation for estimated GFR is not valid for patients less than 18 years of age. Additional information may be found at [email or web address]. 50 Values below the stated reference ranges of AST and ALT can be seen in normal populations. Clinical correlation is suggested. 51 Values below the stated reference ranges of AST and ALT can be seen in normal populations. Clinical correlation is suggested. 52 Instrument flagged sample for slide review. Less than 10% Bands seen, no other immature WBC's seen. RBC morphology essentially normal. Platelet estimate=NORMAL 53 C45.0 D70.1 J91.0 E53.9 Z51.11 E86.0 54 Note: Persistent reduction for 3 months or more in an eGFR <60 mL/min/1.73 m2 defines CKD. Patients with eGFR values >/=60 mL/min/1.73 m2 may also have CKD if evidence of persistent proteinuria is present. The original MDRD equation for estimated GFR is not valid for patients less than 18 years of age. Additional information may be found at [email or web address]. 55 STAT JESIKA PEPE AUTOMATIC TRANSMISSION MECHANIC 56 Petroleum Refinery Worker: [id number] 57 C45.0 D70.1 Z51.11 J91.0 58 Note: Persistent reduction for 3 months or more in an eGFR <60 mL/min/1.73 m2 defines CKD. Patients with eGFR values >/=60 mL/min/1.73 m2 may also have CKD if evidence of persistent proteinuria is present. The original MDRD equation for estimated GFR is not valid for patients less than 18 years of age. Additional information may be found at [email or web address]. 59 Values below the stated reference ranges of AST and ALT can be seen in normal populations. Clinical correlation is suggested. 60 FEW PLATELET CLUMPS 61 C45.0 E53.9 D70.1 E86.0 G89.3 62 Note: Persistent reduction for 3 months or more in an eGFR <60 mL/min/1.73 m2 defines CKD. Patients with eGFR values >/=60 mL/min/1.73 m2 may also have CKD if evidence of persistent proteinuria is present. The original MDRD equation for estimated GFR is not valid for patients less than 18 years of age. Additional information may be found at [email or web address]. 63 Values below the stated reference ranges of AST and ALT can be seen in normal populations. Clinical correlation is suggested. 64 Values below the stated reference ranges of AST and ALT can be seen in normal populations. Clinical correlation is suggested. 65 Instrument flagged sample for slide review. Less than 10% Bands seen, no other immature WBC's seen. RBC morphology essentially normal. Platelet estimate=NORMAL 66 C45.0 67 Note: Persistent reduction for 3 months or more in an eGFR <60 mL/min/1.73 m2 defines CKD. Patients with eGFR values >/=60 mL/min/1.73 m2 may also have CKD if evidence of persistent proteinuria is present. The original MDRD equation for estimated GFR is not valid for patients less than 18 years of age. Additional information may be found at [email or web address]. 68 C45.0 Z51.11 69 Note: Persistent reduction for 3 months or more in an eGFR <60 mL/min/1.73 m2 defines CKD. Patients with eGFR values >/=60 mL/min/1.73 m2 may also have CKD if evidence of persistent proteinuria is present. The original MDRD equation for estimated GFR is not valid for patients less than 18 years of age. Additional information may be found at [email or web address]. 70 Instrument flagged sample for slide review. Less than 10% Bands seen, no other immature WBC's seen. RBC morphology essentially normal. Platelet estimate=SLIGHT INCREASE 71 C45.0 72 Note: Persistent reduction for 3 months or more in an eGFR <60 mL/min/1.73 m2 defines CKD. Patients with eGFR values >/=60 mL/min/1.73 m2 may also have CKD if evidence of persistent proteinuria is present. The original MDRD equation for estimated GFR is not valid for patients less than 18 years of age. Additional information may be found at [email or web address]. 73 LARGE PLATELETS PRESENT. 74 C45.0 Z51.11 D70.01 75 Note: Persistent reduction for 3 months or more in an eGFR <60 mL/min/1.73 m2 defines CKD. Patients with eGFR values >/=60 mL/min/1.73 m2 may also have CKD if evidence of persistent proteinuria is present. The original MDRD equation for estimated GFR is not valid for patients less than 18 years of age. Additional information may be found at [email or web address]. 76 C45.0 77 THERAPEUTIC INR RANGE: 2.0 - 3.0 DVT, Pulmonary embolus, prophylaxis against venous thrombosis or systemic embolization in high risk patients. 2.5 - 3.5 Mechanical heart valves 78 Petroleum Refinery Worker: [id number] 80 LIPASE ALREADY ORDERED FOR 0500 MORNING LABS Tests: liver function tests and lipase Instructions: 81 liver function tests and lipase 82 0.0 - 0.045 ng/mL: Normal 0.046 - 0.5 ng/mL: Suggestive 0.6 - 1.5 ng/mL: Consistent 83 Note: Persistent reduction for 3 months or more in an eGFR <60 mL/min/1.73 m2 defines CKD. Patients with eGFR values >/=60 mL/min/1.73 m2 may also have CKD if evidence of persistent proteinuria is present. The original MDRD equation for estimated GFR is not valid for patients less than 18 years of age. Additional information may be found at [email or web address]. 84 Values below the stated reference ranges of AST and ALT can be seen in normal populations. Clinical correlation is suggested. 85 Note: Persistent reduction for 3 months or more in an eGFR <60 mL/min/1.73 m2 defines CKD. Patients with eGFR values >/=60 mL/min/1.73 m2 may also have CKD if evidence of persistent proteinuria is present. The original MDRD equation for estimated GFR is not valid for patients less than 18 years of age. Additional information may be found at [email or web address]. 86 Tests: LFTS Instructions: 87 0.0 - 0.045 ng/mL: Normal 0.046 - 0.5 ng/mL: Suggestive 0.6 - 1.5 ng/mL: Consistent 88 J90 Z01.812 89 THERAPEUTIC INR RANGE: 2.0 - 3.0 DVT, Pulmonary embolus, prophylaxis against venous thrombosis or systemic embolization in high risk patients. 2.5 - 3.5 Mechanical heart valves 90 J90 91 MODERATE WHITE BLOOD CELLS 92 NO ORGANISMS SEEN 93 FEW EPITHELIAL CELLS 94 NO GROWTH: FINAL REPORT 95 31% OTHER CELLS CONSISTS OF 5% MACROPHAGES AND 26% MESOTHELIAL CELLS. 96 DIFFERENTIAL CHECKED BY REPEAT COUNT LAB.EMM1 BINUCLEATED MESOTHELIAL CELLS AND LARGE CLUSTERS OF ABNORMAL CELLS PRESENT. Hematology Consultation Final Report Case# [id number] Final Diagnosis Specimen labeled pleural fluid, cytospin: -The specimen shows atypical cells, mesothelial cells, monocytes, lymphocytes, neutrophils and red blood cells. Comment: This case was correlated with cytology case ([id number]) which has a diagnosis of highly suspicious of malignant mesothelioma. [place] 10/01/17 Gross Discription: Pleural fluid CORBIN SERRANO MD, Pathologist Reported 10/01/2017 at 9:19 PM, Report electronically signed Performed at: [facility] [id number] [place] [address] 10/02/17 0748: COMMENT: previously reported as: . DIFFERENTIAL CHECKED BY REPEAT COUNT LAB.EMM1 BINUCLEATED MESOTHELIAL CELLS AND LARGE CLUSTERS OF ABNORMAL CELLS PRESENT. Amended result called to: n a - 10/02/17 at 0748 97 TEST INFORMATION: Adenosine Deaminase, Pleural Fluid Test developed and characteristics determined by [facility]. See Compliance Statement B: [employer]/CS Performed at: [facility] [address] [id number] Lining Stuffer: Axel Song MD, Phone: [phone] Performed at: [address] [id number] Lining Stuffer: Kimberly Palomo MD, Phone: [phone] 98 : Peritoneal : Pleural : Synovial [...] the clinical context for interpretation. Performed at: [address] [id number] Lining Stuffer: Kimberly Palomo MD, Phone: [phone] 99 : Peritoneal : Pleural : Synovial : [...] integrated into the clinical context for interpretation. 100 This test was developed and its performance characteristics determined by [facility]. It has not been cleared or approved by the Food and Drug Administration. 101 : Peritoneal : Pleural : Synovial : [...] integrated into the clinical context for interpretation. Procedures Date CPT Code Description Status 10/18/2017 03918 Theraputic Or Diagnostic Injection Completed 09/30/2017 75353 EKG Interpretation And Report Only Completed 09/30/2017 26015 Insertion Tunneled Cent Venous Cathr W Subcut Port 5 Completed Yrs Or Oldr 09/30/2017 72530 Insert indewelling tunneled pleural catheter with cuff Completed 09/24/2017 79138 EGD With Biopsy Completed Encounters Type Date Location Provider CPT E/M Dx Office Visit 06/09/2018 10:15a Oncology Office Jasiel Sofia, [address] C45.0 E61.1 J85.1 E86.0 F06.31 Office Visit 06/04/2018 1:00p [place] [address] C45.0 J85.1 E61.1 R11.2 G89.3 Office Visit 05/22/2018 2:30p Oncology Office ChonmiriamJasiel modi, [address] C45.0 J91.0 J85.1 D64.9 G89.3 Office Visit 04/04/2018 8:30a [place] [address] C45.0 D70.1 E53.9 Office Visit 03/31/2018 10:00a [place] [address] E86.0 R11.0 J91.0 C45.0 Office Visit 03/28/2018 8:00a [place] [address] R11.0 C45.0 J91.0 E86.0 Office Visit 03/24/2018 7:30a [place] [address] Z51.11 C45.0 J91.0 N17.9 D70.1 Office Visit 03/18/2018 11:00a Oncology Office Jasiel Sofia, [address] C45.0 J91.0 N17.9 D70.1 E86.0 R11.2 E53.9 Office Visit 03/14/2018 9:00a [place] [address] R94.4 R11.0 C45.0 Office Visit 03/12/2018 12:00p [place] [address] R94.4 R11.0 C45.0 I82.621 Office Visit 03/06/2018 7:30[place] [address] R94.4 C45.0 E83.42 R11.0 J91.0 W01.10xA Office Visit 03/03/2018 7:30a Infusion Center Jesika Pepe, AUTOMATIC TRANSMISSION MECHANIC 23972 Z51.11 C45.0 E83.42 N17.9 J91.0 F06.4 R11.0 D70.1 Office Visit 02/27/2018 8:30a Infusion Center Jesika Pepe, AUTOMATIC TRANSMISSION MECHANIC [address]8816 C45.0 E83.42 R94.4 J91.0 R11.0 Office Visit 02/24/2018 8:00a [place] [address] N17.9 C45.0 E83.42 E86.0 J91.0 Office Visit 02/19/2018 8:00a [place] [address] N17.9 C45.0 E86.0 E83.42 Office Visit 02/18/2018 7:30a Infusion Center Jesika Pepe, AUTOMATIC TRANSMISSION MECHANIC 53182 R94.4 E83.42 C45.0 Office Visit 02/17/2018 7:00a Infusion Center Jesika Pepe, AUTOMATIC TRANSMISSION MECHANIC 98045 R94.4 R11.0 E83.42 C45.0 Office Visit 02/14/2018 12:30p Infusion Center Jesika Pepe, AUTOMATIC TRANSMISSION MECHANIC 90637 R94.4 E83.42 C45.0 Office Visit 02/13/2018 12:30p Infusion Center Jesika Pepe, AUTOMATIC TRANSMISSION MECHANIC 37475 R94.4 R11.2 Office Visit 02/10/2018 7:30a Infusion Center Jesika Pepe, AUTOMATIC TRANSMISSION MECHANIC 60525 Z51.11 C45.0 E83.42 R94.4 J91.0 Office Visit 01/30/2018 1:00p [place] [address] K12.31 C45.0 Office Visit 01/27/2018 9:45a [place] [address] C45.0 J91.0 F41.9 D70.1 E86.0 Office Visit 01/23/2018 9:30a Infusion Center Jesika Pepe, AUTOMATIC TRANSMISSION MECHANIC 54183 E86.0 R11.0 C45.0 Office Visit 01/20/2018 7:30a Infusion Center Jesika PepeLanny, AUTOMATIC TRANSMISSION MECHANIC 74891 Z51.11 C45.0 J91.0 D70.1 Office Visit 01/17/2018 10:00a [place] [address] C45.0 D70.1 F41.9 J91.0 E53.9 H54.3 Office Visit 01/09/2018 1:30p [place] [address] C45.0 D70.1 F41.9 J91.0 E53.9 Office Visit 12/30/2017 7:30a Infusion Center Jesika Pepe Mireille, AUTOMATIC TRANSMISSION MECHANIC 54282 Z51.11 C45.0 D70.1 R11.2 F41.9 J91.0 H53.8 E83.42 Office Visit 12/16/2017 2:45p [place] [address] C45.0 D70.1 E53.9 R11.2 F41.9 G89.3 J91.0 Office Visit 12/12/2017 9:00a Infusion Center Afshin Jesika B., AUTOMATIC TRANSMISSION MECHANIC 39261 C45.0 R11.2 J91.0 E86.0 Office Visit 12/09/2017 7:30a Infusion Center Afshin Jesika Mireille, AUTOMATIC TRANSMISSION MECHANIC 62241 Z51.11 C45.0 D70.1 R11.0 F06.31 J90 K12.31 E53.9 Office Visit 11/25/2017 9:30a [place] [address] E53.9 R11.2 C45.0 F41.9 D70.1 Office Visit 11/21/2017 11:30a Infusion Center Afshin Jesika B., AUTOMATIC TRANSMISSION MECHANIC 76176 R11.0 F06.31 C45.0 K12.31 E86.0 Office Visit 11/18/2017 7:15a Infusion Center MobileJesika duffy, AUTOMATIC TRANSMISSION MECHANIC 11822 Z51.11 C45.0 E53.9 F06.31 R11.2 K12.31 J90 Office Visit 10/30/2017 1:15p [place] [address] C45.0 E53.9 F41.9 R11.2 D70.1 G89.3 K12.30 Office Visit 10/25/2017 7:00a Infusion Center Jesika PepeLanny, AUTOMATIC TRANSMISSION MECHANIC 34538 Z51.11 C45.0 F41.9 R11.2 D70.1 G89.3 Office Visit 10/23/2017 10:00a [place] [address] C45.0 E53.9 F41.9 G89.3 R11.2 D70.1 D64.9 Office Visit 10/22/2017 11:30a Surgical Office Danie Huynh MD,FACS 97779 C45.0 Office Visit 2017 11:00a [place] [address] C45.0 F41.9 J90 G89.3 Office Visit 09/27/2017 2:00p [place] [address] C45.0 J90 G89.3 F41.9 Office Visit 09/27/2017 1:15p [place] [address] C45.0 R07.9 Office Visit 09/20/2017 9:15a DANIEL Nuñ[place] [address] R12 R93.3 Z12.11 R10.11 Office Visit 09/06/2017 11:30[place] [address] J90 R06.02 Z01.812 Office Visit 12/29/2015 12:45p [place] [address] I20.0 Plan of Care Future Appointment(s):06/23/2018 10:00 am - Jasiel Sofia, DO at Oncology [facility]5706/16/2018 - Jasiel Sofia, DOC45.0 Mesothelioma of agqhjeQ52.1 Iron pbxyulspixD12.1 Abscess of lung with clabonhzaU87 Pleural effusion, not elsewhere classifiedNew Medication:Levaquin 500 mgNew Xrays:Chest, 2 Views
[2018-07-15 13:31] LABS: ABS Basophils 0 10^3/ul (0-0.2); ABS Eosinophils 0.5 10^3/ul (0-0.6); ABS Lymphocytes 0.5 10^3/ul (1.0-4.8); ABS Monocytes 0.7 10^3/ul (0-0.8); ABS Neutrophils 6.7 10^3/ul (1.5-7.7); ABS Nucleated RBC 0 10^3/ul; Eosinophil % 6.2 %; Hematocrit 32 % (42-52); Hemoglobin 10.4 g/dl (14.0-18.0); Lymphocyte % 5.6 %; Mean Corpuscular HGB Conc 33 g/dl (31-36); Mean Corpuscular Hemoglobin 31 pg (27-31); Mean Corpuscular Volume 93 fL (80-94); Mean Platelet Volume 7.6 fL (7.4-10.4); Nucleated Red Blood Cells % 0.2; Platelet Count 265 10^3/ul (150-450); Red Blood Count 3.42 10^6/ul (4.00-5.40); Red Cell Distribution Width 18 % (10.5-15); White Blood Count 8.4 10^3/ul (3.5-10.8)
[2018-07-15 13:47] LABS: EGFR Non-African American 55.8 (>60)
[2018-07-15 14:25] LABS: Urine Appearance Clear; Urine Blood Negative (Negative); Urine Color Yellow; Urine Ketones Negative (Negative); Urine Protein Negative (Negative); Urine Specific Gravity 1.008 (1.010-1.030); Urine Urobilinogen Negative (Negative)
[2018-07-15] MEDS ORDERED: Acetaminophen TAB* 325 MG PO PRN (17:30)
[2018-07-15] MEDS ORDERED: NS 0.9% 1000 ML* 1,000 ML IV SCH (17:30)
[2018-07-15] MEDS ORDERED: Meclizine TAB* 12.5 MG PO PRN (17:36)
[2018-07-15] MEDS ORDERED: HYDROmorphone TAB* 4 MG PO PRN ×2 (17:36→22:00)
[2018-07-15] MEDS ORDERED: HYDROmorphone INJ* 2 MG/ML CARPUJECT SYRINGE IV SLOW PU ONE (18:06)
[2018-07-15] MEDS ORDERED: HYDROmorphone INJ1* 1 MG/ML SYRINGE ONE (18:07)
[2018-07-15] MEDS: Ondansetron INJ* 2 MG/ML VIAL IV PRN (18:10)
[2018-07-15] MEDS: fentaNYL PATCHs 100 MCG/HR TRANSDERM SCH ×2 (18:24→21:44)
[2018-07-15] MEDS ORDERED: Polyethylene Glycol 3350* 17 GM PACKET PO PRN (19:10)
[2018-07-15] MEDS: fentaNYL Patch Check Q Shift 1 NOTE FOLLOW UP SCH (21:45)
[2018-07-15] MEDS: Omeprazole CAP* 20 MG PO SCH (21:47)
[2018-07-15] MEDS: HYDROmorphone TAB* 4 MG PO PRN (21:47)
[2018-07-15] MEDS: Senna TAB PO SCH (21:48)
--- NOTE | 2018-07-16 04:49 | HP ---
HISTORY AND PHYSICAL: DATE OF ADMISSION: 07/15/18 PRIMARY CARE PROVIDER: . PROVIDER: Uma Vivar NP ATTENDING PHYSICIAN WHILE IN THE HOSPITAL: Dr. Leia Jose * (dictated by Uma Vivar NP). CHIEF COMPLAINT: Weakness. HISTORY OF PRESENT ILLNESS: Mr. Pollack is a 57-year-old male with a past medical history significant for mesothelioma, history of DVT, depression, who presented to the emergency room with increased weakness and fatigue and vomiting. The patient recently had treatment for his mesothelioma in April 2018. Status post the treatment, he developed sepsis and was admitted at [facility] where he had a chest tube placed for empyema and was subsequently in the hospital for several weeks for treatment of his sepsis. He was discharged in mid May to home and since then, he continues to feel weak , fatigue, and tired with generalized body aches. The patient also reports that he was recently weaned and discontinued his gabapentin. He also reports night sweats and severe increasing depression due to the recent events in his life with his chronic illnesses and significant change in previous lifestyle. The patient was unable to walk in the emergency room and due to his increased weakness, we were asked to see and evaluate him for admission. PAST MEDICAL HISTORY: Significant for: 1. DVT. 2. Mesothelioma. 3. Depression. PAST SURGICAL HISTORY: on the right. HOME MEDICATIONS: Include: 1. Colace 100 mg p.o. daily p.r.n. 2. Meclizine 25 mg p.o. t.i.d. p.r.n. 3. Alprazolam 2 mg p.o. daily p.r.n. 4. Zyprexa 5 mg p.o. daily p.r.n. 5. Hydromorphone 4-6 mg q.4 hours as needed. 6. Fentanyl patch 100 mcg q.72 hours. 7. Xarelto 20 mg p.o. daily. 8. Omeprazole 40 mg p.o. b.i.d. ALLERGIES: No known drug allergies. FAMILY HISTORY: No reported history of coronary artery disease, diabetes. Brother with a history of lymphoma. SOCIAL HISTORY: The patient reports the he quit smoking approximately 30 years ago. He does report rare alcohol use. Denies any illicit drug use. He is single. He lives alone. Surrogate decision maker is his son. He is a full code. REVIEW OF SYSTEMS: He denies any fever. Does report significant loss of appetite. Reports approximately 15-pound weight loss in the past month. Denies any chest pain or edema. Denies any cough, hemoptysis, or shortness of breath. Denies any nausea. Does report vomiting. Denies any diarrhea. Does report constipation. Denies any gross hematuria or dysuria. Denies any weakness or sensory loss. Denies any visual complaints. Denies any dysphagia. Denies any arthralgias or myalgias. Denies any rashes or lesions. Does report increased depression. Denies any anxiety. PHYSICAL EXAMINATION GENERAL: At this time, Mr. Pollack is a 57-year-old male. He appears pale, resting on the stretcher in the emergency room. He appears to be in moderate amount of pain. VITAL SIGNS: Blood pressure 113/81, heart rate was 87, O2 saturation 98%, respirations were 16, temperature was 99.4. HEENT: Head is atraumatic, normocephalic. Eyes: EOMs are intact. Sclerae anicteric. Oral mucosa appeared to be dry. Color is pale. NECK: Supple. LUNGS: Clear to auscultation bilaterally with acute scattered rhonchi in the bases bilaterally. No wheezes. The patient does complain of pain to his right lower rib area at the site of previous chest tube insertion that is currently healed. CARDIOVASCULAR: S1, S2. Regular rate and rhythm. No murmurs, rubs, or gallops. ABDOMEN: Soft. Nontender. Bowel sounds are present x4. EXTREMITIES: Pulses are +2 bilaterally. He is able to move all 4 extremities with 3/5 strength. NEUROLOGIC: He is awake, alert, and oriented x3. He appears depressed and tearful at the time of evaluation. His speech is clear. There are no gross focal deficits. SKIN: Intact. DIAGNOSTIC STUDIES/LAB DATA: WBCs were 8.4, RBCs 3.42, hemoglobin is 10.4, hematocrit was 32, platelet count was 265. Sodium 137, potassium 4.5, chloride 101, carbon dioxide was 29, anion gap was 7, BUN was 12, creatinine 1.33, lactic acid was 1.1, glucose 107, calcium 9.8. Iron 51, total iron binding capacity was 242, iron saturation was 21, unsaturated iron binding is less than 227, transferrin is 173. ASTs were 13, ALTs were 8, alkaline phosphatase was 113. Urine was yellow, clear; pH was 7, specific gravity was 1.008; urine protein, ketones, blood, nitrite, bilirubin, urobilinogen, leukocyte esterase, and glucose were all negative. Flu A and B were negative. The patient had a chest x-ray. Radiologist's impression: There is right pleural effusion with some scarring in the right lung base. Surgical clips noted in the right hilum. Central line in the superior vena cava. ASSESSMENT AND PLAN: Mr. Pollack is a 57-year-old male who presented to the emergency room with complaints of increased weakness and fatigue. We were asked to see him due to his inability to ambulate and weakness. 1. Weakness. I suspect this is related to combination of his chronic illness with mesothelioma, recent hospitalization for sepsis after treatment for his mesothelioma, depression, and recent changes in his medications. We will give him some gentle IV hydration. We will monitor him overnight. I will get Physical Therapy consult in the morning. His primary oncologist called and discussed the patient's condition with Dr. Carr in the emergency room. They recommended getting iron studies and a CTA of the chest. I will get a CTA of the chest in the a.m. to further evaluate the patient's underlying medical condition of mesothelioma. 2. Depression. We will continue on Zyprexa as previously prescribed. I would recommend that the patient have consultation from psychiatrist due to his profound depression. 3. History of deep venous thrombosis. We will continue on Xarelto as previously prescribed. 4. Chronic pain. Continue him on his Dilaudid as previously prescribed and fentanyl patch as previously prescribed. 5. Vomiting. We will continue his Zofran 4 mg IV q.6 hours as needed for nausea. 6. Constipation. I will place him on senna 1 tablet p.o. b.i.d. and MiraLAX as needed for the constipation. Creatinine is mildly elevated but appears to be at baseline. We will continue to monitor and avoid nephrotoxic medications. 7. FEN. He can have regular diet. 8. DVT prophylaxis. We will continue him on Xarelto. 9. Code status. He is a full code. TIME SPENT: Time spent on this admission was 60 minutes, greater than half the time was spent [id number] with the patient obtaining my history and physical, the other half of the time was spent going over my plan of care and implementing my plan of care. I have requested the records from [facility] as well as [facility] to review his recent admissions and treatments. I have discussed this with my attending, Dr. Leia Jose, and she is in agreement with my plan. UMA VIVAR, GERIATRIC PHYSICIAN [id number]/CPS #: [id number] [place]
[2018-07-16] MEDS: HYDROmorphone TAB* 4 MG PO PRN ×3 (05:07→11:20)
[2018-07-16 05:11] LABS: ABS Basophils 0 10^3/ul (0-0.2); ABS Eosinophils 0.7 10^3/ul (0-0.6); ABS Lymphocytes 0.8 10^3/ul (1.0-4.8); ABS Monocytes 0.6 10^3/ul (0-0.8); ABS Neutrophils 1.9 10^3/ul (1.5-7.7); ABS Nucleated RBC 0 10^3/ul; Eosinophil % 18.2 %; Hematocrit 29 % (42-52); Hemoglobin 9.4 g/dl (14.0-18.0); Lymphocyte % 19.3 %; Mean Corpuscular HGB Conc 33 g/dl (31-36); Mean Corpuscular Hemoglobin 31 pg (27-31); Mean Corpuscular Volume 94 fL (80-94); Mean Platelet Volume 7.3 fL (7.4-10.4); Nucleated Red Blood Cells % 0; Platelet Count 224 10^3/ul (150-450); Red Blood Count 3.08 10^6/ul (4.00-5.40); Red Cell Distribution Width 18 % (10.5-15); White Blood Count 4.1 10^3/ul (3.5-10.8)
[2018-07-16 05:31] LABS: EGFR Non-African American 56.3 (>60)
[2018-07-16] MEDS: fentaNYL Patch Check Q Shift 1 NOTE FOLLOW UP SCH (07:12)
[2018-07-16] MEDS: Omeprazole CAP* 20 MG PO SCH (08:07)
[2018-07-16] MEDS: Ondansetron INJ* 2 MG/ML VIAL IV PRN (08:07)
[2018-07-16] MEDS: Senna TAB PO SCH (08:07)
[2018-07-16] MEDS ORDERED: Rivaroxaban TAB(*) 20 MG TAB PO SCH (09:00)
[2018-07-16] MEDS ORDERED: OLANzapine TAB* 5 MG PO SCH (09:00)
[2018-07-16 13:32] VITALS: BP 116/76
== END 2018-07-16 15:00 | disposition home or self-care (01) ==
LOC: ED 12:39 → MED 17:30
PROVIDERS: ADMIT Internal Medicine; ATTEND Internal Medicine
DX: R53.1 Weakness (principal); R07.9 Chest pain, unspecified; G89.29 Other chronic pain; Z86.718 Personal history of other venous thrombosis and embolism; C45.9 Mesothelioma, unspecified; F32.9 Major depressive disorder, single episode, unspecified; R11.10 Vomiting, unspecified; K59.00 Constipation, unspecified
CPT/HCPCS: 36415; 71046; 80048; 80053; 81003; 83540; 83550; 83605; 85025; 87040; 93005; 99285; A9270-GY; G8978-GP-CI; G8979-GP-CI; G8980-GP-CI; J1170; J1642; J2405